=== PATIENT | female | born 2000 | race Caucasian/White ===

== ENCOUNTER 2018-02-19 18:26 | Emergency (ER) | payer SELFPAY ==
[~2018-02-19] VITALS: Ht 154.9 cm; Wt 49.9 kg
--- OUTSIDE RECORDS SUMMARY | 2018-02-19 18:30 | XMS REPORT ---
Author Author ELIZA BARKER Organization [facility] Address [address] [place] [address] Care Team Providers Care Derivatives Trader Name Role Phone ELIZA BARKER Unavailable PROBLEMS Type Condition ICD9-CM Code EKS17-GK Code Onset Dates Condition Status SNOMED Code Problem Current moderate episode of major depressive disorder, unspecified whether recurrent F32.1 Active 37857726 Problem Hair loss L65.9 Active 864019965 ALLERGIES Substance Reaction Event Type Date Status Penicillin V Potassium anaphylaxis Drug Allergy Nov, Active ENCOUNTERS Encounter Location Date Diagnosis [facility] [id number] [place] [address] 74998 -3643 Nov, Current moderate episode of major depressive disorder, unspecified whether recurrent F32.1 [facility] [id number] [place] [address] 69525- 3402 Nov, [facility] [id number] [place] [address] 40464- 8747 Nov, [facility] [id number] [place] [address] 53116- 9680 Nov, Unspecified contraceptive management Z30.9 [facility] [id number] [place] [address] 03939 -9906 Nov, [facility] [id number] [place] [address] 84845 -6459 Nov, [facility] [id number] [place] [address] 50283 -3487 Nov, [facility] [id number] [place] [address] 87041- 3025 Nov, Current moderate episode of major depressive disorder, unspecified whether recurrent F32.1 [place] [id number] [place] [address] 35531- 0318 Oct, [place] [id number] [place] [address] 90892- 6794 Sep, Current moderate episode of major depressive disorder, unspecified whether recurrent F32.1 [place] [id number] [place] [address] 30833- 8709 Sep, Current moderate episode of major depressive disorder, unspecified whether recurrent F32.1 [place] [id number] [place] [address] 82249- 1921 August, Current moderate episode of major depressive disorder, unspecified whether recurrent F32.1 [place] [id number] [place] [address] 95246- 4655 August, Pain of left hand M79.642 and Pain in right hand M79.641 [place] [id number] [place] [address] 03149- 1068 August, Pain of left hand M79.642 ; Pain in right hand M79.641 ; Pain in left wrist M25.532 ; Pain in right wrist M25.531 and Bilateral elbow tendonitis M77.8 [place] [id number] [place] [address] 16203- 7287 Jul, Hair loss L65.9 [place] [id number] [place] [address] 02835- 7655 28 May, 2017 Fatigue, unspecified type R53.83 and Family history of diabetes mellitus Z83.3 [place] [id number] [place] [address] 11844- 3773 May, Unspecified contraceptive management Z30.9 [place] [id number] [place] [address] 73682- 9556 Apr, Encounter for Depo-Provera contraception Z30.42 [place] [id number] [place] [address] 25640- 2587 Apr, [facility] [id number] [place] [address] 29804- 6899 Feb, Encounter for Depo-Provera contraception Z30.42 [facility] [id number] [place] [address] 32720 -5124 Jan, Colitis K52.9 [facility] [address] 16781- 7973 Dec, Sore throat J02.9 and Acute nasopharyngitis J00 [place] [id number] [place] [address] 25471- 4715 Nov, control counseling Z30.09 ; Screening for STD sexually transmitted disease Z11.3 and Encounter for Depo-Provera contraception Z30.42 [place] [id number] [place] [address] 55420- 7105 August, [facility] [id number] [place] [address] 70936 -7225 Jul, Screening breast examination Z12.39 [place] [address] 96039- 5886 Jul, Encounter for Depo-Provera contraception Z30.42 [place] [id number] [place] [address] 11271- 5434 Apr, Encounter for Depo-Provera contraception Z30.42 [place] [id number] [place] [address] 45425- 0750 Feb, Encounter for Depo-Provera contraception Z30.42 [place] [id number] [place] [address] 52568- 9305 07 Dec, 2015 Pelvic pain R10.2 [place] [id number] [place] [address] 05396- 8362 Oct, Well child check Z00.129 ; Encounter for immunization Z23 ; Dietary counseling Z71.3 and Exercise counseling Z71.89 [facility] [address] [address]- 8852 Oct, Encounter for Depo-Provera contraception Z30.42 [facility] [address] [address]- 9656 Jul, Encounter for Depo-Provera contraception Z30.42 [address] [id number] Jun, Dental examination Z01.20 [facility] [address] [address] Jun, Encounter for dental examination Z01.20 [place] [address] [place] [address] 20264- 9208 May, Surveillance of contraceptive injection Z30.42 ; Encounter for Depo-Provera contraception Z30.42 and Routine screening for STI (sexually transmitted infection) Z11.3 [place] [address] [place] [address] 11226- 5644 Feb, Initiation of Depo Provera Z30.8 and Encounter for prescription for depo-Provera Z30.013 [place] [address] [place] [address] 41364- 8988 Jan, Sore throat J02.9 and Chronic tonsillitis J35.01 [place] [address] [place] [address] 58660- 0275 Oct, Routine child health exam V20.2 ; Dietary counseling and surveillance V65.3 and Exercise counseling V65.41 [place] [address] [place] [address] 89135- 2712 Jul, [place] [address] [place] [address] 31415- 9484 Jul, [place] [address] [place] [address] 94344- 4637 Apr, [place] [id number] [place] [address]- 4763 Apr, [facility] [address] [id number] [place] [address]- 7228 Apr, [facility] [place] [facility] [address] [id number] [place] [address]- 0814 Apr, [facility] [address] [id number] [place] [address]- 8010 Apr, [facility] [address] [id number] [place] [address]- 2895 Apr, [facility] [address] [id number] [place] [address]- 1913 Mar, [facility] [address] [id number] [place] [address]- 3639 Mar, [facility] [address] [id number] [place] [address]- 7344 Mar, [facility] [address] [id number] [place] [address]- 8536 Mar, [facility] [address] [id number] [place] [address]- 8805 Mar, [facility] [address] [id number] [place] [address]- 6117 Mar, [facility] [place] [facility] [address] [id number] [place] [address]- 1786 Mar, [facility] [place] [facility] [address] [id number] [place] [address]- 0594 Mar, [facility] [place] [facility] [address] [id number] [place] [address] Mar, [facility] [place] [facility] [address] [id number] [place] [address]- 8976 17 Mar, 2014 [facility] [place] [facility] [address] [id number] [place] [address]- 2759 Mar, [facility] [place] [facility] [address] [id number] [place] [address]- 5891 Mar, [facility] [place] [facility] [address] [id number] [place] [address]- 1255 Jan, [facility] [place] [facility] [address] [id number] [place] [address]- 3040 Jan, [facility] [place] [facility] [address] [id number] [place] [address]- 9496 Jan, [facility] [place] [facility] [address] [id number] [place] [address]- 8612 Jan, [facility] [place] [facility] [address] [id number] [place] [address]- 3546 Dec, [facility] [place] [facility] [address] [id number] [place] [address]- 5782 Dec, [facility] [place] [facility] [address] [id number] [place] [address]- 9945 August, [facility] [place] [facility] [address] [id number] [place] [address]- 5676 August, [facility] [place] [facility] [address] [id number] [place] [address]- 5033 Jun, [facility] [place] [facility] [address] [id number] [place] [address]- 1389 Jun, [facility] [place] [facility] [address] [id number], [place] [address]- 5378 Apr, [facility] [place] [facility] [address] [id number] [place] [address]- 0040 Apr, [facility] [place] [facility] [address] [id number] [place] [address]- 8036 Mar, [facility] [place] [facility] [address] [id number] [place] [address]- 7845 Mar, [facility] [place] [facility] [address] [id number], [place] [address]- 3056 14 Feb, 2013 [facility] [address] [facility] [id number] [address]- 5964 14 Feb, 2013 [facility] [id number] [address]- 8926 Oct, [facility] [id number], [place] [address]- 7067 Jul, [facility] [id number], [place] [address]- 5610 Jul, [facility] [id number], [place] [address]- 2935 Mar, [facility] [address] [id number], [place] [address]- 1272 August, IMMUNIZATIONS No Known Immunizations SOCIAL HISTORY Never Assessed REASON FOR VISIT Depression F/U for meds uzma SOLOMON PLAN OF CARE Activity Details Follow Up 3 Months, prn Reason:depression VITAL SIGNS Height 60.5 in 2017-11-28 Weight 108 lbs 2017-11-28 Temperature 98.1 degrees Fahrenheit 2017-11-28 Heart Rate 78 bpm 2017-11-28 Respiratory Rate 16 2017-11-28 BMI 20.74 kg/m2 2017-11-28 Blood pressure systolic 102 mmHg 2017-11-28 Blood pressure diastolic 66 mmHg 2017-11-28 MEDICATIONS Medication Instructions Dosage Frequency Start Date End Date Duration Status Ortho Tri-Cyclen (28) 0.18/0.215/0.25 MG-35 MCG Orally Once a day 1 tablet 24h May, 28 day(s) Active Paroxetine HCl 20 mg Orally Once a day 1 tablet in the morning 24h August, 30 day(s) Active Doxycycline 40 MG Orally Once a day 1 capsule on an empty stomach in the morning 24h Active RESULTS No Results PROCEDURES No Known procedures INSTRUCTIONS MEDICATIONS ADMINISTERED No Known Medications MEDICAL (GENERAL) HISTORY Type Description Date Medical History Depressive disorder, not elsewhere classified Surgical History myringotomy with ventilating tube Surgical History umbilical hernia surgery 2010
--- OUTSIDE RECORDS SUMMARY | 2018-02-19 18:30 | XMS REPORT ---
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 Name Role Phone ELIZA BARKER Unavailable PROBLEMS Type Condition ICD9-CM Code SKK80-DL Code Onset Dates Condition Status SNOMED Code Problem Current moderate episode of major depressive disorder, unspecified whether recurrent F32.1 Active 37997018 Problem Hair loss L65.9 Active 749335391 ALLERGIES No Information ENCOUNTERS Encounter Location Date Diagnosis [facility] [id number] [place] [address] 60598 -2150 Nov, Current moderate episode of major depressive disorder, unspecified whether recurrent F32.1 [facility] [id number] [place] [address] 59682- 0165 Nov, Unspecified contraceptive management Z30.9 [facility] [address] 81767- 0544 Nov, [facility] [id number] [place] [address] 00792- 8037 Nov, [facility] [id number] [place] [address] 91226 -2942 Nov, [facility] [id number] [place] [address] 75871 -0455 Nov, [facility] [id number] [place] [address] 11636 -5830 Nov, [facility] [id number] [place] [address] 47124- 7498 Nov, Current moderate episode of major depressive disorder, unspecified whether recurrent F32.1 [facility] [address] [place] [address]- 0917 Oct, [place] [id number] [place] [address] 90158- 1683 Sep, Current moderate episode of major depressive disorder, unspecified whether recurrent F32.1 [place] [id number] [place] [address] 98242- 9178 Sep, Current moderate episode of major depressive disorder, unspecified whether recurrent F32.1 [place] [id number] [place] [address] 89723- 5724 August, Current moderate episode of major depressive disorder, unspecified whether recurrent F32.1 [place] [id number] [place] [address] 31994- 1506 August, Pain of left hand M79.642 and Pain in right hand M79.641 [place] [address] 35484- 8610 August, Pain of left hand M79.642 ; Pain in right hand M79.641 ; Pain in left wrist M25.532 ; Pain in right wrist M25.531 and Bilateral elbow tendonitis M77.8 [place] [id number] [place] [address] 51865- 3716 Jul, Hair loss L65.9 [place] [id number] [place] [address] 88783- 6499 28 May, 2017 Fatigue, unspecified type R53.83 and Family history of diabetes mellitus Z83.3 [place] [id number] [place] [address] 29552- 4147 May, Unspecified contraceptive management Z30.9 [place] [address] 43344- 3171 Apr, Encounter for Depo-Provera contraception Z30.42 [place] [id number] [place] [address] 65463- 1969 Apr, [place] [id number] [place] [address] 15378- 5853 Feb, Encounter for Depo-Provera contraception Z30.42 [facility] [id number] [place] [address] 62516 -0998 Jan, Colitis K52.9 [facility] [id number] [place] [address] 77687- 2385 Dec, Sore throat J02.9 and Acute nasopharyngitis J00 [place] [id number] [place] [address] 29575- 2223 Nov, control counseling Z30.09 ; Screening for STD sexually transmitted disease Z11.3 and Encounter for Depo-Provera contraception Z30.42 [place] [id number] [place] [address] 24779- 7704 August, [facility] [id number] [place] [address] 68625 -5733 Jul, Screening breast examination Z12.39 [place] [id number] [place] [address] 20850- 0586 Jul, Encounter for Depo-Provera contraception Z30.42 [place] [id number] [place] [address] 53481- 9939 Apr, Encounter for Depo-Provera contraception Z30.42 [place] [id number] [place] [address] 46864- 7858 Feb, Encounter for Depo-Provera contraception Z30.42 [place] [id number] [place] [address] 51033- 4872 07 Dec, 2015 Pelvic pain R10.2 [place] [id number] [place] [address] 01929- 5905 Oct, Well child check Z00.129 ; Encounter for immunization Z23 ; Dietary counseling Z71.3 and Exercise counseling Z71.89 [place] [id number], [place] [address]- 6774 Oct, Encounter for Depo-Provera contraception Z30.42 [place] [address] [place] [address] 81813- 9612 Jul, Encounter for Depo-Provera contraception Z30.42 [place] [address] [id number] [id number] Jun, Dental examination Z01.20 [facility] [address] [id number] Jun, Encounter for dental examination Z01.20 [place] [id number] [place] [address] 16110- 8832 May, Surveillance of contraceptive injection Z30.42 ; Encounter for Depo-Provera contraception Z30.42 and Routine screening for STI (sexually transmitted infection) Z11.3 [place] [id number] [place] [address] 37120- 5289 Feb, Initiation of Depo Provera Z30.8 and Encounter for prescription for depo-Provera Z30.013 [place] [id number] [place] [address] 78549- 1171 Jan, Sore throat J02.9 and Chronic tonsillitis J35.01 [place] [address] [place] [address] 01649- 0636 Oct, Routine child health exam V20.2 ; Dietary counseling and surveillance V65.3 and Exercise counseling V65.41 [place] [address], [place] [address]- 6770 Jul, [place] [id number] [place] [address] 30936- 4700 Jul, [place] [id number] [place] [address] 15600- 3657 Apr, [place] [id number] [place] [address] 20915- 3732 Apr, [facility] [place] [facility] [address] [id number] [place] [address]- 9395 Apr, [facility] [place] [facility] [address] [id number] [place] [address]- 9428 Apr, [facility] [place] [facility] [address] [id number] [place] 7834 Apr, [facility] [place] [facility] [address] [id number] [place] [address]- 8654 Apr, [facility] [place] [facility] [address] [id number] [place] [address]- 2992 Mar, [facility] [place] [facility] [address] [id number] [place] [address]- 1991 Mar, [facility] [place] [facility] [address] [id number] [place] [address]- 1637 Mar, [facility] [place] [facility] [address] [id number] [place] [address]- 5376 Mar, [facility] [place] [facility] [address] [id number] [place] [address]- 3342 Mar, [facility] [place] [facility] [address] [id number] [place] [address]- 0730 Mar, [facility] [place] [facility] [address] [id number] [place] [address]- 8056 Mar, [facility] [place] [facility] [address] [id number] [place] [address]- 9240 Mar, [facility] [place] [facility] [address] [id number] [place] [address]- 3229 Mar, [facility] [place] [facility] [address] [id number] [place] [address]- 0884 17 Mar, 2014 [facility] [place] [facility] [address] [id number] [place] 9109 Mar, [facility] [place] [facility] [address] [id number] [place] [address]- 9103 Mar, [facility] [address] [id number] [place] [address]- 0695 Jan, [facility] [place] [facility] [address] [id number] [place] [address]- 3776 Jan, [facility] [address] [id number] [place] [address]- 0256 Jan, [facility] [place] [facility] [address] [id number] [place] [address] 2542 Jan, [facility] [place] [facility] [address] [id number] [place] [address]- 6727 Dec, [facility] [place] [facility] [address] [id number] [place] [address]- 4358 Dec, [facility] [address] [id number] [place] [address]- 8239 August, [facility] [address] [id number] [place] [address]- 9253 August, [facility] [place] [facility] [address] [id number] [place] [address]- 0290 Jun, [facility] [place] [facility] [address] [id number] [place] [address]- 1565 Jun, [facility] [place] [facility] [address] [id number] [place] [address]- 7784 Apr, [facility] [place] [facility] [address] [id number] [place] [address]- 8668 Apr, [facility] [place] [facility] [address] [id number] [place] [address]- 9402 Mar, [facility] [place] [facility] [address] [id number] [place] [address]- 8640 Mar, [facility] [place] [facility] [address] [id number] [place] [address]- 7561 14 Feb, 2013 [facility] [address] [id number], [place] [address]- 7116 14 Feb, 2013 [facility] [id number] [address] Oct, [facility] [id number], [place] [address] Jul, [facility] [id number], [place] [address] Jul, [facility] [id number], [place] [address] Mar, [facility] [address] [id number], [place] [address] August, IMMUNIZATIONS No Known Immunizations SOCIAL HISTORY Never Assessed REASON FOR VISIT New Refill Request PLAN OF CARE VITAL SIGNS MEDICATIONS No Known Medications RESULTS No Results PROCEDURES No Known procedures INSTRUCTIONS MEDICATIONS ADMINISTERED No Known Medications MEDICAL (GENERAL) HISTORY Type Description Date Medical History Depressive disorder, not elsewhere classified Surgical History myringotomy with ventilating tube Surgical History umbilical hernia surgery 2010
--- OUTSIDE RECORDS SUMMARY | 2018-02-19 18:30 | XMS REPORT ---
Author Author ELIZA BARKER Organization [facility] Address [address] [place] [address] Care Team Providers Care Diabetologist Name Role Phone ELIZA BARKER Unavailable PROBLEMS Type Condition ICD9-CM Code [id number] Code Onset Dates Condition Status SNOMED Code Problem Current moderate episode of major depressive disorder, unspecified whether recurrent F32.1 Active 37548807 Problem Hair loss L65.9 Active [id number] ALLERGIES No Information ENCOUNTERS Encounter Location Date Diagnosis [facility] [id number] [place] [address] [id number] Dec, [facility] [address] [address]17 -[address] Nov, Current moderate episode of major depressive disorder, unspecified whether recurrent F32.1 [facility] [id number] [place] [address] 20754- 1046 Nov, Unspecified contraceptive management Z30.9 [facility] [id number] [place] [address] 97318- 7775 Nov, [facility] [id number] [place] [address] 00643- 4514 Nov, [facility] [id number] [place] [address] 19662 -1773 Nov, [facility] [id number] [place] [address] 45502 -8211 Nov, [facility] [id number] [place] [address] 04280 -6067 Nov, [facility] [id number] [place] [address] 14038- 7564 Nov, Current moderate episode of major depressive disorder, unspecified whether recurrent F32.1 [address], [place] [address] 0177 Oct, [place] [id number] [place] [address] 60895- 9626 Sep, Current moderate episode of major depressive disorder, unspecified whether recurrent F32.1 [place] [id number] [place] [address] 29698- 6083 Sep, Current moderate episode of major depressive disorder, unspecified whether recurrent F32.1 [place] [id number] [place] [address] 09458- 9556 August, Current moderate episode of major depressive disorder, unspecified whether recurrent F32.1 [place] [id number] [place] [address] 05471- 6242 August, Pain of left hand M79.642 and Pain in right hand M79.641 [place] [id number] [place] [address] 67159- 2540 August, Pain of left hand M79.642 ; Pain in right hand M79.641 ; Pain in left wrist M25.532 ; Pain in right wrist M25.531 and Bilateral elbow tendonitis M77.8 [place] [id number] [place] [address] 22291- 4399 Jul, Hair loss L65.9 [place] [id number] [place] [address] 63275- 5697 May, Fatigue, unspecified type R53.83 and Family history of diabetes mellitus Z83.3 [place] [id number] [place] [address] 97433- 3655 May, Unspecified contraceptive management Z30.9 [address] [id number] [place] [address] 94045- 2670 Apr, Encounter for Depo-Provera contraception Z30.42 [place] [id number] [place] [address] 36048- 9527 Apr, [facility] [id number] [place] [address] 15365- 5323 Feb, Encounter for Depo-Provera contraception Z30.42 [facility] [id number] [place] [address] 90600 -6135 Jan, Colitis K52.9 [facility] [address] 31413- 5688 Dec, Sore throat J02.9 and Acute nasopharyngitis J00 [address] 88849- 3305 Nov, control counseling Z30.09 ; Screening for STD sexually transmitted disease Z11.3 and Encounter for Depo-Provera contraception Z30.42 [place] [id number] [place] [address] 07626- 4183 August, [facility] [id number] [place] [address] 11760 -4139 Jul, Screening breast examination Z12.39 [place] [id number] [place] [address] 45874- 8538 Jul, Encounter for Depo-Provera contraception Z30.42 [place] [id number] [place] [address] 13534- 6404 Apr, Encounter for Depo-Provera contraception Z30.42 [place] [id number] [place] [address] 16531- 3331 Feb, Encounter for Depo-Provera contraception Z30.42 [place] [address] 60797- 6317 Dec, Pelvic pain R10.2 [place] [id number] [place] [address] 63305- 8763 Oct, Well child check Z00.129 ; Encounter for immunization Z23 ; Dietary counseling Z71.3 and Exercise counseling Z71.89 [address], [place] [address] 6927 Oct, Encounter for Depo-Provera contraception Z30.42 [address], [place] [address]- 9563 Jul, Encounter for Depo-Provera contraception Z30.42 [id number] [id number] Jun, Dental examination Z01.20 [facility] [address] [place] [address] [id number] Jun, Encounter for dental examination Z01.20 [address] [id number] [place] [address] 84220- 1119 May, Surveillance of contraceptive injection Z30.42 ; Encounter for Depo-Provera contraception Z30.42 and Routine screening for STI (sexually transmitted infection) Z11.3 [id number] [place] [address] 33939- 3294 Feb, Initiation of Depo Provera Z30.8 and Encounter for prescription for depo-Provera Z30.013 [place] [address], [place] [address]- 9463 07 Jan, 2015 Sore throat J02.9 and Chronic tonsillitis J35.01 [place] [address] [address] [place] [address] 00300- 4104 08 Oct, 2014 Routine child health exam V20.2 ; Dietary counseling and surveillance V65.3 and Exercise counseling V65.41 [place] [id number] [place] [address] 06393- 8775 14 Jul, 2014 [place] [id number] [place] [address] 89945- 3259 13 Jul, 2014 [place] [id number] [place] [address] 99740- 3369 Apr, [facility] [place] [facility] [address] [id number] [place] [address]- 6346 Apr, [facility] [place] [facility] [address] [id number] [place] [address]- 8791 Apr, [facility] [place] [facility] [address] [id number] [place] [address]- 9214 Apr, [facility] [place] [facility] [address] [id number] [place] [address]- 3019 Apr, [facility] [place] [facility] [address] [id number] [place] [address]- 2975 Apr, [facility] [place] [facility] [address] [id number] [place] [address]- 8295 Mar, [facility] [place] [facility] [address] [id number] [place] [address]- 0021 Mar, [facility] [place] [facility] [address] [id number] [place] [address]- 1481 Mar, [facility] [place] [facility] [address] [id number] [place] [address]- 3385 Mar, [facility] [place] [facility] [address] [id number] [place] [address]- 8594 Mar, [facility] [place] [facility] [address] [id number] [place] [address]- 9255 18 Mar, 2014 [facility] [place] [facility] [address] [id number] [place] [address]- 9115 18 Mar, 2014 [facility] [place] [facility] [address] [id number] [place] [address]- 7777 18 Mar, 2014 [facility] [place] [facility] [address] [id number] [place] [address]- 3323 18 Mar, 2014 [facility] [place] [facility] [address] [id number] [place] [address]- 0139 17 Mar, 2014 [facility] [place] [facility] [address] [id number] [place] [address]- 2016 Mar, [facility] [place] [facility] [address] [id number] [place] [address]- 6858 Mar, [facility] [place] [facility] [address] [id number] [place] [address]- 2702 Jan, [facility] [place] [facility] [address] [id number] [place] [address]- 5043 Jan, [facility] [place] [facility] [address] [id number] [place] [address]- 5122 Jan, [facility] [place] [facility] [address] [id number] [place] [address]- 6516 Jan, [facility] [place] [facility] [address] [id number] [place] [address]- 7100 Dec, [facility] [place] [facility] [address] [id number] [place] [address]- 0030 Dec, [facility] [place] [facility] [address] [id number] [place] [address]- 3137 August, [facility] [place] [facility] [address] [id number] [place] [address]- 3131 August, [facility] [place] [facility] [address] [facility] [id number] [place] [address]- 5105 Jun, [facility] [place] [facility] [address] [id number] [place] [address]- 2671 Jun, [facility] [place] [facility] [address] [id number] [place] [address]- 4922 Apr, [facility] [place] [facility] [address] [id number] [place] [address]- 1498 Apr, [facility] [place] [facility] [address] [id number] [place] [address]- 2365 Mar, [facility] [place] [facility] [address] [id number] [place] [address]- 8467 Mar, [facility] [id number], [place] [address]- 9685 Feb, [facility] [address], [place] [address]- 5316 Feb, [facility] [address], [place] [address]- 4933 Oct, [facility] [id number] [place] [address] 08689- 7240 Jul, [facility] [address], [place] [address]- 2761 Jul, [facility] [address], [place] [address]- 2932 Mar, [facility] [id number], [place] [address]- 4420 August, IMMUNIZATIONS No Known Immunizations SOCIAL HISTORY Never Assessed REASON FOR VISIT New Refill Request PLAN OF CARE VITAL SIGNS MEDICATIONS Unknown Medications RESULTS No Results PROCEDURES No Known procedures INSTRUCTIONS MEDICATIONS ADMINISTERED No Known Medications MEDICAL (GENERAL) HISTORY Type Description Date Medical History Depressive disorder, not elsewhere classified Surgical History myringotomy with ventilating tube Surgical History umbilical hernia surgery 2010
--- OUTSIDE RECORDS SUMMARY | 2018-02-19 18:30 | XMS REPORT ---
Author Author MAZIN BABIN Organization [facility] Address [address] [place] [address] Care Team Providers Care Passenger Coach Driver Name Role Phone MAZIN BABIN Unavailable PROBLEMS Type Condition ICD9-CM Code ISC06-PT Code Onset Dates Condition Status SNOMED Code Problem Current moderate episode of major depressive disorder, unspecified whether recurrent F32.1 Active [id number] Problem Hair loss L65.9 Active 045014913 ALLERGIES Substance Reaction Event Type Date Status Penicillin V Potassium anaphylaxis Drug Allergy Jan, Active ENCOUNTERS Encounter Location Date Diagnosis [facility] [id number] [place] [address] 09145 -3942 Jan, Acute suppurative otitis media of left ear without spontaneous rupture of tympanic membrane, recurrence not specified H66.002 [facility] [id number] [place] [address] [id number] Dec, [facility] [id number] [place] [address] 35784 -2600 Nov, Current moderate episode of major depressive disorder, unspecified whether recurrent F32.1 [facility] [id number] [place] [address] 36578- 7596 Nov, Unspecified contraceptive management Z30.9 [facility] [id number] [place] [address] 00853- 9269 Nov, [facility] [id number] [place] [address] 00624- 7399 Nov, [facility] [id number] [place] [address] 92345 -8832 Nov, [facility] [id number] [place] [address] 23791 -4515 Nov, [facility] [address], [place] [address] -4928 Nov, [facility] [id number] [place] [address] 52557- 2275 Nov, Current moderate episode of major depressive disorder, unspecified whether recurrent F32.1 [facility] [id number] [place] [address] 16658- 3950 Oct, [facility] [id number] [place] [address] 19530- 9791 Sep, Current moderate episode of major depressive disorder, unspecified whether recurrent F32.1 [facility] [address], [place] [address]- 1474 Sep, Current moderate episode of major depressive disorder, unspecified whether recurrent F32.1 [facility] [id number] [place] [address] 73573- 2785 August, Current moderate episode of major depressive disorder, unspecified whether recurrent F32.1 [place] [id number] [place] [address] 72805- 4897 August, Pain of left hand M79.642 and Pain in right hand M79.641 [place], [place] [address]- 7389 August, Pain of left hand M79.642 ; Pain in right hand M79.641 ; Pain in left wrist M25.532 ; Pain in right wrist M25.531 and Bilateral elbow tendonitis M77.8 [place] [address] [place] [address] 03958- 7806 Jul, Hair loss L65.9 [facility] [address], [place] [address]- 1041 May, Fatigue, unspecified type R53.83 and Family history of diabetes mellitus Z83.3 [place] [address], [place] [address]- 3965 May, Unspecified contraceptive management Z30.9 [place] [id number] [place] [address] 37554- 3719 Apr, Encounter for Depo-Provera contraception Z30.42 [place] [id number] [place] [address] 95345- 9008 Apr, [place] [id number] [place] [address] 76608- 9752 Feb, Encounter for Depo-Provera contraception Z30.42 [facility] [id number] [place] [address] 48385 -6929 Jan, Colitis K52.9 [place] [id number] [place] [address] 49048- 2754 Dec, Sore throat J02.9 and Acute nasopharyngitis J00 [place] [address] [id number] [place] [address] 16309- 7097 Nov, control counseling Z30.09 ; Screening for STD sexually transmitted disease Z11.3 and Encounter for Depo-Provera contraception Z30.42 [place] [address] [address] [place] [address] 09927- 5807 August, [facility] [address] [place] [address] 32339 -8913 Jul, Screening breast examination Z12.39 [place] [id number] [place] [address] 15452- 0688 Jul, Encounter for Depo-Provera contraception Z30.42 [place] [id number] [place] [address] 65353- 8849 Apr, Encounter for Depo-Provera contraception Z30.42 [place] [id number] [place] [address] 73429- 7967 Feb, Encounter for Depo-Provera contraception Z30.42 [place] [address], [place] [address]- 2763 07 Dec, 2015 Pelvic pain R10.2 [address] [place] [address] 87307- 2392 Oct, Well child check Z00.129 ; Encounter for immunization Z23 ; Dietary counseling Z71.3 and Exercise counseling Z71.89 [address] [place] [address] 50379- 2300 Oct, Encounter for Depo-Provera contraception Z30.42 [id number] [place] [address] 79956- 5965 Jul, Encounter for Depo-Provera contraception Z30.[address] [id number] [place] [id number] Jun, Dental examination Z01.20 [facility] [address] [place] [address] [id number] Jun, Encounter for dental examination Z01.20 [address] [place] [address] 97111- 3954 May, Surveillance of contraceptive injection Z30.42 ; Encounter for Depo-Provera contraception Z30.42 and Routine screening for STI (sexually transmitted infection) Z11.3 [address] [place] [address] 01621- 8493 Feb, Initiation of Depo Provera Z30.8 and Encounter for prescription for depo-Provera Z30.013 [place] [address] [place] [address] 87432- 4560 07 Jan, 2015 Sore throat J02.9 and Chronic tonsillitis J35.01 [place] [address] [place] [address] 65880- 2734 08 Oct, 2014 Routine child health exam V20.2 ; Dietary counseling and surveillance V65.3 and Exercise counseling V65.41 [place] [address] [facility] [id number] [place] [address]- 4485 14 Jul, 2014 [facility] [address] [id number] [place] [address]- 8815 13 Jul, 2014 [facility] [place] [facility] [address] [id number] [place] [address]- 3337 Apr, [facility] [address] [id number] [place] [address]- 1189 Apr, [facility] [place] [facility] [address] [id number] [place] [address]- 6785 Apr, [facility] [address] [id number] [place] [address]- 9704 Apr, [facility] [address] [id number] [place] [address]- 7081 Apr, [facility] [address] [id number] [place] [address]- 8817 Apr, [facility] [address] [id number] [place] [address]- 7076 Mar, [facility] [place] [facility] [address] [id number] [place] [address]- 5673 Mar, [facility] [address] [id number] [place] [address]- 0422 Mar, [facility] [place] [facility] [address] [id number] [place] [address]- 3617 Mar, [facility] [place] [facility] [address] [id number] [place] [address]- 2523 Mar, [facility] [place] [facility] [address] [id number] [place] [address]- 0134 Mar, [facility] [place] [facility] [address] [id number] [place] [address]- 7516 Mar, [facility] [place] [facility] [address] [id number] [place] [address]- 0281 Mar, [facility] [place] [facility] [address] [id number] [place] [address]- 2932 Mar, [facility] [place] [facility] [address] [id number] [place] [address]- 5582 Mar, [facility] [place] [facility] [address] [id number] [place] [address]- 0112 Mar, [facility] [place] [facility] [address] [id number] [place] [address]- 7609 Mar, [facility] [place] [facility] [address] [id number] [place]297 Jan, [facility] [place] [facility] [address] [id number] [place] 7041 Jan, [facility] [place] [facility] [address] [id number] [place] [address]- 2831 Jan, [facility] [place] [facility] [address] [id number] [place] [address]- 8149 Jan, [facility] [place] [facility] [address] [id number] [place] [address]- 7553 Dec, [facility] [place] [facility] [address] [id number] [place] [address]- 3298 Dec, [facility] [place] [facility] [address] [id number] [place] [address]- 8474 August, [facility] [place] [facility] [address] [id number] [address]- 7761 August, [facility] [place] [facility] [address] [id number] [place] [address]- 8249 Jun, [facility] [place] [facility] [address] [id number] [place] [address]- 6025 Jun, [facility] [place] [facility] [address] [id number] [place] [address]- 7545 Apr, [facility] [place] [facility] [id number] [address]- 6659 Apr, [facility] [id number] [address]- 0341 Mar, [facility] [address] 0575 Mar, [facility] [address], [place] [address]- 8912 Feb, [facility] [address], [place] [address]- 3255 Feb, [facility] [address], [place] [address]- 6250 Oct, [facility] [address], [place] [address]- 2870 Jul, [facility] [address], [place] [address] Jul, [facility] [id number] [address] Mar, [facility] [id number], [place] [address] August, IMMUNIZATIONS No Known Immunizations SOCIAL HISTORY Never Assessed REASON FOR VISIT Face pain, left side. History of bells palsy right side [id number] PLAN OF CARE Activity Details Follow Up prn Reason: VITAL SIGNS Height 60.5 in 2018-02-06 Weight 108.8 lbs 2018-02-06 Temperature 98.9 degrees Fahrenheit 2018-02-06 Heart Rate 76 bpm 2018-02-06 Respiratory Rate 20 2018-02-06 BMI 20.90 kg/m2 2018-02-06 Blood pressure systolic 100 mmHg 2018-02-06 Blood pressure diastolic 68 mmHg 2018-02-06 MEDICATIONS Medication Instructions Dosage Frequency Start Date End Date Duration Status Paroxetine HCl 20 mg Orally Once a day 1 tablet in the morning 24h August, 30 day(s) Active Doxycycline 40 MG Orally Once a day 1 capsule on an empty stomach in the morning 24h Active Clindamycin HCl 300 MG Orally every 6 hrs 1 capsule 6h 24 Oct, 2018 10 days Active RESULTS No Results PROCEDURES No Known procedures INSTRUCTIONS MEDICATIONS ADMINISTERED No Known Medications MEDICAL (GENERAL) HISTORY Type Description Date Medical History Depressive disorder, not elsewhere classified Surgical History myringotomy with ventilating tube Surgical History umbilical hernia surgery 2010
--- OUTSIDE RECORDS SUMMARY | 2018-02-19 18:31 | XMS REPORT ---
Author Author ELIZA BARKER Organization [facility] Address [address] [place] [address] Care Team Providers Care Electric Mule Operator Name Role Phone ELIZA BARKER Unavailable PROBLEMS Type Condition ICD9-CM Code [id number] Code Onset Dates Condition Status SNOMED Code Problem Current moderate episode of major depressive disorder, unspecified whether recurrent F32.1 Active 55869066 Problem Hair loss L65.9 Active 150865533 ALLERGIES No Information ENCOUNTERS Encounter Location Date Diagnosis [facility] [id number] [place] [address] 08870 -8197 Nov, Current moderate episode of major depressive disorder, unspecified whether recurrent F32.1 [facility] [id number] [place] [address] 85680- 6858 Nov, Unspecified contraceptive management Z30.9 [facility] [address] 52356- 6848 Nov, [facility] [id number] [place] [address] 36141- 9753 Nov, [facility] [id number] [place] [address] 02691 -1443 Nov, [facility] [id number] [place] [address] 63799 -9368 Nov, [facility] [id number] [place] [address] 29650 -2501 Nov, [facility] [id number] [place] [address] 15157- 5428 Nov, Current moderate episode of major depressive disorder, unspecified whether recurrent F32.1 [facility] [address] [place] [address]- 6013 Oct, [place] [id number] [place] [address] 71963- 5864 Sep, Current moderate episode of major depressive disorder, unspecified whether recurrent F32.1 [place] [id number] [place] [address] 27269- 9506 Sep, Current moderate episode of major depressive disorder, unspecified whether recurrent F32.1 [place] [id number] [place] [address] 40238- 4606 August, Current moderate episode of major depressive disorder, unspecified whether recurrent F32.1 [place] [id number] [place] [address] 97153- 1763 August, Pain of left hand M79.642 and Pain in right hand M79.641 [place] [address] 11352- 2035 August, Pain of left hand M79.642 ; Pain in right hand M79.641 ; Pain in left wrist M25.532 ; Pain in right wrist M25.531 and Bilateral elbow tendonitis M77.8 [place] [id number] [place] [address] 19408- 3222 Jul, Hair loss L65.9 [place] [id number] [place] [address] 54252- 6527 28 May, 2017 Fatigue, unspecified type R53.83 and Family history of diabetes mellitus Z83.3 [place] [id number] [place] [address] 14602- 0746 May, Unspecified contraceptive management Z30.9 [place] [address] 93716- 8182 Apr, Encounter for Depo-Provera contraception Z30.42 [place] [id number] [place] [address] 28068- 3161 Apr, [place] [id number] [place] [address] 90852- 6326 Feb, Encounter for Depo-Provera contraception Z30.42 [facility] [id number] [place] [address] 16013 -4202 Jan, Colitis K52.9 [facility] [id number] [place] [address] 59440- 3811 Dec, Sore throat J02.9 and Acute nasopharyngitis J00 [place] [id number] [place] [address] 00811- 3058 Nov, control counseling Z30.09 ; Screening for STD sexually transmitted disease Z11.3 and Encounter for Depo-Provera contraception Z30.42 [place] [id number] [place] [address] 27802- 4952 August, [facility] [id number] [place] [address] 19594 -9178 Jul, Screening breast examination Z12.39 [place] [id number] [place] [address] 56518- 2209 Jul, Encounter for Depo-Provera contraception Z30.42 [place] [id number] [place] [address] 84737- 2322 Apr, Encounter for Depo-Provera contraception Z30.42 [place] [id number] [place] [address] 22967- 8518 Feb, Encounter for Depo-Provera contraception Z30.42 [place] [id number] [place] [address] 15103- 2456 07 Dec, 2015 Pelvic pain R10.2 [place] [id number] [place] [address] 96277- 7868 Oct, Well child check Z00.129 ; Encounter for immunization Z23 ; Dietary counseling Z71.3 and Exercise counseling Z71.89 [place] [id number] [address]- 0118 Oct, Encounter for Depo-Provera contraception Z30.42 [place] [id number] [place] [address] 36451- 1860 Jul, Encounter for Depo-Provera contraception Z30.42 [place] [address] [place] [id number] [id number] Jun, Dental examination Z01.20 [facility] [address] [address] Jun, Encounter for dental examination Z01.20 [place] [id number] [place] [address] 60620- 8585 May, Surveillance of contraceptive injection Z30.42 ; Encounter for Depo-Provera contraception Z30.42 and Routine screening for STI (sexually transmitted infection) Z11.3 [place] [id number] [place] [address] 54700- 3797 Feb, Initiation of Depo Provera Z30.8 and Encounter for prescription for depo-Provera Z30.013 [place] [id number] [place] [address] 56003- 4312 Jan, Sore throat J02.9 and Chronic tonsillitis J35.01 [place] [address] [place] [address] 36776- 4099 Oct, Routine child health exam V20.2 ; Dietary counseling and surveillance V65.3 and Exercise counseling V65.41 [place] [address] [address]- 8464 Jul, [place] [id number] [place] [address] 62504- 2985 Jul, [place] [id number] [place] [address] 45233- 7781 Apr, [place] [id number] [place] [address] 31748- 0197 Apr, [facility] [place] [facility] [address] [id number] [place] [address]- 4891 Apr, [facility] [place] [facility] [address] [id number] [place] [address]- 1733 Apr, [facility] [place] [facility] [address] [id number] [place] 5214 Apr, [facility] [place] [facility] [address] [id number] [place] [address]- 1670 Apr, [facility] [place] [facility] [address] [id number] [place] [address]- 4042 Mar, [facility] [place] [facility] [address] [id number] [place] [address]- 8421 Mar, [facility] [place] [facility] [address] [id number] [place] [address]- 0785 Mar, [facility] [place] [facility] [address] [id number] [place] [address]- 0508 Mar, [facility] [place] [facility] [address] [id number] [place] [address]- 2952 Mar, [facility] [place] [facility] [address] [id number] [place] [address]- 5886 Mar, [facility] [place] [facility] [address] [id number] [place] [address]- 2600 Mar, [facility] [place] [facility] [address] [id number] [place] [address]- 5967 Mar, [facility] [place] [facility] [address] [id number] [place] [address]- 3737 Mar, [facility] [place] [facility] [address] [id number] [place] [address]- 8935 17 Mar, 2014 [facility] [place] [facility] [address] [id number] [place] 8680 Mar, [facility] [place] [facility] [address] [id number] [place] [address]- 9400 Mar, [facility] [address] [id number] [place] [address]- 0421 Jan, [facility] [place] [facility] [address] [id number] [place] [address]- 3256 Jan, [facility] [address] [id number] [place] [address]- 2416 Jan, [facility] [place] [facility] [address] [id number] [place] [address] 2545 Jan, [facility] [place] [facility] [address] [id number] [place] [address]- 6307 Dec, [facility] [place] [facility] [address] [id number] [place] [address]- 1970 Dec, [facility] [address] [id number] [place] [address]- 2904 August, [facility] [address] [id number] [place] [address]- 8731 August, [facility] [place] [facility] [address] [id number] [place] [address]- 0482 Jun, [facility] [place] [facility] [address] [id number] [place] [address]- 5215 Jun, [facility] [place] [facility] [address] [id number] [place] [address]- 5833 Apr, [facility] [place] [facility] [address] [id number] [place] [address]- 2074 Apr, [facility] [place] [facility] [address] [id number] [place] [address]- 0122 Mar, [facility] [place] [facility] [address] [id number] [place] [address]- 6728 Mar, [facility] [place] [facility] [address] [id number] [place] [address]- 1557 14 Feb, 2013 [facility] [id number] [address]- 4100 14 Feb, 2013 [facility] [address] [address] 2546 Oct, [facility] [address] [address]- 7745 Jul, [facility] [address] [address] 2546 Jul, [facility] [address] [address]- 6421 Mar, [facility] [address] [id number] [address]- 4674 August, IMMUNIZATIONS No Known Immunizations SOCIAL HISTORY Never Assessed REASON FOR VISIT Update Demographics - Personal Info PLAN OF CARE VITAL SIGNS MEDICATIONS No Known Medications RESULTS No Results PROCEDURES No Known procedures INSTRUCTIONS MEDICATIONS ADMINISTERED No Known Medications MEDICAL (GENERAL) HISTORY Type Description Date Medical History Depressive disorder, not elsewhere classified Surgical History myringotomy with ventilating tube Surgical History umbilical hernia surgery 2010
--- OUTSIDE RECORDS SUMMARY | 2018-02-19 18:31 | XMS REPORT ---
Author Author ELIZA BARKER Organization [facility] Address [address] [place] [address] Care Team Providers Care Supply Chain Generalist Name Role Phone ELIZA BARKER Unavailable PROBLEMS Type Condition ICD9-CM Code [id number] Code Onset Dates Condition Status SNOMED Code Problem Current moderate episode of major depressive disorder, unspecified whether recurrent F32.1 Active 52765916 Problem Hair loss L65.9 Active [id number] ALLERGIES No Information ENCOUNTERS Encounter Location Date Diagnosis [facility] [id number] [place] [address] 92939 -8179 Nov, Current moderate episode of major depressive disorder, unspecified whether recurrent F32.1 [facility] [id number] [place] [address] 27567- 3054 Nov, Unspecified contraceptive management Z30.9 [facility] [address] 91051- 2937 Nov, [facility] [id number] [place] [address] 79063- 3770 Nov, [facility] [id number] [place] [address] 49837 -6546 Nov, [facility] [id number] [place] [address] 62829 -4413 Nov, [facility] [id number] [place] [address] 52701 -0051 Nov, [facility] [id number] [place] [address] 26983- 9079 Nov, Current moderate episode of major depressive disorder, unspecified whether recurrent F32.1 [facility] [address] [place] [address]- 2200 Oct, [place] [id number] [place] [address] 25308- 8513 Sep, Current moderate episode of major depressive disorder, unspecified whether recurrent F32.1 [place] [id number] [place] [address] 23792- 7779 Sep, Current moderate episode of major depressive disorder, unspecified whether recurrent F32.1 [place] [id number] [place] [address] 85119- 4135 August, Current moderate episode of major depressive disorder, unspecified whether recurrent F32.1 [place] [id number] [place] [address] 26326- 4947 August, Pain of left hand M79.642 and Pain in right hand M79.641 [place] [address] 88932- 3292 August, Pain of left hand M79.642 ; Pain in right hand M79.641 ; Pain in left wrist M25.532 ; Pain in right wrist M25.531 and Bilateral elbow tendonitis M77.8 [place] [id number] [place] [address] 40242- 0869 Jul, Hair loss L65.9 [place] [id number] [place] [address] 31025- 0254 28 May, 2017 Fatigue, unspecified type R53.83 and Family history of diabetes mellitus Z83.3 [place] [id number] [place] [address] 14842- 1049 May, Unspecified contraceptive management Z30.9 [place] [address] 07047- 2282 Apr, Encounter for Depo-Provera contraception Z30.42 [place] [id number] [place] [address] 14940- 6172 Apr, [place] [address] [place] [address] 04217- 3228 Feb, Encounter for Depo-Provera contraception Z30.42 [facility] [id number] [place] [address] 49517 -0614 Jan, Colitis K52.9 [facility] [id number] [place] [address] 84916- 1465 Dec, Sore throat J02.9 and Acute nasopharyngitis J00 [place] [id number] [place] [address] 03331- 2606 Nov, control counseling Z30.09 ; Screening for STD sexually transmitted disease Z11.3 and Encounter for Depo-Provera contraception Z30.42 [place] [id number] [place] [address] 83748- 5294 August, [facility] [id number] [place] [address] 32583 -4509 Jul, Screening breast examination Z12.39 [place] [id number] [place] [address] 61566- 2237 Jul, Encounter for Depo-Provera contraception Z30.42 [place] [id number] [place] [address] 18379- 0405 Apr, Encounter for Depo-Provera contraception Z30.42 [place] [id number] [place] [address] 46458- 2499 Feb, Encounter for Depo-Provera contraception Z30.42 [place] [id number] [place] [address] 45877- 2222 07 Dec, 2015 Pelvic pain R10.2 [place] [id number] [place] [address] 77928- 7507 Oct, Well child check Z00.129 ; Encounter for immunization Z23 ; Dietary counseling Z71.3 and Exercise counseling Z71.89 [place] [id number] [address]- 7597 Oct, Encounter for Depo-Provera contraception Z30.42 [place] [address] [place] [address] 45167- 0518 Jul, Encounter for Depo-Provera contraception Z30.42 [place] [address] [place] [id number] [id number] Jun, Dental examination Z01.20 [facility] [address] [address] Jun, Encounter for dental examination Z01.20 [place] [id number] [place] [address] 06770- 4250 May, Surveillance of contraceptive injection Z30.42 ; Encounter for Depo-Provera contraception Z30.42 and Routine screening for STI (sexually transmitted infection) Z11.3 [place] [id number] [place] [address] 43007- 3220 Feb, Initiation of Depo Provera Z30.8 and Encounter for prescription for depo-Provera Z30.013 [place] [id number] [place] [address] 85270- 6145 Jan, Sore throat J02.9 and Chronic tonsillitis J35.01 [place] [address] [place] [address] 70749- 0809 Oct, Routine child health exam V20.2 ; Dietary counseling and surveillance V65.3 and Exercise counseling V65.41 [place] [address] [address]- 2765 Jul, [place] [id number] [place] [address] 66502- 0861 Jul, [place] [address] [place] [address] 93415- 5020 Apr, [place] [id number] [place] [address] 86098- 8414 Apr, [facility] [place] [facility] [address] [id number] [place] [address]- 0551 Apr, [facility] [place] [facility] [address] [id number] [place] [address]- 4402 Apr, [facility] [place] [facility] [address] [id number] [place] 5607 Apr, [facility] [place] [facility] [address] [id number] [place] [address]- 7210 Apr, [facility] [place] [facility] [address] [id number] [place] [address]- 5122 Mar, [facility] [place] [facility] [address] [id number] [place] [address]- 2371 Mar, [facility] [place] [facility] [address] [id number] [place] [address]- 2522 Mar, [facility] [place] [facility] [address] [id number] [place] [address]- 7666 Mar, [facility] [place] [facility] [address] [id number] [place] [address]- 2539 Mar, [facility] [place] [facility] [address] [id number] [place] [address]- 5169 Mar, [facility] [place] [facility] [address] [id number] [place] [address]- 0804 Mar, [facility] [place] [facility] [address] [id number] [place] [address]- 7861 Mar, [facility] [place] [facility] [address] [id number] [place] [address]- 7897 Mar, [facility] [place] [facility] [address] [id number] [place] [address]- 3724 17 Mar, 2014 [facility] [place] [facility] [address] [id number] [place] 3572 Mar, [facility] [place] [facility] [address] [id number] [place] [address]- 4676 Mar, [facility] [address] [id number] [place] [address]- 8163 Jan, [facility] [place] [facility] [address] [id number] [place] [address]- 7416 Jan, [facility] [address] [id number] [place] [address]- 7006 Jan, [facility] [place] [facility] [address] [id number] [place] [address] 2541 Jan, [facility] [place] [facility] [address] [id number] [place] [address]- 0195 Dec, [facility] [place] [facility] [address] [id number] [place] [address]- 6297 Dec, [facility] [address] [id number] [place] [address]- 9810 August, [facility] [address] [id number] [place] [address]- 1991 August, [facility] [place] [facility] [address] [id number] [place] [address]- 4776 Jun, [facility] [place] [facility] [address] [id number] [place] [address]- 7840 Jun, [facility] [place] [facility] [address] [id number] [place] [address]- 8400 Apr, [facility] [place] [facility] [address] [id number] [place] [address]- 1706 Apr, [facility] [place] [facility] [address] [id number] [place] [address]- 1210 Mar, [facility] [place] [facility] [address] [id number] [place] [address]- 6138 Mar, [facility] [place] [facility] [address] [id number] [place] [address]- 4629 14 Feb, 2013 [facility] [address] [id number] [address] 2546 14 Feb, 2013 [facility] [address] [address]- 2546 Oct, [facility] [address] [address]- 2546 Jul, [facility] [id number] [address] Jul, [facility] [id number] [address] Mar, [facility] [address] [id number] [address] August, IMMUNIZATIONS No Known Immunizations SOCIAL HISTORY Never Assessed REASON FOR VISIT New Refill Request PLAN OF CARE VITAL SIGNS MEDICATIONS Medication Instructions Dosage Frequency Start Date End Date Duration Status Paroxetine HCl 20 mg Orally Once a day 1 tablet in the morning 24h August, 30 day(s) Active RESULTS No Results PROCEDURES No Known procedures INSTRUCTIONS MEDICATIONS ADMINISTERED No Known Medications MEDICAL (GENERAL) HISTORY Type Description Date Medical History Depressive disorder, not elsewhere classified Surgical History myringotomy with ventilating tube Surgical History umbilical hernia surgery 2010
--- OUTSIDE RECORDS SUMMARY | 2018-02-19 18:31 | XMS REPORT ---
Author Author ELIZA BARKER Organization [facility] Address [address] [place] [address] Care Team Providers Care Magnetic Prospector Name Role Phone ELIZA BARKER Unavailable PROBLEMS Type Condition ICD9-CM Code AJP18-WE Code Onset Dates Condition Status SNOMED Code Problem Current moderate episode of major depressive disorder, unspecified whether recurrent F32.1 Active 11266178 Problem Hair loss L65.9 Active [id number] ALLERGIES No Information ENCOUNTERS Encounter Location Date Diagnosis [facility] [id number] [place] [address] 35077 -0413 Nov, Current moderate episode of major depressive disorder, unspecified whether recurrent F32.1 [facility] [id number] [place] [address] 98077- 0306 Nov, Unspecified contraceptive management Z30.9 [facility] [address] 22201- 6760 Nov, [facility] [id number] [place] [address] 59000- 9543 Nov, [facility] [id number] [place] [address] 61144 -1642 Nov, [facility] [id number] [place] [address] 81894 -1410 Nov, [facility] [id number] [place] [address] 93431 -4535 Nov, [facility] [id number] [place] [address] 27739- 6743 Nov, Current moderate episode of major depressive disorder, unspecified whether recurrent F32.1 [facility] [address] [place] [address]- 3598 Oct, [place] [id number] [place] [address] 43268- 0865 Sep, Current moderate episode of major depressive disorder, unspecified whether recurrent F32.1 [place] [id number] [place] [address] 49100- 7855 Sep, Current moderate episode of major depressive disorder, unspecified whether recurrent F32.1 [place] [id number] [place] [address] 01895- 9432 August, Current moderate episode of major depressive disorder, unspecified whether recurrent F32.1 [place] [id number] [place] [address] 16522- 0179 August, Pain of left hand M79.642 and Pain in right hand M79.641 [place] [address] 86345- 3746 August, Pain of left hand M79.642 ; Pain in right hand M79.641 ; Pain in left wrist M25.532 ; Pain in right wrist M25.531 and Bilateral elbow tendonitis M77.8 [place] [id number] [place] [address] 28014- 4812 Jul, Hair loss L65.9 [place] [id number] [place] [address] 18118- 2553 28 May, 2017 Fatigue, unspecified type R53.83 and Family history of diabetes mellitus Z83.3 [place] [id number] [place] [address] 39421- 0519 May, Unspecified contraceptive management Z30.9 [place] [address] 62821- 9902 Apr, Encounter for Depo-Provera contraception Z30.42 [place] [id number] [place] [address] 81670- 7953 Apr, [place] [id number] [place] [address] 92874- 9807 Feb, Encounter for Depo-Provera contraception Z30.42 [facility] [id number] [place] [address] 26306 -4824 Jan, Colitis K52.9 [facility] [id number] [place] [address] 03594- 0178 Dec, Sore throat J02.9 and Acute nasopharyngitis J00 [place] [id number] [place] [address] 35616- 7673 Nov, control counseling Z30.09 ; Screening for STD sexually transmitted disease Z11.3 and Encounter for Depo-Provera contraception Z30.42 [place] [id number] [place] [address] 49501- 6262 August, [facility] [id number] [place] [address] 46991 -9025 Jul, Screening breast examination Z12.39 [place] [id number] [place] [address] 23233- 2556 Jul, Encounter for Depo-Provera contraception Z30.42 [place] [id number] [place] [address] 29829- 8079 Apr, Encounter for Depo-Provera contraception Z30.42 [place] [id number] [place] [address] 36455- 5058 Feb, Encounter for Depo-Provera contraception Z30.42 [place] [id number] [place] [address] 84986- 9327 07 Dec, 2015 Pelvic pain R10.2 [place] [id number] [place] [address] 58635- 9160 Oct, Well child check Z00.129 ; Encounter for immunization Z23 ; Dietary counseling Z71.3 and Exercise counseling Z71.89 [place] [id number] [address] 4150 Oct, Encounter for Depo-Provera contraception Z30.42 [place] [address] [place] [address] 72089- 7269 Jul, Encounter for Depo-Provera contraception Z30.42 [place] [address] [place] [id number] [id number] Jun, Dental examination Z01.20 [facility] [address] [address] Jun, Encounter for dental examination Z01.20 [place] [id number] [place] [address] 37123- 0820 May, Surveillance of contraceptive injection Z30.42 ; Encounter for Depo-Provera contraception Z30.42 and Routine screening for STI (sexually transmitted infection) Z11.3 [place] [id number] [place] [address] 73678- 6535 Feb, Initiation of Depo Provera Z30.8 and Encounter for prescription for depo-Provera Z30.013 [place] [id number] [place] [address] 99658- 0994 Jan, Sore throat J02.9 and Chronic tonsillitis J35.01 [place] [address] [place] [address] 11283- 7028 Oct, Routine child health exam V20.2 ; Dietary counseling and surveillance V65.3 and Exercise counseling V65.41 [place] [address] [address]- 8091 Jul, [place] [id number] [place] [address] 30955- 9979 Jul, [place] [address] [place] [address] 86082- 9184 Apr, [place] [id number] [place] [address] 51432- 9476 Apr, [facility] [place] [facility] [address] [id number] [place] [address]- 6661 Apr, [facility] [place] [facility] [address] [id number] [place] [address]- 3500 Apr, [facility] [place] [facility] [address] [id number] [place] 6164 Apr, [facility] [place] [facility] [address] [id number] [place] [address]- 2204 Apr, [facility] [place] [facility] [address] [id number] [place] [address]- 8875 Mar, [facility] [place] [facility] [address] [id number] [place] [address]- 5220 Mar, [facility] [place] [facility] [address] [id number] [place] [address]- 7613 Mar, [facility] [place] [facility] [address] [id number] [place] [address]- 4698 Mar, [facility] [place] [facility] [address] [id number] [place] [address]- 3276 Mar, [facility] [place] [facility] [address] [id number] [place] [address]- 7876 Mar, [facility] [place] [facility] [address] [id number] [place] [address]- 1121 Mar, [facility] [place] [facility] [address] [id number] [place] [address]- 4498 Mar, [facility] [place] [facility] [address] [id number] [place] [address]- 9543 Mar, [facility] [place] [facility] [address] [id number] [place] [address]- 2259 17 Mar, 2014 [facility] [place] [facility] [address] [id number] [place] 7210 Mar, [facility] [place] [facility] [address] [id number] [place] [address]- 5092 Mar, [facility] [address] [id number] [place] [address]- 9293 Jan, [facility] [place] [facility] [address] [id number] [place] [address]- 7906 Jan, [facility] [address] [id number] [place] [address]- 2096 Jan, [facility] [place] [facility] [address] [id number] [place] [address] 2549 Jan, [facility] [place] [facility] [address] [id number] [place] [address]- 2981 Dec, [facility] [place] [facility] [address] [id number] [place] [address]- 9545 Dec, [facility] [address] [id number] [place] [address]- 8912 August, [facility] [address] [id number] [place] [address]- 6451 August, [facility] [place] [facility] [address] [id number] [place] [address]- 7262 Jun, [facility] [place] [facility] [address] [id number] [place] [address]- 1091 Jun, [facility] [place] [facility] [address] [id number] [place] [address]- 3873 Apr, [facility] [place] [facility] [address] [id number] [place] [address]- 1042 Apr, [facility] [place] [facility] [address] [id number] [place] [address]- 2703 Mar, [facility] [place] [facility] [address] [id number] [place] [address]- 8429 Mar, [facility] [place] [facility] [address] [id number] [place] [address]- 8218 14 Feb, 2013 [facility] [id number] [address]- 5926 14 Feb, 2013 [facility] [address], [place] [address] 2546 Oct, [facility] [address], [place] [address]- 3634 Jul, [facility] [address], [place] [address] 2546 Jul, [facility] [address] [address]- 1978 Mar, [facility] [id number], [place] [address]- 5341 August, IMMUNIZATIONS No Known Immunizations SOCIAL HISTORY [...]
--- OUTSIDE RECORDS SUMMARY | 2018-02-19 18:31 | XMS REPORT ---
Author Author DAVE LUTZ [facility] Address [address] [place] [address] Care Team Providers Care Battery Charger Tester Name Role Phone DAVE LUTZ Unavailable PROBLEMS Type Condition ICD9-CM Code RON30-HS Code Onset Dates Condition Status SNOMED Code Problem Current moderate episode of major depressive disorder, unspecified whether recurrent F32.1 Active [id number] Problem Hair loss L65.9 Active [id number] ALLERGIES No Information ENCOUNTERS Encounter Location Date Diagnosis [facility] [id number] [place] [address] 31439 -0507 Nov, Current moderate episode of major depressive disorder, unspecified whether recurrent F32.1 [facility] [id number] [place] [address] 41620- 4379 Nov, Unspecified contraceptive management Z30.9 [facility] [address] 91913- 3778 Nov, [facility] [id number] [place] [address] 13911- 5682 Nov, [facility] [id number] [place] [address] 97723 -9793 Nov, [facility] [id number] [place] [address] 58888 -2920 Nov, [facility] [id number] [place] [address] 33380 -5286 Nov, [facility] [id number] [place] [address] 69837- 1040 Nov, Current moderate episode of major depressive disorder, unspecified whether recurrent F32.1 [facility] [address] [place] [address]- 1402 Oct, [place] [id number] [place] [address] 57219- 3854 Sep, Current moderate episode of major depressive disorder, unspecified whether recurrent F32.1 [place] [id number] [place] [address] 15110- 9387 Sep, Current moderate episode of major depressive disorder, unspecified whether recurrent F32.1 [place] [id number] [place] [address] 32188- 0462 August, Current moderate episode of major depressive disorder, unspecified whether recurrent F32.1 [place] [id number] [place] [address] 27457- 6723 August, Pain of left hand M79.642 and Pain in right hand M79.641 [place] [id number] [place] [address] 62109- 2974 August, Pain of left hand M79.642 ; Pain in right hand M79.641 ; Pain in left wrist M25.532 ; Pain in right wrist M25.531 and Bilateral elbow tendonitis M77.8 [place] [id number] [place] [address] 84815- 0376 Jul, Hair loss L65.9 [place] [id number] [place] [address] 58807- 4955 May, Fatigue, unspecified type R53.83 and Family history of diabetes mellitus Z83.3 [place] [id number] [place] [address] 00524- 4190 May, Unspecified contraceptive management Z30.9 [place] [id number] [place] [address] 24202- 0507 Apr, Encounter for Depo-Provera contraception Z30.42 [place] [id number] [place] [address] 64803- 9167 Apr, [facility] [id number] [place] [address] 79843- 3016 Feb, Encounter for Depo-Provera contraception Z30.42 [facility] [id number] [place] [address] 00233 -1792 Jan, Colitis K52.9 [place] [id number] [place] [address] 54654- 1180 Dec, Sore throat J02.9 and Acute nasopharyngitis J00 [place] [id number] [place] [address] 52587- 2399 Nov, control counseling Z30.09 ; Screening for STD sexually transmitted disease Z11.3 and Encounter for Depo-Provera contraception Z30.42 [place] [id number] [place] [address] 56007- 6394 August, [facility] [id number] [place] [address] 14224 -0485 Jul, Screening breast examination Z12.39 [place] [address] 50085- 1906 Jul, Encounter for Depo-Provera contraception Z30.42 [place] [id number] [place] [address] 92636- 8959 Apr, Encounter for Depo-Provera contraception Z30.42 [place] [id number] [place] [address] 30512- 4749 Feb, Encounter for Depo-Provera contraception Z30.42 [place] [id number] [place] [address] 16425- 1310 07 Dec, 2015 Pelvic pain R10.2 [place] [id number] [place] [address] 44152- 0797 Oct, Well child check Z00.129 ; Encounter for immunization Z23 ; Dietary counseling Z71.3 and Exercise counseling Z71.89 [place] [address] [address]- 1921 Oct, Encounter for Depo-Provera contraception Z30.42 [facility] [address], [place] [address]- 4062 Jul, Encounter for Depo-Provera contraception Z30.[address] [id number] [id number] Jun, Dental examination Z01.20 [facility] [address] [place] [address] [id number] Jun, Encounter for dental examination Z01.20 [place] [id number] [place] [address] 79155- 7987 May, Surveillance of contraceptive injection Z30.42 ; Encounter for Depo-Provera contraception Z30.42 and Routine screening for STI (sexually transmitted infection) Z11.3 [place] [address] [place] [address] 27495- 9077 Feb, Initiation of Depo Provera Z30.8 and Encounter for prescription for depo-Provera Z30.013 [place] [id number] [place] [address] 92123- 1302 Jan, Sore throat J02.9 and Chronic tonsillitis J35.01 [place] [id number] [place] [address] 41163- 4207 Oct, Routine child health exam V20.2 ; Dietary counseling and surveillance V65.3 and Exercise counseling V65.41 [place] [address], [place] [address]- 7056 Jul, [place] [id number] [place] [address] 06814- 5782 Jul, [place] [id number] [place] [address] 97101- 3268 Apr, [place] [id number] [place] [address] 66061- 4080 Apr, [facility] [place] [facility] [address] [id number] [place] [address]- 9575 Apr, [facility] [place] [facility] [address] [id number] [place] 9684 Apr, [facility] [place] [facility] [address] [id number] [place] [address]- 8667 Apr, [facility] [place] [facility] [address] [id number] [place] [address]- 2226 Apr, [facility] [place] [facility] [address] [id number] [place] [address]- 8585 Mar, [facility] [place] [facility] [address] [id number] [place] [address]- 4549 Mar, [facility] [place] [facility] [address] [id number] [place] [address]- 6058 Mar, [facility] [place] [facility] [address] [id number] [place] [address]- 7594 Mar, [facility] [place] [facility] [address] [id number] [place] [address]- 2455 Mar, [facility] [place] [facility] [address] [id number] [place] [address]- 6963 Mar, [facility] [place] [facility] [address] [id number] [place] [address]- 6811 Mar, [facility] [place] [facility] [address] [id number] [place] [address]- 6178 Mar, [facility] [place] [facility] [address] [id number] [place] [address]- 9017 Mar, [facility] [place] [facility] [address] [id number] [place] [address]- 1885 Mar, [facility] [place] [facility] [address] [id number] [place] 9858 Mar, [facility] [place] [facility] [address] [id number] [place] [address]- 2546 Mar, [facility] [place] [facility] [address] [id number] [place] [address]- 0405 Jan, [facility] [place] [facility] [address] [id number] [place] [address]- 2546 Jan, [facility] [address] [id number] [place] [address]- 2546 Jan, [facility] [place] [facility] [address] [id number] [place] [address]- 2546 Jan, [facility] [address] [id number] [place] [address]- 4965 Dec, [facility] [place] [facility] [address] [id number] [place] [address]- 8436 Dec, [facility] [place] [facility] [address] [id number] [place] [address]- 3176 August, [facility] [place] [facility] [address] [id number] [place] [address]- 5662 August, [facility] [place] [facility] [address] [id number] [place] [address]- 7785 Jun, [facility] [place] [facility] [address] [id number] [place] [address]- 0211 Jun, [facility] [place] [facility] [address] [id number] [place] [address]- 2166 Apr, [facility] [place] [facility] [address] [id number] [place] [address]- 2546 Apr, [facility] [place] [facility] [address] [id number] [place] [address]- 2436 Mar, [facility] [place] [facility] [address] [id number] [place] [address]- 2546 Mar, [facility] [place] [facility] [address] [id number] [place] [address]- 7717 Feb, [facility] [address] [facility] [id number] [address]- 1936 Feb, [facility] [address], [place] [address]- 2546 Oct, [facility] [id number] [address]- 3906 Jul, [facility] [address], [place] [address]- 2546 Jul, [facility] [id number], [place] [address]- 3810 Mar, [facility] [id number], [place] [address]- 2436 August, IMMUNIZATIONS No Known Immunizations SOCIAL HISTORY Never Assessed REASON FOR VISIT New Refill Request PLAN OF CARE VITAL SIGNS MEDICATIONS Medication Instructions Dosage Frequency Start Date End Date Duration Status Ortho Tri-Cyclen (28) 0.18/0.215/0.25 MG-35 MCG Orally Once a day 1 tablet 24h May, 28 day(s) Active RESULTS No Results PROCEDURES No Known procedures INSTRUCTIONS MEDICATIONS ADMINISTERED No Known Medications MEDICAL (GENERAL) HISTORY Type Description Date Medical History Depressive disorder, not elsewhere classified Surgical History myringotomy with ventilating tube Surgical History umbilical hernia surgery 2010
--- OUTSIDE RECORDS SUMMARY | 2018-02-19 18:31 | XMS REPORT ---
Author Author ELIZA BARKER Organization [facility] Address [address] [place] [address] Care Team Providers Care Olive Knocker Name Role Phone ELIZA BARKER Unavailable PROBLEMS Type Condition ICD9-CM Code DKO32-VA Code Onset Dates Condition Status SNOMED Code Problem Current moderate episode of major depressive disorder, unspecified whether recurrent F32.1 Active 17089238 Problem Hair loss L65.9 Active [id number] ALLERGIES No Information ENCOUNTERS Encounter Location Date Diagnosis [facility] [id number] [place] [address] 63382 -1025 Nov, Current moderate episode of major depressive disorder, unspecified whether recurrent F32.1 [facility] [id number] [place] [address] 17260- 8644 Nov, Unspecified contraceptive management Z30.9 [facility] [address] 41792- 2187 Nov, [facility] [id number] [place] [address] 47144- 4885 Nov, [facility] [id number] [place] [address] 49254 -4422 Nov, [facility] [id number] [place] [address] 84609 -3764 Nov, [facility] [id number] [place] [address] 08808 -6695 Nov, [facility] [id number] [place] [address] 02743- 5529 Nov, Current moderate episode of major depressive disorder, unspecified whether recurrent F32.1 [facility] [address] [place] [address]- 4629 Oct, [place] [id number] [place] [address] 37685- 8810 Sep, Current moderate episode of major depressive disorder, unspecified whether recurrent F32.1 [place] [id number] [place] [address] 18670- 4204 Sep, Current moderate episode of major depressive disorder, unspecified whether recurrent F32.1 [place] [id number] [place] [address] 54010- 3853 August, Current moderate episode of major depressive disorder, unspecified whether recurrent F32.1 [place] [id number] [place] [address] 74592- 0453 August, Pain of left hand M79.642 and Pain in right hand M79.641 [place] [address] 28906- 4070 August, Pain of left hand M79.642 ; Pain in right hand M79.641 ; Pain in left wrist M25.532 ; Pain in right wrist M25.531 and Bilateral elbow tendonitis M77.8 [place] [id number] [place] [address] 89661- 4254 Jul, Hair loss L65.9 [place] [id number] [place] [address] 06232- 4140 28 May, 2017 Fatigue, unspecified type R53.83 and Family history of diabetes mellitus Z83.3 [place] [id number] [place] [address] 81905- 7716 May, Unspecified contraceptive management Z30.9 [place] [address] 47423- 1666 Apr, Encounter for Depo-Provera contraception Z30.42 [place] [id number] [place] [address] 46761- 4520 Apr, [place] [id number] [place] [address] 13860- 8466 Feb, Encounter for Depo-Provera contraception Z30.42 [facility] [id number] [place] [address] 58109 -4391 Jan, Colitis K52.9 [facility] [id number] [place] [address] 18794- 0800 Dec, Sore throat J02.9 and Acute nasopharyngitis J00 [place] [id number] [place] [address] 86567- 6954 Nov, control counseling Z30.09 ; Screening for STD sexually transmitted disease Z11.3 and Encounter for Depo-Provera contraception Z30.42 [place] [id number] [place] [address] 05946- 1435 August, [facility] [id number] [place] [address] 21761 -3520 Jul, Screening breast examination Z12.39 [place] [id number] [place] [address] 93718- 6238 Jul, Encounter for Depo-Provera contraception Z30.42 [place] [id number] [place] [address] 18270- 4164 Apr, Encounter for Depo-Provera contraception Z30.42 [place] [id number] [place] [address] 72546- 8291 Feb, Encounter for Depo-Provera contraception Z30.42 [place] [id number] [place] [address] 82210- 1880 07 Dec, 2015 Pelvic pain R10.2 [place] [id number] [place] [address] 06771- 9690 Oct, Well child check Z00.129 ; Encounter for immunization Z23 ; Dietary counseling Z71.3 and Exercise counseling Z71.89 [place] [id number] [address]- 8690 Oct, Encounter for Depo-Provera contraception Z30.42 [place] [address] [place] [address] 92757- 6721 Jul, Encounter for Depo-Provera contraception Z30.42 [place] [id number] [id number] Jun, Dental examination Z01.20 [facility] [address] [address] Jun, Encounter for dental examination Z01.20 [place] [id number] [place] [address] 06627- 5009 May, Surveillance of contraceptive injection Z30.42 ; Encounter for Depo-Provera contraception Z30.42 and Routine screening for STI (sexually transmitted infection) Z11.3 [place] [id number] [place] [address] 93679- 4080 Feb, Initiation of Depo Provera Z30.8 and Encounter for prescription for depo-Provera Z30.013 [place] [id number] [place] [address] 58278- 9692 Jan, Sore throat J02.9 and Chronic tonsillitis J35.01 [place] [address] [place] [address] 86444- 8837 Oct, Routine child health exam V20.2 ; Dietary counseling and surveillance V65.3 and Exercise counseling V65.41 [place] [address] [address]- 3030 Jul, [place] [id number] [place] [address] 37445- 9199 Jul, [place] [id number] [place] [address] 07328- 8453 Apr, [place] [id number] [place] [address] 52933- 2005 Apr, [facility] [place] [facility] [address] [id number] [place] [address]- 4545 Apr, [facility] [place] [facility] [address] [id number] [place] [address]- 2650 Apr, [facility] [place] [facility] [address] [id number] [place] 0679 Apr, [facility] [place] [facility] [address] [id number] [place] [address]- 1066 Apr, [facility] [place] [facility] [address] [id number] [place] [address]- 4587 Mar, [facility] [place] [facility] [address] [id number] [place] [address]- 5253 Mar, [facility] [place] [facility] [address] [id number] [place] [address]- 4900 Mar, [facility] [place] [facility] [address] [id number] [place] [address]- 2135 Mar, [facility] [place] [facility] [address] [id number] [place] [address]- 7263 Mar, [facility] [place] [facility] [address] [id number] [place] [address]- 2890 Mar, [facility] [place] [facility] [address] [id number] [place] [address]- 5955 Mar, [facility] [place] [facility] [address] [id number] [place] [address]- 9292 Mar, [facility] [place] [facility] [address] [id number] [place] [address]- 5427 Mar, [facility] [place] [facility] [address] [id number] [place] [address]- 5537 17 Mar, 2014 [facility] [place] [facility] [address] [id number] [place] 0733 Mar, [facility] [place] [facility] [address] [id number] [place] [address]- 9913 Mar, [facility] [address] [id number] [place] [address]- 6822 Jan, [facility] [place] [facility] [address] [id number] [place] [address]- 4156 Jan, [facility] [address] [id number] [place] [address]- 7746 Jan, [facility] [place] [facility] [address] [id number] [place] [address] 2542 Jan, [facility] [place] [facility] [address] [id number] [place] [address]- 9604 Dec, [facility] [place] [facility] [address] [id number] [place] [address]- 2088 Dec, [facility] [address] [id number] [place] [address]- 8546 August, [facility] [address] [id number] [place] [address]- 9439 August, [facility] [place] [facility] [address] [id number] [place] [address]- 8303 Jun, [facility] [place] [facility] [address] [id number] [place] [address]- 1890 Jun, [facility] [place] [facility] [address] [id number] [place] [address]- 3600 Apr, [facility] [place] [facility] [address] [id number] [place] [address]- 8679 Apr, [facility] [place] [facility] [address] [id number] [place] [address]- 1408 Mar, [facility] [place] [facility] [address] [id number] [place] [address]- 9496 Mar, [facility] [place] [facility] [address] [id number] [place] [address]- 9210 14 Feb, 2013 [facility] [id number] [address]- 5000 14 Feb, 2013 [facility] [address], [place] [address] 2546 Oct, [facility] [address], [place] [address]- 3571 Jul, [facility] [address], [place] [address] 2546 Jul, [facility] [address], [place] [address]- 0375 Mar, [facility] [address], [place] [address]- 1208 August, IMMUNIZATIONS No Known Immunizations SOCIAL HISTORY Never Assessed REASON FOR VISIT Update Demographics - Additional Info PLAN OF CARE VITAL SIGNS MEDICATIONS No Known Medications RESULTS No Results PROCEDURES No Known procedures INSTRUCTIONS MEDICATIONS ADMINISTERED No Known Medications MEDICAL (GENERAL) HISTORY Type Description Date Medical History Depressive disorder, not elsewhere classified Surgical History myringotomy with ventilating tube Surgical History umbilical hernia surgery 2010
--- OUTSIDE RECORDS SUMMARY | 2018-02-19 18:32 | XMS REPORT ---
Author Author ELIZA BARKER Organization [facility] Address [address] [place] [address] Care Team Providers Care Chief Client Officer Name Role Phone ELIZA BARKER Unavailable PROBLEMS Type Condition ICD9-CM Code JMP74-OQ Code Onset Dates Condition Status SNOMED Code Problem Current moderate episode of major depressive disorder, unspecified whether recurrent F32.1 Active 05246846 Problem Hair loss L65.9 Active [id number] ALLERGIES No Information ENCOUNTERS Encounter Location Date Diagnosis [facility] [id number] [place] [address] 83078 -8658 Nov, Current moderate episode of major depressive disorder, unspecified whether recurrent F32.1 [facility] [id number] [place] [address] 59352- 7460 Nov, Unspecified contraceptive management Z30.9 [facility] [address] 39716- 9921 Nov, [facility] [id number] [place] [address] 41234- 4264 Nov, [facility] [id number] [place] [address] 42520 -0830 Nov, [facility] [id number] [place] [address] 35201 -9197 Nov, [facility] [id number] [place] [address] 00895 -8445 Nov, [facility] [id number] [place] [address] 19874- 9134 Nov, Current moderate episode of major depressive disorder, unspecified whether recurrent F32.1 [facility] [address] [place] [address]- 3377 Oct, [place] [id number] [place] [address] 71309- 9679 Sep, Current moderate episode of major depressive disorder, unspecified whether recurrent F32.1 [place] [id number] [place] [address] 66457- 4553 Sep, Current moderate episode of major depressive disorder, unspecified whether recurrent F32.1 [place] [id number] [place] [address] 55220- 6736 August, Current moderate episode of major depressive disorder, unspecified whether recurrent F32.1 [place] [id number] [place] [address] 16712- 1665 August, Pain of left hand M79.642 and Pain in right hand M79.641 [place] [address] 96618- 8006 August, Pain of left hand M79.642 ; Pain in right hand M79.641 ; Pain in left wrist M25.532 ; Pain in right wrist M25.531 and Bilateral elbow tendonitis M77.8 [place] [id number] [place] [address] 64689- 6299 Jul, Hair loss L65.9 [place] [id number] [place] [address] 00900- 0974 28 May, 2017 Fatigue, unspecified type R53.83 and Family history of diabetes mellitus Z83.3 [place] [id number] [place] [address] 02353- 1701 May, Unspecified contraceptive management Z30.9 [place] [address] 87722- 0962 Apr, Encounter for Depo-Provera contraception Z30.42 [place] [id number] [place] [address] 10901- 0604 Apr, [place] [id number] [place] [address] 25037- 7531 Feb, Encounter for Depo-Provera contraception Z30.42 [facility] [id number] [place] [address] 08730 -0321 Jan, Colitis K52.9 [facility] [id number] [place] [address] 77667- 3585 Dec, Sore throat J02.9 and Acute nasopharyngitis J00 [place] [id number] [place] [address] 15067- 8950 Nov, control counseling Z30.09 ; Screening for STD sexually transmitted disease Z11.3 and Encounter for Depo-Provera contraception Z30.42 [place] [id number] [place] [address] 15855- 0267 August, [facility] [id number] [place] [address] 94719 -0061 Jul, Screening breast examination Z12.39 [place] [id number] [place] [address] 96442- 6740 Jul, Encounter for Depo-Provera contraception Z30.42 [place] [id number] [place] [address] 61873- 4320 Apr, Encounter for Depo-Provera contraception Z30.42 [place] [id number] [place] [address] 73343- 1421 Feb, Encounter for Depo-Provera contraception Z30.42 [place] [id number] [place] [address] 78315- 3667 07 Dec, 2015 Pelvic pain R10.2 [place] [id number] [place] [address] 69447- 5515 Oct, Well child check Z00.129 ; Encounter for immunization Z23 ; Dietary counseling Z71.3 and Exercise counseling Z71.89 [place] [id number] [address]- 6269 Oct, Encounter for Depo-Provera contraception Z30.42 [place] [address] [place] [address] 38279- 4788 Jul, Encounter for Depo-Provera contraception Z30.42 [place] [address] [id number] [id number] Jun, Dental examination Z01.20 [facility] [address] [address] Jun, Encounter for dental examination Z01.20 [place] [id number] [place] [address] 04657- 8982 May, Surveillance of contraceptive injection Z30.42 ; Encounter for Depo-Provera contraception Z30.42 and Routine screening for STI (sexually transmitted infection) Z11.3 [place] [id number] [place] [address] 78779- 3796 Feb, Initiation of Depo Provera Z30.8 and Encounter for prescription for depo-Provera Z30.013 [place] [id number] [place] [address] 88422- 5472 Jan, Sore throat J02.9 and Chronic tonsillitis J35.01 [place] [address] [place] [address] 93842- 3688 Oct, Routine child health exam V20.2 ; Dietary counseling and surveillance V65.3 and Exercise counseling V65.41 [place] [address] [address]- 7062 Jul, [place] [id number] [place] [address] 50507- 3995 Jul, [place] [id number] [place] [address] 38646- 1808 Apr, [place] [id number] [place] [address] 56156- 7078 Apr, [facility] [place] [facility] [address] [id number] [place] [address]- 8676 Apr, [facility] [place] [facility] [address] [id number] [place] [address]- 1462 Apr, [facility] [place] [facility] [address] [id number] [place] 0165 Apr, [facility] [place] [facility] [address] [id number] [place] [address]- 4316 Apr, [facility] [place] [facility] [address] [id number] [place] [address]- 3300 Mar, [facility] [place] [facility] [address] [id number] [place] [address]- 1397 Mar, [facility] [place] [facility] [address] [id number] [place] [address]- 7305 Mar, [facility] [place] [facility] [address] [id number] [place] [address]- 6290 Mar, [facility] [place] [facility] [address] [id number] [place] [address]- 0357 Mar, [facility] [place] [facility] [address] [id number] [place] [address]- 9468 Mar, [facility] [place] [facility] [address] [id number] [place] [address]- 9268 Mar, [facility] [place] [facility] [address] [id number] [place] [address]- 4183 Mar, [facility] [place] [facility] [address] [id number] [place] [address]- 5669 Mar, [facility] [place] [facility] [address] [id number] [place] [address]- 0949 17 Mar, 2014 [facility] [place] [facility] [address] [id number] [place] 6478 Mar, [facility] [place] [facility] [address] [id number] [place] [address]- 8654 Mar, [facility] [address] [id number] [place] [address]- 3736 Jan, [facility] [place] [facility] [address] [id number] [place] [address]- 6656 Jan, [facility] [address] [id number] [place] [address]- 0116 Jan, [facility] [place] [facility] [address] [id number] [place] [address] 2544 Jan, [facility] [place] [facility] [address] [id number] [place] [address]- 1546 Dec, [facility] [place] [facility] [address] [id number] [place] [address]- 8588 Dec, [facility] [address] [id number] [place] [address]- 2431 August, [facility] [address] [id number] [place] [address]- 6141 August, [facility] [place] [facility] [address] [id number] [place] [address]- 9447 Jun, [facility] [place] [facility] [address] [id number] [place] [address]- 0137 Jun, [facility] [place] [facility] [address] [id number] [place] [address]- 1318 Apr, [facility] [place] [facility] [address] [id number] [place] [address]- 7828 Apr, [facility] [place] [facility] [address] [id number] [place] [address]- 2557 Mar, [facility] [place] [facility] [address] [id number] [place] [address]- 8586 Mar, [facility] [place] [facility] [address] [id number] [place] [address]- 4632 14 Feb, 2013 [facility] [id number] 4223 14 Feb, 2013 [facility] [address] [address] 2546 Oct, [facility] [address] [address]- 3020 Jul, [facility] [address] [address] 2546 Jul, [facility] [address] [address]- 8336 Mar, [facility] [id number] [address] 1438 August, IMMUNIZATIONS No Known Immunizations SOCIAL HISTORY Never Assessed REASON FOR VISIT Requests return call PLAN OF CARE VITAL SIGNS MEDICATIONS No Known Medications RESULTS No Results PROCEDURES No Known procedures INSTRUCTIONS MEDICATIONS ADMINISTERED No Known Medications MEDICAL (GENERAL) HISTORY Type Description Date Medical History Depressive disorder, not elsewhere classified Surgical History myringotomy with ventilating tube Surgical History umbilical hernia surgery 2010
--- OUTSIDE RECORDS SUMMARY | 2018-02-19 18:32 | XMS REPORT ---
Author Author DARIUS BOYCE Organization [facility] Address Unknown Care Team Providers Care Neuropsychology Director Name Role Phone AUSTENDARIUS Unavailable PROBLEMS Type Condition ICD9-CM Code ZZT98-HG Code Onset Dates Condition Status SNOMED Code Problem Current moderate episode of major depressive disorder, unspecified whether recurrent F32.1 Active 41765767 Problem Hair loss L65.9 Active [id number] ALLERGIES No Information ENCOUNTERS Encounter Location Date Diagnosis [facility] [address] [address]99 Nov, Current moderate episode of major depressive disorder, unspecified whether recurrent F32.1 [facility] [id number] [place] [address] 92541- 2374 Nov, [facility] [id number] [place] [address] 30197- 2107 Nov, [facility] [address] 29053- 6168 Nov, Unspecified contraceptive management Z30.9 [facility] [id number] [place] [address] 67560 -9225 Nov, [facility] [id number] [place] [address] 67251 -8083 Nov, [facility] [id number] [place] [address] 42581 -6002 Nov, [facility] [address] 77297- 1166 Nov, Current moderate episode of major depressive disorder, unspecified whether recurrent F32.1 [facility] [address] 15829- 7270 Oct, [place] [address] [place] [address] 65879- 5072 Sep, Current moderate episode of major depressive disorder, unspecified whether recurrent F32.1 [place] [address] [place] [address] 56282- 2076 Sep, Current moderate episode of major depressive disorder, unspecified whether recurrent F32.1 [place] [id number] [place] [address] 23330- 9560 August, Current moderate episode of major depressive disorder, unspecified whether recurrent F32.1 [place] [id number] [place] [address] 81354- 8386 August, Pain of left hand M79.642 and Pain in right hand M79.641 [place] [id number] [place] [address] 46930- 8874 August, Pain of left hand M79.642 ; Pain in right hand M79.641 ; Pain in left wrist M25.532 ; Pain in right wrist M25.531 and Bilateral elbow tendonitis M77.8 [place] [id number] [place] [address] 17246- 0932 Jul, Hair loss L65.9 [place] [id number] [place] [address] 42296- 0797 28 May, 2017 Fatigue, unspecified type R53.83 and Family history of diabetes mellitus Z83.3 [place] [address] [place] [address] 99322- 7887 May, Unspecified contraceptive management Z30.9 [place] [id number] [place] [address] 68438- 7263 Apr, Encounter for Depo-Provera contraception Z30.42 [place] [id number] [place] [address] 36062- 5978 Apr, [place] [address] [place] [address]- 4319 Feb, Encounter for Depo-Provera contraception Z30.42 [facility] [address] 40771 -9494 Jan, Colitis K52.9 [facility] [id number] [place] [address] 02094- 3975 Dec, Sore throat J02.9 and Acute nasopharyngitis J00 [place] [address] 93303- 4043 Nov, control counseling Z30.09 ; Screening for STD sexually transmitted disease Z11.3 and Encounter for Depo-Provera contraception Z30.42 [place] [id number] [place] [address] 40722- 1879 August, [facility] [address] 08467 -8953 Jul, Screening breast examination Z12.39 [place] [address] 71319- 1740 Jul, Encounter for Depo-Provera contraception Z30.42 [place] [address] 23194- 3029 Apr, Encounter for Depo-Provera contraception Z30.42 [place] [address] 26425- 5365 Feb, Encounter for Depo-Provera contraception Z30.42 [place] [address] 54558- 7362 07 Dec, 2015 Pelvic pain R10.2 [place] [address] 46663- 0678 Oct, Well child check Z00.129 ; Encounter for immunization Z23 ; Dietary counseling Z71.3 and Exercise counseling Z71.89 [place] [address] 35591- 3845 Oct, Encounter for Depo-Provera contraception Z30.42 [facility] [address] [address]- 7729 Jul, Encounter for Depo-Provera contraception Z30.42 [facility] [id number] [id number] Jun, Dental examination Z01.20 [facility] [address] [id number] [id number] Jun, Encounter for dental examination Z01.20 [facility] [address] [place] [address] 83472- 0772 May, Surveillance of contraceptive injection Z30.42 ; Encounter for Depo-Provera contraception Z30.42 and Routine screening for STI (sexually transmitted infection) Z11.3 [place] [address] [place] [address] 81028- 4885 Feb, Initiation of Depo Provera Z30.8 and Encounter for prescription for depo-Provera Z30.013 [facility] [address] [place] [address] 45945- 1597 Jan, Sore throat J02.9 and Chronic tonsillitis J35.01 [place] [address] [address]- 7072 Oct, Routine child health exam V20.2 ; Dietary counseling and surveillance V65.3 and Exercise counseling V65.41 [facility] [address] [address]- 8026 Jul, [facility] [address] [place] [address] 79792- 6961 Jul, [facility] [id number] [place] [address] 76832- 7671 Apr, [facility] [address] [place] [address] 54828- 7534 Apr, [facility] [place] [facility] [address] [id number] [place] [address]- 4978 Apr, [facility] [place] [facility] [address] [id number] [place] [address]- 1540 Apr, [facility] [place] [facility] [address] [id number] [place] [address]- 4868 Apr, [facility] [place] [facility] [address] [id number] [place] [address]- 3940 Apr, [facility] [place] [facility] [address] [id number] [place] [address]- 1825 Mar, [facility] [place] [facility] [address] [id number] [place] [address]- 0186 Mar, [facility] [place] [facility] [address] [id number] [place] [address]- 2785 Mar, [facility] [place] [facility] [address] [id number] [place] [address]- 0281 Mar, [facility] [place] [facility] [address] [id number] [place] [address]- 3827 Mar, [facility] [place] [facility] [address] [id number] [place] [address]- 0151 Mar, [facility] [place] [facility] [address] [id number] [place] [address]- 9434 Mar, [facility] [place] [facility] [address] [id number] [place] [address]- 9263 Mar, [facility] [place] [facility] [address] [id number] [place] [address]- 3113 Mar, [facility] [place] [facility] [address] [id number] [place] [address]- 8317 17 Mar, 2014 [facility] [place] [facility] [address] [id number] [place] 3496 Mar, [facility] [place] [facility] [address] [id number] [place] [address]- 8266 Mar, [facility] [place] [facility] [address] [id number] [place] [address]- 1122 Jan, [facility] [place] [facility] [address] [id number] [place] [address]- 4806 Jan, [facility] [place] [facility] [address] [id number] [place] [address] 2546 Jan, [facility] [place] [facility] [address] [id number] [place] [address]- 8406 Jan, [facility] [place] [facility] [address] [id number] [place] [address]- 6873 Dec, [facility] [place] [facility] [address] [id number] [place] [address]- 8143 Dec, [facility] [place] [facility] [address] [id number] [place] [address]- 5857 August, [facility] [place] [facility] [address] [id number] [place] [address]- 5486 August, [facility] [place] [facility] [address] [id number] [place] [address]- 0085 Jun, [facility] [place] [facility] [address] [id number] [place] [address]- 4846 Jun, [facility] [place] [facility] [address] [id number] [address]- 5199 Apr, [facility] [place] [facility] [address] [id number] [address]- 9735 Apr, [facility] [place] [facility] [address] [id number] [place] [address]- 3022 Mar, [facility] [place] [facility] [address] [id number] [place] [address]- 3522 Mar, [facility] [place] [facility] [address] [id number] [place] [address]- 3854 Feb, [facility] [place] [facility] [address] [facility] [id number] [address]- 2546 Feb, [facility] [address] [facility] [id number][place] [address]- 2546 Oct, [facility] [address] [id number] [address]- 2546 Jul, [facility] [address] [facility] [id number][place] [address]- 2546 Jul, [facility] [address] [id number] [address]- 2546 Mar, [facility] [address] [facility] [id number], [place] [address]- 0846 August, IMMUNIZATIONS No Known Immunizations SOCIAL HISTORY Never Assessed REASON FOR VISIT intake PLAN OF CARE Activity Details Follow Up next available Reason: VITAL SIGNS MEDICATIONS Medication Instructions Dosage Frequency Start Date End Date Duration Status Paroxetine HCl 20 mg Orally Once a day 1 tablet in the morning 24h August, 30 day(s) Unknown Doxycycline 40 MG Orally Once a day 1 capsule on an empty stomach in the morning 24h Unknown Ortho Tri-Cyclen (28) 0.18/0.215/0.25 MG-35 MCG Orally Once a day 1 tablet 24h May, 28 day(s) Unknown RESULTS No Results PROCEDURES Procedure Date Ordered Result Body Site Psych diagnostic evaluation, established patient September 20, 2017 INSTRUCTIONS MEDICATIONS ADMINISTERED No Known Medications MEDICAL (GENERAL) HISTORY Type Description Date Medical History Depressive disorder, not elsewhere classified Surgical History myringotomy with ventilating tube Surgical History umbilical hernia surgery 2010
--- OUTSIDE RECORDS SUMMARY | 2018-02-19 18:32 | XMS REPORT ---
Author Author ELIZA BARKER Organization [facility] Address [address] [place] [address] Care Team Providers Care Blueprint Assembler Name Role Phone ELIZA BARKER Unavailable PROBLEMS Type Condition ICD9-CM Code USS80-AP Code Onset Dates Condition Status SNOMED Code Problem Current moderate episode of major depressive disorder, unspecified whether recurrent F32.1 Active 46097993 Problem Hair loss L65.9 Active 388000608 ALLERGIES No Information ENCOUNTERS Encounter Location Date Diagnosis [facility] [id number] [place] [address] 01526 -1340 Nov, Current moderate episode of major depressive disorder, unspecified whether recurrent F32.1 [facility] [id number] [place] [address] 52502- 2703 Nov, Unspecified contraceptive management Z30.9 [facility] [address] 69614- 7903 Nov, [facility] [id number] [place] [address] 73581- 2826 Nov, [facility] [id number] [place] [address] 73545 -9852 Nov, [facility] [id number] [place] [address] 94448 -0805 Nov, [facility] [id number] [place] [address] 81229 -7220 Nov, [facility] [id number] [place] [address] 24867- 1137 Nov, Current moderate episode of major depressive disorder, unspecified whether recurrent F32.1 [facility] [address] [place] [address]- 5870 Oct, [place] [id number] [place] [address] 84608- 5475 Sep, Current moderate episode of major depressive disorder, unspecified whether recurrent F32.1 [place] [id number] [place] [address] 44021- 3633 Sep, Current moderate episode of major depressive disorder, unspecified whether recurrent F32.1 [place] [id number] [place] [address] 77324- 0901 August, Current moderate episode of major depressive disorder, unspecified whether recurrent F32.1 [place] [id number] [place] [address] 49416- 2605 August, Pain of left hand M79.642 and Pain in right hand M79.641 [place] [address] 10862- 5927 August, Pain of left hand M79.642 ; Pain in right hand M79.641 ; Pain in left wrist M25.532 ; Pain in right wrist M25.531 and Bilateral elbow tendonitis M77.8 [place] [id number] [place] [address] 75095- 5262 Jul, Hair loss L65.9 [place] [id number] [place] [address] 06284- 8423 28 May, 2017 Fatigue, unspecified type R53.83 and Family history of diabetes mellitus Z83.3 [place] [id number] [place] [address] 24366- 7623 May, Unspecified contraceptive management Z30.9 [place] [address] 17880- 3230 Apr, Encounter for Depo-Provera contraception Z30.42 [place] [id number] [place] [address] 05437- 1345 Apr, [place] [id number] [place] [address] 39859- 9076 Feb, Encounter for Depo-Provera contraception Z30.42 [facility] [id number] [place] [address] 55307 -3163 Jan, Colitis K52.9 [facility] [id number] [place] [address] 32333- 6578 Dec, Sore throat J02.9 and Acute nasopharyngitis J00 [place] [id number] [place] [address] 18764- 6626 Nov, control counseling Z30.09 ; Screening for STD sexually transmitted disease Z11.3 and Encounter for Depo-Provera contraception Z30.42 [place] [id number] [place] [address] 99564- 3933 August, [facility] [id number] [place] [address] 04849 -7198 Jul, Screening breast examination Z12.39 [place] [id number] [place] [address] 16987- 6844 Jul, Encounter for Depo-Provera contraception Z30.42 [place] [id number] [place] [address] 87972- 0498 Apr, Encounter for Depo-Provera contraception Z30.42 [place] [id number] [place] [address] 70025- 1935 Feb, Encounter for Depo-Provera contraception Z30.42 [place] [id number] [place] [address] 09252- 2507 07 Dec, 2015 Pelvic pain R10.2 [place] [id number] [place] [address] 29072- 4960 Oct, Well child check Z00.129 ; Encounter for immunization Z23 ; Dietary counseling Z71.3 and Exercise counseling Z71.89 [place] [address] [id number] [address]- 9200 Oct, Encounter for Depo-Provera contraception Z30.42 [place] [address] [place] [address] 57233- 0238 Jul, Encounter for Depo-Provera contraception Z30.42 [place] [address] [place] [id number] [id number] Jun, Dental examination Z01.20 [facility] [address] [id number] Jun, Encounter for dental examination Z01.20 [place] [id number] [place] [address] 97844- 5942 May, Surveillance of contraceptive injection Z30.42 ; Encounter for Depo-Provera contraception Z30.42 and Routine screening for STI (sexually transmitted infection) Z11.3 [place] [id number] [place] [address] 87895- 8438 Feb, Initiation of Depo Provera Z30.8 and Encounter for prescription for depo-Provera Z30.013 [place] [id number] [place] [address] 57635- 0759 Jan, Sore throat J02.9 and Chronic tonsillitis J35.01 [place] [address] [place] [address] 69289- 5840 Oct, Routine child health exam V20.2 ; Dietary counseling and surveillance V65.3 and Exercise counseling V65.41 [place] [address], [place] [address]- 7990 Jul, [place] [id number] [place] [address] 40572- 3222 Jul, [place] [address] [place] [address] 72263- 4861 Apr, [place] [id number] [place] [address] 79959- 6302 Apr, [facility] [place] [facility] [address] [id number] [place] [address]- 5028 Apr, [facility] [place] [facility] [address] [id number] [place] [address]- 6322 Apr, [facility] [place] [facility] [address] [id number] [place] 8267 Apr, [facility] [place] [facility] [address] [id number] [place] [address]- 9620 Apr, [facility] [place] [facility] [address] [id number] [place] [address]- 4873 Mar, [facility] [place] [facility] [address] [id number] [place] [address]- 2306 Mar, [facility] [place] [facility] [address] [id number] [place] [address]- 4489 Mar, [facility] [place] [facility] [address] [id number] [place] [address]- 7012 Mar, [facility] [place] [facility] [address] [id number] [place] [address]- 7917 Mar, [facility] [place] [facility] [address] [id number] [place] [address]- 0981 Mar, [facility] [place] [facility] [address] [id number] [place] [address]- 6140 Mar, [facility] [place] [facility] [address] [id number] [place] [address]- 6810 Mar, [facility] [place] [facility] [address] [id number] [place] [address]- 2771 Mar, [facility] [place] [facility] [address] [id number] [place] [address]- 5680 17 Mar, 2014 [facility] [place] [facility] [address] [id number] [place] 8940 Mar, [facility] [place] [facility] [address] [id number] [place] [address]- 3969 Mar, [facility] [address] [id number] [place] [address]- 8891 Jan, [facility] [place] [facility] [address] [id number] [place] [address]- 5396 Jan, [facility] [address] [id number] [place] [address]- 6906 Jan, [facility] [place] [facility] [address] [id number] [place] [address] 2543 Jan, [facility] [place] [facility] [address] [id number] [place] [address]- 0334 Dec, [facility] [place] [facility] [address] [id number] [place] [address]- 6117 Dec, [facility] [address] [id number] [place] [address]- 5003 August, [facility] [address] [id number] [place] [address]- 6001 August, [facility] [place] [facility] [address] [id number] [place] [address]- 1187 Jun, [facility] [place] [facility] [address] [id number] [place] [address]- 9243 Jun, [facility] [place] [facility] [address] [id number] [place] [address]- 6559 Apr, [facility] [place] [facility] [address] [id number] [place] [address]- 3525 Apr, [facility] [place] [facility] [address] [id number] [place] [address]- 7886 Mar, [facility] [place] [facility] [address] [id number] [place] [address]- 7305 Mar, [facility] [place] [facility] [address] [id number] [place] [address]- 2642 14 Feb, 2013 [facility] [address] [id number] [address] 2546 14 Feb, 2013 [facility] [address], [place] [address]- 2546 Oct, [facility] [address], [place] [address]- 2546 Jul, [facility] [address], [place] [address]- 2546 Jul, [facility] [address], [place] [address] 2546 Mar, [facility] [id number] [address] 2546 August, IMMUNIZATIONS No Known Immunizations SOCIAL HISTORY Never Assessed REASON FOR VISIT Refill request PLAN OF CARE VITAL SIGNS MEDICATIONS Medication [...]
--- OUTSIDE RECORDS SUMMARY | 2018-02-19 18:32 | XMS REPORT ---
Author Author ELIZA BARKER Organization [facility] Address [address] [place] [address] Care Team Providers Care Director Of District Office Name Role Phone ELIZA BARKER Unavailable PROBLEMS Type Condition ICD9-CM Code RPS18-UY Code Onset Dates Condition Status SNOMED Code Problem Hair loss L65.9 Active 750323135 Problem Current moderate episode of major depressive disorder, unspecified whether recurrent F32.1 Active 66446059 Problem Pain of left hand M79.642 Active 914994902516473 Problem Pain in left wrist M25.532 Active 491308440299560 Problem Pain in right hand M79.641 Active 91165322829948060 Problem Bilateral elbow tendonitis M77.8 Active 40556708359659153 Problem Pain in right wrist M25.531 Active [id number] ALLERGIES No Information ENCOUNTERS Encounter Location Date Diagnosis [facility] [id number] [place] [address] 55076- 7346 Nov, [facility] [id number] [place] [address] 26823- 2270 Nov, Unspecified contraceptive management Z30.9 [facility] [id number] [place] [address] 80155- 0618 Nov, [facility] [id number] [place] [address] 61606- 9392 Nov, [facility] [id number] [place] [address] 91035 -8630 Nov, [facility] [id number] [place] [address] 99517 -8757 Nov, [facility] [id number] [place] [address] 87033 -9832 Nov, [place] [address] [address] 47[address] Nov, Current moderate episode of major depressive disorder, unspecified whether recurrent F32.1 [facility] [address] [address] 6120 Oct, [facility] [id number] [address] 5802 Sep, Current moderate episode of major depressive disorder, unspecified whether recurrent F32.1 [place] [address] [address] 0304 Sep, Current moderate episode of major depressive disorder, unspecified whether recurrent F32.1 [place] [address] [address] 5308 August, Current moderate episode of major depressive disorder, unspecified whether recurrent F32.1 [place] [address] [place] [address] 41745- 4781 August, Pain of left hand M79.642 and Pain in right hand M79.641 [place] [id number] [place] [address] 96438- 5029 August, Pain of left hand M79.642 ; Pain in right hand M79.641 ; Pain in left wrist M25.532 ; Pain in right wrist M25.531 and Bilateral elbow tendonitis M77.8 [place] [address] [place] [address] 63989- 5173 Jul, Hair loss L65.9 [place] [address] [place] [address] 98624- 2490 May, Fatigue, unspecified type R53.83 and Family history of diabetes mellitus Z83.3 [place] [address] [address] 9276 May, Unspecified contraceptive management Z30.9 [place] [id number] [place] [address] 95488- 1643 Apr, Encounter for Depo-Provera contraception Z30.42 [facility] [id number] [place] [address] 61301- 5639 Apr, [facility] [id number] [place] [address] 64072- 8808 Feb, Encounter for Depo-Provera contraception Z30.42 [facility] [id number] [place] [address] 93339 -4786 Jan, Colitis K52.9 [place] [address] 74450- 2991 Dec, Sore throat J02.9 and Acute nasopharyngitis J00 [place] [id number] [place] [address] 31547- 1929 Nov, control counseling Z30.09 ; Screening for STD sexually transmitted disease Z11.3 and Encounter for Depo-Provera contraception Z30.42 [facility] [id number] [place] [address] 06236- 7137 August, [facility] [id number] [place] [address] 63799 -0353 Jul, Screening breast examination Z12.39 [place] [id number] [place] [address] 21369- 3814 Jul, Encounter for Depo-Provera contraception Z30.42 [facility] [id number] [place] [address] 13354- 0508 Apr, Encounter for Depo-Provera contraception Z30.42 [place] [id number] [place] [address] 41254- 9921 Feb, Encounter for Depo-Provera contraception Z30.42 [place] [id number] [place] [address] 82808- 0094 07 Dec, 2015 Pelvic pain R10.2 [place] [address] [address]- 5762 Oct, Well child check Z00.129 ; Encounter for immunization Z23 ; Dietary counseling Z71.3 and Exercise counseling Z71.89 [place] [address] [address]- 9826 Oct, Encounter for Depo-Provera contraception Z30.42 [address] [place] [address] 09209- 0062 Jul, Encounter for Depo-Provera contraception Z30.42 [address] [id number] [address] Jun, Dental examination Z01.20 [facility] [address] [place] [address] [id number] Jun, Encounter for dental examination Z01.20 [address] [place] [address] 89227- 1407 May, Surveillance of contraceptive injection Z30.42 ; Encounter for Depo-Provera contraception Z30.42 and Routine screening for STI (sexually transmitted infection) Z11.3 [address] [place] [address] 44187- 0003 Feb, Initiation of Depo Provera Z30.8 and Encounter for prescription for depo-Provera Z30.013 [address] [place] [address] 58304- 4582 Jan, Sore throat J02.9 and Chronic tonsillitis J35.01 [address] [place] [address] 57147- 5348 Oct, Routine child health exam V20.2 ; Dietary counseling and surveillance V65.3 and Exercise counseling V65.41 [address] [place] [address] 69723- 1303 14 Jul, 2014 [id number] [place] [address] 53427- 1122 Jul, [facility] [place] [facility] [address] [id number] [place] [address]- 9731 Apr, [facility] [place] [facility] [address] [id number] [place] [address]- 6447 Apr, [facility] [place] [facility] [address] [id number] [place] [address]- 4301 Apr, [facility] [place] [facility] [address] [id number] [place] [address]- 8732 Apr, [facility] [place] [facility] [address] [id number] [place] [address]- 9435 Apr, [facility] [place] [facility] [address] [id number] [place] [address]- 7212 Apr, [facility] [place] [facility] [address] [id number] [place] [address]- 6761 Mar, [facility] [place] [facility] [address] [id number] [place] [address]- 7989 30 Mar, 2014 [facility] [place] [facility] [address] [id number] [place] [address]- 0735 Mar, [facility] [place] [facility] [address] [id number] [place] [address]- 1526 Mar, [facility] [place] [facility] [address] [id number] [place] [address]- 8372 Mar, [facility] [place] [facility] [address] [id number] [address]- 8684 Mar, [facility] [place] [facility] [address] [id number] [place] [address]- 5075 Mar, [facility] [place] [facility] [address] [id number] [place] [address]- 8660 Mar, [facility] [place] [facility] [address] [id number] [place] [address]- 2065 Mar, [facility] [place] [facility] [address] [id number] [place] [address]- 7390 Mar, [facility] [address] [id number] [place] [address]- 0015 Mar, [facility] [place] [facility] [address] [id number] [place] [address]- 9776 Mar, [facility] [place] [facility] [address] [id number] [place] [address]- 5046 Jan, [facility] [place] [facility] [address] [id number] [place] [address]- 2431 Jan, [facility] [place] [facility] [address] [id number] [place] [address]- 2617 Jan, [facility] [place] [facility] [address] [id number] [place] [address]- 7636 Jan, [facility] [address] [id number] [place] [address]- 8987 Dec, [facility] [place] [facility] [address] [id number] [place] [address]- 5956 Dec, [facility] [place] [facility] [address] [id number] [place] [address]- 1805 August, [facility] [place] [facility] [address] [id number] [place] [address]- 8353 August, [facility] [place] [facility] [address] [id number] [place] [address]- 1349 Jun, [facility] [place] [facility] [address] [id number] [place] [address]- 0735 Jun, [facility] [place] [facility] [address] [id number] [place] [address]- 8790 Apr, [facility] [place] [facility] [address] [id number] [place] [address]- 2546 Apr, [facility] [place] [facility] [address] [id number] [place] [address]- 3380 Mar, [facility] [address] [facility] [id number] [address]- 6106 13 Mar, 2013 [facility] [id number] [address] 2546 14 Feb, 2013 [facility] [id number] [address] 2546 Feb, [facility] [address] [address]- 2546 Oct, [facility] [id number] [address] 2542 Jul, [facility] [id number] [address] 2546 Jul, [facility] [address] [address]- 4438 Mar, [facility] [id number] [address]- 2556 August, IMMUNIZATIONS No Known Immunizations SOCIAL HISTORY Never Assessed REASON FOR VISIT Xray (walk-in) MHill RT(R) PLAN OF CARE VITAL SIGNS MEDICATIONS Unknown Medications RESULTS Name Result Date Reference Range Xray : Hand, Left 3 views (IN HOUSE) 2017-08-23 Xray : Hand, Right 3 views (IN HOUSE) 2017-08-23 Xray : Wrist, Left 3 views (IN HOUSE) 2017-08-23 Xray : Wrist, Right 3 views (IN HOUSE) 2017-08-23 PROCEDURES Procedure Date Ordered Result Body Site X-RAY EXAM OF WRIST August 23, 2017 X-RAY EXAM OF HAND August 23, 2017 INSTRUCTIONS MEDICATIONS ADMINISTERED No Known Medications MEDICAL (GENERAL) HISTORY Type Description Date Medical History Depressive disorder, not elsewhere classified Surgical History myringotomy with ventilating tube Surgical History umbilical hernia surgery 2010
--- OUTSIDE RECORDS SUMMARY | 2018-02-19 18:32 | XMS REPORT ---
Author Author ELIZA BARKER Organization [facility] Address [address] [place] [address] Care Team Providers Care Steel Rule Die Maker Name Role Phone ELIZA BARKER Unavailable PROBLEMS Type Condition ICD9-CM Code [id number] Code Onset Dates Condition Status SNOMED Code Problem Current moderate episode of major depressive disorder, unspecified whether recurrent F32.1 Active 06788784 Problem Hair loss L65.9 Active 563646740 ALLERGIES Substance Reaction Event Type Date Status Penicillin V Potassium anaphylaxis Drug Allergy August, Active ENCOUNTERS Encounter Location Date Diagnosis [facility] [id number] [place] [address] 75458 -1594 Nov, Current moderate episode of major depressive disorder, unspecified whether recurrent F32.1 [facility] [id number] [place] [address] 75912- 7451 Nov, [facility] [id number] [place] [address] 52479- 3137 Nov, [facility] [id number] [place] [address] 75161- 0558 Nov, Unspecified contraceptive management Z30.9 [facility] [id number] [place] [address] 44272 -5138 Nov, [facility] [id number] [place] [address] 11532 -6342 Nov, [facility] [id number] [place] [address] 04257 -5428 Nov, [facility] [id number] [place] [address] 25025- 1795 Nov, Current moderate episode of major depressive disorder, unspecified whether recurrent F32.1 [place] [address] [place] [address] 96425- 3698 Oct, [place] [id number] [place] [address] 93242- 0163 Sep, Current moderate episode of major depressive disorder, unspecified whether recurrent F32.1 [place] [id number] [place] [address] 92224- 3598 Sep, Current moderate episode of major depressive disorder, unspecified whether recurrent F32.1 [place] [id number] [place] [address] 00631- 5889 August, Current moderate episode of major depressive disorder, unspecified whether recurrent F32.1 [place] [id number] [place] [address] 41174- 5526 August, Pain of left hand M79.642 and Pain in right hand M79.641 [place] [id number] [place] [address] 86091- 9925 August, Pain of left hand M79.642 ; Pain in right hand M79.641 ; Pain in left wrist M25.532 ; Pain in right wrist M25.531 and Bilateral elbow tendonitis M77.8 [place] [id number] [place] [address] 99560- 8486 Jul, Hair loss L65.9 [place] [id number] [place] [address] 50741- 0097 28 May, 2017 Fatigue, unspecified type R53.83 and Family history of diabetes mellitus Z83.3 [place] [id number] [place] [address] 72853- 2312 May, Unspecified contraceptive management Z30.9 [place] [id number] [place] [address] 48734- 1243 Apr, Encounter for Depo-Provera contraception Z30.42 [place] [id number] [place] [address] 24675- 0542 Apr, [facility] [address] [place] [address] 31309- 5385 Feb, Encounter for Depo-Provera contraception Z30.42 [facility] [id number] [place] [address] 91152 -2880 Jan, Colitis K52.9 [facility] [address] 11551- 5123 Dec, Sore throat J02.9 and Acute nasopharyngitis J00 [place] [id number] [place] [address] 32847- 7404 Nov, control counseling Z30.09 ; Screening for STD sexually transmitted disease Z11.3 and Encounter for Depo-Provera contraception Z30.42 [place] [id number] [place] [address] 52901- 2945 August, [facility] [id number] [place] [address] 44521 -2189 Jul, Screening breast examination Z12.39 [place] [address] 37805- 7856 Jul, Encounter for Depo-Provera contraception Z30.42 [place] [id number] [place] [address] 82152- 9708 Apr, Encounter for Depo-Provera contraception Z30.42 [place] [id number] [place] [address] 60531- 0604 Feb, Encounter for Depo-Provera contraception Z30.42 [place] [id number] [place] [address] 66719- 9198 07 Dec, 2015 Pelvic pain R10.2 [place] [id number] [place] [address] 01595- 4136 Oct, Well child check Z00.129 ; Encounter for immunization Z23 ; Dietary counseling Z71.3 and Exercise counseling Z71.89 [facility] [address], [place] [address]- 0191 Oct, Encounter for Depo-Provera contraception Z30.42 [facility] [address], [place] [address]- 2758 Jul, Encounter for Depo-Provera contraception Z30.42 [address] [id number] Jun, Dental examination Z01.20 [facility] [address] [id number] Jun, Encounter for dental examination Z01.20 [place] [address] [place] [address] 49480- 0386 May, Surveillance of contraceptive injection Z30.42 ; Encounter for Depo-Provera contraception Z30.42 and Routine screening for STI (sexually transmitted infection) Z11.3 [place] [address] [place] [address] 83696- 1919 Feb, Initiation of Depo Provera Z30.8 and Encounter for prescription for depo-Provera Z30.013 [place] [address] [place] [address] 78834- 4833 Jan, Sore throat J02.9 and Chronic tonsillitis J35.01 [place] [address] [place] [address] 13717- 2257 Oct, Routine child health exam V20.2 ; Dietary counseling and surveillance V65.3 and Exercise counseling V65.41 [place] [address] [place] [address] 85024- 0428 Jul, [place] [address] [place] [address] 18412- 4561 Jul, [place] [address] [place] [address] 56918- 5607 Apr, [place] [id number] [address]- 2640 Apr, [facility] [address] [id number] [place] [address]- 1288 Apr, [facility] [place] [facility] [address] [id number] [place] [address]- 3308 Apr, [facility] [address] [id number] [place] [address]- 2290 Apr, [facility] [address] [id number] [place] [address]- 9296 Apr, [facility] [address] [id number] [place] [address]- 9440 Mar, [facility] [address] [id number] [place] [address]- 0152 Mar, [facility] [address] [id number] [place] [address]- 1748 Mar, [facility] [address] [id number] [place] [address]- 4846 Mar, [facility] [address] [id number] [place] [address]- 4401 Mar, [facility] [address] [id number] [place] [address]- 8614 Mar, [facility] [place] [place] [facility] [address] [id number] [place] [address]- 0828 Mar, [facility] [place] [place] [facility] [address] [id number] [place] [address]- 8327 Mar, [facility] [place] [facility] [address] [id number] [place] [address] Mar, [facility] [place] [facility] [address] [id number] [place] [address]- 0636 17 Mar, 2014 [facility] [place] [facility] [address] [id number] [place] [address]- 7887 Mar, [facility] [place] [facility] [address] [id number] [place] [address]- 1298 Mar, [facility] [place] [facility] [address] [id number] [place] [address]- 8478 Jan, [facility] [place] [facility] [address] [id number] [place] [address]- 5861 Jan, [facility] [place] [facility] [address] [id number] [place] [address]- 7876 Jan, [facility] [place] [facility] [address] [id number] [place] [address]- 6801 Jan, [facility] [place] [facility] [address] [id number] [place] [address]- 5627 Dec, [facility] [place] [facility] [address] [id number] [place] [address]- 1286 Dec, [facility] [place] [facility] [address] [id number] [place] [address]- 9100 August, [facility] [place] [facility] [address] [id number] [place] [address]- 9539 August, [facility] [place] [facility] [address] [id number] [place] [address]- 4571 Jun, [facility] [place] [facility] [address] [id number] [place] [address]- 6934 Jun, [facility] [place] [facility] [address] [id number], [place] [address]- 8458 Apr, [facility] [place] [facility] [address] [id number] [place] [address]- 8399 Apr, [facility] [place] [facility] [address] [id number] [place] [address]- 1246 Mar, [facility] [place] [facility] [address] [id number] [place] [address]- 5369 Mar, [facility] [place] [facility] [address] [id number], [place] [address] 14 Feb, 2013 [facility] [address] [facility] [id number], [place] [address] 14 Feb, 2013 [facility] [address] [id number], [place] [address] Oct, [facility] [address] [id number], [place] [address] Jul, [facility] [address] [id number], [place] [address] Jul, [facility] [address] [id number], [place] [address] Mar, [facility] [address] [id number], [place] [address] August, IMMUNIZATIONS No Known Immunizations SOCIAL HISTORY Never Assessed REASON FOR VISIT Depression [facility], [facility] Activity Details Follow Up 4 Weeks, prn Reason:depression f/u VITAL SIGNS Height 60.5 in 2017-09-05 Weight 113.7 lbs 2017-09-05 Temperature 99.0 degrees Fahrenheit 2017-09-05 Heart Rate 104 bpm 2017-09-05 Respiratory Rate 20 2017-09-05 BMI 21.84 kg/m2 2017-09-05 Blood pressure systolic 118 mmHg 2017-09-05 Blood pressure diastolic 70 mmHg 2017-09-05 MEDICATIONS Medication Instructions Dosage Frequency Start Date [...]
--- OUTSIDE RECORDS SUMMARY | 2018-02-19 18:33 | XMS REPORT ---
Author Author ELIZA BARKER Organization [facility] Address [address] [place] [address] Care Team Providers Care Blanket Maker Name Role Phone ELIZA BARKER Unavailable PROBLEMS Type Condition ICD9-CM Code UIP05-MI Code Onset Dates Condition Status SNOMED Code Problem Hair loss L65.9 Active 050545227 Problem Current moderate episode of major depressive disorder, unspecified whether recurrent F32.1 Active 03058120 Problem Pain of left hand M79.642 Active 977092314814765 Problem Pain in left wrist M25.532 Active 175804249510819 Problem Pain in right hand M79.641 Active 22380943120541289 Problem Bilateral elbow tendonitis M77.8 Active 84932258052736018 Problem Pain in right wrist M25.531 Active [id number] ALLERGIES Substance Reaction Event Type Date Status Penicillin V Potassium anaphylaxis Drug Allergy August, Active ENCOUNTERS Encounter Location Date Diagnosis [facility] [id number] [place] [address] 28151- 2838 Nov, [facility] [id number] [place] [address] 15233- 4882 Nov, Unspecified contraceptive management Z30.9 [facility] [id number] [place] [address] 02530- 8251 Nov, [facility] [id number] [place] [address] 58903- 1816 Nov, [facility] [id number] [place] [address] 57412 -1331 Nov, [facility] [id number] [place] [address] 62666 -0924 Nov, [facility] [id number] [place] [address] 21615 -8074 Nov, [place] [address], [place] [address] Nov, Current moderate episode of major depressive disorder, unspecified whether recurrent F32.1 [facility] [address], [place] [address] Oct, [place] [id number] [place] [address] 85464- 7377 Sep, Current moderate episode of major depressive disorder, unspecified whether recurrent F32.1 [place] [id number] [place] [address] 57365- 9320 Sep, Current moderate episode of major depressive disorder, unspecified whether recurrent F32.1 [place] [address], [place] [address] 1656 August, Current moderate episode of major depressive disorder, unspecified whether recurrent F32.1 [place] [address], [place] [address] 7306 August, Pain of left hand M79.642 and Pain in right hand M79.641 [place] [address] [place] [address] 13363- 3093 August, Pain of left hand M79.642 ; Pain in right hand M79.641 ; Pain in left wrist M25.532 ; Pain in right wrist M25.531 and Bilateral elbow tendonitis M77.8 [place] [address] [place] [address] 26991- 8755 Jul, Hair loss L65.9 [place] [id number] [place] [address] 52630- 0593 May, Fatigue, unspecified type R53.83 and Family history of diabetes mellitus Z83.3 [place] [address], [place] [address] 8006 May, Unspecified contraceptive management Z30.9 [facility] [address], [place] [address] 4745 Apr, Encounter for Depo-Provera contraception Z30.42 [facility] [address] [place] [address] 05412- 2882 Apr, [facility] [id number] [place] [address] 76070- 7970 Feb, Encounter for Depo-Provera contraception Z30.42 [facility] [id number] [place] [address] 65227 -5722 Jan, Colitis K52.9 [facility] [id number] [place] [address] 98182- 5777 Dec, Sore throat J02.9 and Acute nasopharyngitis J00 [place] [id number] [place] [address] 69808- 3851 Nov, control counseling Z30.09 ; Screening for STD sexually transmitted disease Z11.3 and Encounter for Depo-Provera contraception Z30.42 [place] [id number] [place] [address] 68494- 8564 August, [facility] [id number] [place] [address] 94307 -9009 Jul, Screening breast examination Z12.39 [place] [id number] [place] [address] 59172- 7579 Jul, Encounter for Depo-Provera contraception Z30.42 [facility] [address] [place] [address] 38015- 7747 Apr, Encounter for Depo-Provera contraception Z30.42 [facility] [address] [place] [address] 56541- 4208 Feb, Encounter for Depo-Provera contraception Z30.42 [facility] [address] [place] [address] 21628- 9688 Dec, Pelvic pain R10.2 [place] [address], [place] [address] 8551 Oct, Well child check Z00.129 ; Encounter for immunization Z23 ; Dietary counseling Z71.3 and Exercise counseling Z71.89 [place] [address] [place] [address] 28502- 6808 Oct, Encounter for Depo-Provera contraception Z30.42 [place] [address] [place] [address] 39634- 7050 Jul, Encounter for Depo-Provera contraception Z30.42 [address] [id number] Jun, Dental examination Z01.20 [facility] [address] [place] [address] [id number] Jun, Encounter for dental examination Z01.20 [address] [place] [address] 52848- 0044 May, Surveillance of contraceptive injection Z30.42 ; Encounter for Depo-Provera contraception Z30.42 and Routine screening for STI (sexually transmitted infection) Z11.3 [address] [place] [address] 36370- 2375 Feb, Initiation of Depo Provera Z30.8 and Encounter for prescription for depo-Provera Z30.013 [place] [address] [place] [address] 83187- 8616 Jan, Sore throat J02.9 and Chronic tonsillitis J35.01 [id number] [place] [address] 82860- 8737 08 Oct, 2014 Routine child health exam V20.2 ; Dietary counseling and surveillance V65.3 and Exercise counseling V65.41 [address] [place] [address] 97889- 6748 Jul, [place] [id number] [address]- 8638 Jul, [facility] [address] [id number] [place] [address]- 9564 Apr, [facility] [place] [facility] [address] [id number] [place] [address]- 8760 Apr, [facility] [address] [id number] [place] [address]- 3018 Apr, [facility] [address] [id number] [place] [address]- 8986 Apr, [facility] [address] [id number] [place] [address]- 2134 Apr, [facility] [address] [id number] [place] [address]- 1863 Apr, [facility] [address] [id number] [place] [address]- 5469 Mar, [facility] [address] [id number] [place] [address]- 4904 Mar, [facility] [address] [id number] [place] [address]- 6572 Mar, [facility] [address] [id number] [place] [address]- 6596 Mar, [facility] [place] [facility] [address] [id number] [place] [address]- 4787 Mar, [facility] [address] [id number] [place] [address]- 6736 Mar, [facility] [place] [facility] [address] [id number] [place] 9790 Mar, [facility] [place] [facility] [address] [id number] [place] 6077 Mar, [facility] [place] [facility] [address] [id number] [place] 4942 Mar, [facility] [place] [facility] [address] [id number] [place] [address]- 8469 Mar, [facility] [place] [facility] [address] [id number] [place] [address]- 5991 Mar, [facility] [place] [facility] [address] [id number] [place] [address]- 0646 Mar, [facility] [place] [facility] [address] [id number] [place] [address]- 0779 Jan, [facility] [place] [facility] [address] [id number] [place] [address]- 6619 Jan, [facility] [place] [facility] [address] [id number] [place] [address]- 5216 Jan, [facility] [place] [facility] [address] [id number] [place] [address]- 3244 Jan, [facility] [place] [facility] [address] [id number] [place] [address]- 1129 Dec, [facility] [place] [facility] [address] [id number] [place] [address]- 1417 Dec, [facility] [place] [facility] [address] [id number] [place] [address]- 1652 August, [facility] [place] [facility] [address] [id number] [place] [address]- 4276 August, [facility] [place] [facility] [address] [id number] [place] [address]- 6603 Jun, [facility] [place] [facility] [address] [id number] [place] [address]- 3205 Jun, [facility] [place] [facility] [address] [id number] [place] [address]- 7536 Apr, [facility] [place] [facility] [address] [id number] [place] [address]- 6806 Apr, [facility] [place] [facility] [address] [id number] [address]- 8268 Mar, [facility] [address], [place] [address]- 5610 Mar, [facility] [address], [place] [address]- 9071 Feb, [facility] [address], [place] [address]- 1224 Feb, [facility] [id number] [place] [address] 78976- 3377 Oct, [facility] [id number] [place] [address] 39534- 8600 Jul, [facility] [id number] [place] [address] 03609- 3987 Jul, [facility] [id number] [place] [address] 85549- 6504 Mar, [facility] [address], [place] [address]- 1472 August, IMMUNIZATIONS No Known Immunizations SOCIAL HISTORY Never Assessed REASON FOR VISIT hand pain--Josh pt explains she has pain in her wrists and hands, pt has a family history of arthiritis PLAN OF CARE Activity Details Follow Up prn Reason:pending xray results VITAL SIGNS Height 60.5 in 2017-08-22 Weight 120.8 lbs 2017-08-22 Temperature 98.0 degrees Fahrenheit 2017-08-22 Heart Rate 80 bpm 2017-08-22 Respiratory Rate 20 2017-08-22 BMI 23.20 kg/m2 2017-08-22 Blood pressure systolic 104 mmHg 2017-08-22 Blood pressure diastolic 60 mmHg 2017-08-22 MEDICATIONS Medication Instructions Dosage Frequency Start Date End Date Duration Status Doxycycline 40 MG Orally Once a day 1 capsule on an empty stomach in the morning 24h Active Ortho Tri-Cyclen (28) 0.18/0.215/0.25 MG-35 MCG Orally Once a day 1 tablet 24h May, 28 day(s) Active RESULTS No Results PROCEDURES No Known procedures INSTRUCTIONS MEDICATIONS ADMINISTERED No Known Medications MEDICAL (GENERAL) HISTORY Type Description Date Medical History Depressive disorder, not elsewhere classified Surgical History myringotomy with ventilating tube Surgical History umbilical hernia surgery 2010
--- OUTSIDE RECORDS SUMMARY | 2018-02-19 18:33 | XMS REPORT ---
Author Author TAIWO SUAZO Organization [facility] Address [address] [place] [address] Care Team Providers Care Emergency Care Tech Name Role Phone TAIWO SUAZO Unavailable PROBLEMS Type Condition ICD9-CM Code WFE18-FS Code Onset Dates Condition Status SNOMED Code Problem Hair loss L65.9 Active 393011002 Problem Current moderate episode of major depressive disorder, unspecified whether recurrent F32.1 Active 26778243 Problem Pain of left hand M79.642 Active 990957534133800 Problem Pain in left wrist M25.532 Active 550778151307887 Problem Pain in right hand M79.641 Active 32575233710105576 Problem Bilateral elbow tendonitis M77.8 Active 37189540355162808 Problem Pain in right wrist M25.531 Active [id number] ALLERGIES No Information ENCOUNTERS Encounter Location Date Diagnosis [place] [id number] [place] [address] 74102- 1832 Oct, [facility] [id number] [place] [address] 00644- 8468 Sep, [facility] [address] [place] [address] 01239- 1183 Sep, [facility] [id number] [place] [address] 25111- 5189 August, Current moderate episode of major depressive disorder, unspecified whether recurrent F32.1 [facility] [id number] [place] [address] 53683- 8638 August, Pain of left hand M79.642 and Pain in right hand M79.641 [facility] [id number] [place] [address] 05169- 4740 August, Pain of left hand M79.642 ; Pain in right hand M79.641 ; Pain in left wrist M25.532 ; Pain in right wrist M25.531 and Bilateral elbow tendonitis M77.8 [place] [id number] [place] [address] 05377- 4249 Jul, Hair loss L65.9 [place] [address] 50328- 4343 May, Fatigue, unspecified type R53.83 and Family history of diabetes mellitus Z83.3 [place] [address] 93729- 8625 May, Unspecified contraceptive management Z30.9 [place] [address] 17203- 7621 Apr, Encounter for Depo-Provera contraception Z30.42 [place] [address] 82255- 7847 Apr, [place] [address] 42331- 0177 Feb, Encounter for Depo-Provera contraception Z30.42 [facility] [address] 97121 -9676 Jan, Colitis K52.9 [place] [address] 67303- 2344 Dec, Sore throat J02.9 and Acute nasopharyngitis J00 [place] [address] 16940- 3183 Nov, control counseling Z30.09 ; Screening for STD sexually transmitted disease Z11.3 and Encounter for Depo-Provera contraception Z30.42 [place] [id number] [place] [address] 85109- 0447 August, [facility] [address] 35352 -1629 Jul, Screening breast examination Z12.39 [facility] [address] [address]- 9161 Jul, Encounter for Depo-Provera contraception Z30.42 [place] [address] [place] [address] 03425- 9324 Apr, Encounter for Depo-Provera contraception Z30.42 [place] [id number] [place] [address] 39129- 8590 Feb, Encounter for Depo-Provera contraception Z30.42 [place] [address] [place] [address] 73658- 3063 Dec, Pelvic pain R10.2 [place] [address] [place] [address] 71914- 4849 Oct, Well child check Z00.129 ; Encounter for immunization Z23 ; Dietary counseling Z71.3 and Exercise counseling Z71.89 [place] [address] [place] [address] 53929- 4816 Oct, Encounter for Depo-Provera contraception Z30.42 [place] [address] [place] [address] 65828- 3930 Jul, Encounter for Depo-Provera contraception Z30.[address] [id number] [id number] Jun, Dental examination Z01.20 [facility] [id number] [id number] Jun, Encounter for dental examination Z01.20 [facility] [address] [place] [address] 51477- 5192 May, Surveillance of contraceptive injection Z30.42 ; Encounter for Depo-Provera contraception Z30.42 and Routine screening for STI (sexually transmitted infection) Z11.3 [place] [address] [place] [address] 12599- 2991 Feb, Initiation of Depo Provera Z30.8 and Encounter for prescription for depo-Provera Z30.013 [facility] [id number] [place] [address] 43927- 5724 Jan, Sore throat J02.9 and Chronic tonsillitis J35.01 [facility] [id number] [place] [address] 22932- 1046 Oct, Routine child health exam V20.2 ; Dietary counseling and surveillance V65.3 and Exercise counseling V65.41 [facility] [id number] [place] [address] 37593- 3006 Jul, [facility] [id number] [place] [address] 51642- 4510 Jul, [facility] [id number] [place] [address] 83287- 4887 Apr, [facility] [id number] [place] [address] 12632- 9759 Apr, [facility] [id number] [place] [address] 34507- 0387 Apr, [facility] [id number] [place] [address] 30863- 8064 Apr, [facility] [address] [place] [address] 36638- 7826 Apr, [facility] [id number] [place] [address] 97673- 8825 Apr, [facility] [address] [place] [address] 45753- 3595 Mar, [facility] [id number] [place] [address] 99957- 7633 Mar, [facility] [address] [place] [address] 75258- 6576 Mar, [facility] [id number] [place] [address], [place] [address]- 3112 Mar, [facility] [place] [facility] [address] [id number] [place] [address]66 Mar, [facility] [place] [facility] [address] [id number] [place] 8722 Mar, [facility] [place] [facility] [address] [id number] [place] [address]- 3555 Mar, [facility] [place] [facility] [address] [id number] [place] 2331 Mar, [facility] [place] [facility] [address] [id number] [place] 5911 Mar, [facility] [place] [facility] [address] [id number] [place] [address]- 2120 Mar, [facility] [place] [facility] [address] [id number] [place] [address]- 0414 Mar, [facility] [place] [facility] [address] [id number] [place] [address]- 6772 Mar, [facility] [place] [facility] [address] [id number] [place] [address]- 9374 Jan, [facility] [place] [facility] [address] [facility] [id number] [place] [address]- 1906 Jan, [facility] [place] [facility] [address] [id number] [place] [address]- 2244 Jan, [facility] [place] [facility] [address] [id number] [place] [address]- 0351 Jan, [facility] [place] [facility] [address] [id number] [place] [address]- 3621 Dec, [facility] [place] [facility] [address] [id number] [place] [address]- 9651 Dec, [facility] [place] [facility] [address] [facility] [id number] [place] [address]- 2699 August, [facility] [place] [facility] [address] [address]- 5188 August, [facility] [address] [address]- 8314 Jun, [facility] [address] [address]- 4595 Jun, [facility] [address] [address]- 6880 Apr, [facility] [address] [facility] [id number] [address]- 6899 Apr, [facility] [place] [address] [address] Mar, [facility] [place] [address] [address] Mar, [facility] [place] [address] [address] Feb, [facility] [place] [address] [address] Feb, [facility] [place] [address] [address] Oct, [facility] [place] [id number] [address] Jul, [facility] [place] [id number] [address] Jul, [facility] [place] [id number] [address] Mar, [facility] [place] [address] [id number] August, IMMUNIZATIONS No Known Immunizations SOCIAL HISTORY Never Assessed REASON FOR VISIT Medication Request PLAN OF CARE VITAL SIGNS MEDICATIONS Unknown Medications RESULTS No Results PROCEDURES No Known procedures INSTRUCTIONS MEDICATIONS ADMINISTERED No Known Medications MEDICAL (GENERAL) HISTORY Type Description Date Medical History Depressive disorder, not elsewhere classified Surgical History myringotomy with ventilating tube Surgical History umbilical hernia surgery 2010
--- OUTSIDE RECORDS SUMMARY | 2018-02-19 18:33 | XMS REPORT ---
Author Author ELIZA BARKER Organization [facility] Address [address] [place] [address] Care Team Providers Care Retail Training Manager Name Role Phone ELIZA BARKER Unavailable PROBLEMS Type Condition ICD9-CM Code OHD66-WV Code Onset Dates Condition Status SNOMED Code Problem Hair loss L65.9 Active 103102679 Problem Current moderate episode of major depressive disorder, unspecified whether recurrent F32.1 Active 01635156 Problem Pain of left hand M79.642 Active 794458194871746 Problem Pain in left wrist M25.532 Active 652811028448382 Problem Pain in right hand M79.641 Active 30647126398165284 Problem Bilateral elbow tendonitis M77.8 Active 44141616491256400 Problem Pain in right wrist M25.531 Active 82310545894095847 ALLERGIES Substance Reaction Event Type Date Status Penicillin V Potassium anaphylaxis Drug Allergy Jul, Active ENCOUNTERS Encounter Location Date Diagnosis [place] [id number] [place] [address] 94789- 0511 Oct, [place] [id number] [place] [address] 74998- 9543 Sep, Current moderate episode of major depressive disorder, unspecified whether recurrent F32.1 [facility] [id number] [place] [address] 42212- 6546 Sep, Current moderate episode of major depressive disorder, unspecified whether recurrent F32.1 [place] [id number] [place] [address] 42913- 9502 August, Current moderate episode of major depressive disorder, unspecified whether recurrent F32.1 [facility] [id number] [place] [address] 13429- 0916 August, Pain of left hand M79.642 and Pain in right hand M79.641 [place] [id number] [place] [address] 13139- 8236 August, Pain of left hand M79.642 ; Pain in right hand M79.641 ; Pain in left wrist M25.532 ; Pain in right wrist M25.531 and Bilateral elbow tendonitis M77.8 [place] [id number] [place] [address] 38631- 1360 Jul, Hair loss L65.9 [place] [id number] [place] [address] 28198- 9518 May, Fatigue, unspecified type R53.83 and Family history of diabetes mellitus Z83.3 [place] [id number] [place] [address] 97508- 6128 May, Unspecified contraceptive management Z30.9 [place] [id number] [place] [address] 37607- 8221 Apr, Encounter for Depo-Provera contraception Z30.42 [place] [id number] [place] [address] 37841- 8211 Apr, [place] [id number] [place] [address] 69324- 1426 Feb, Encounter for Depo-Provera contraception Z30.42 [facility] [id number] [place] [address] 24402 -2389 Jan, Colitis K52.9 [place] [id number] [place] [address] 56927- 5514 Dec, Sore throat J02.9 and Acute nasopharyngitis J00 [place] [id number] [place] [address] 53306- 7293 Nov, control counseling Z30.09 ; Screening for STD sexually transmitted disease Z11.3 and Encounter for Depo-Provera contraception Z30.42 [place] [id number] [address] August, [facility] [address] [place] [address] 99474 -0928 Jul, Screening breast examination Z12.39 [facility] [address] [place] [address] 30933- 1601 Jul, Encounter for Depo-Provera contraception Z30.42 [place] [id number] [place] [address] 88594- 9438 Apr, Encounter for Depo-Provera contraception Z30.42 [place] [address] 22831- 6410 Feb, Encounter for Depo-Provera contraception Z30.42 [place] [id number] [place] [address] 52041- 9732 Dec, Pelvic pain R10.2 [place] [id number] [place] [address] 72490- 3802 Oct, Well child check Z00.129 ; Encounter for immunization Z23 ; Dietary counseling Z71.3 and Exercise counseling Z71.89 [place] [address] [place] [address] 51714- 9030 Oct, Encounter for Depo-Provera contraception Z30.42 [place] [address] [place] [address] 91464- 7844 Jul, Encounter for Depo-Provera contraception Z30.42 [facility] [address] [id number] [id number] Jun, Dental examination Z01.20 [facility] [address] [place] [address] [id number] Jun, Encounter for dental examination Z01.20 [facility] [address] [place] [address] 92973- 1351 May, Surveillance of contraceptive injection Z30.42 ; Encounter for Depo-Provera contraception Z30.42 and Routine screening for STI (sexually transmitted infection) Z11.3 [facility] [address] [place] [address] 97110- 6498 18 Feb, 2015 Initiation of Depo Provera Z30.8 and Encounter for prescription for depo-Provera Z30.013 [facility] [id number] [place] [address] 13244- 0643 07 Jan, 2015 Sore throat J02.9 and Chronic tonsillitis J35.01 [facility] [id number] [place] [address] 76323- 6352 08 Oct, 2014 Routine child health exam V20.2 ; Dietary counseling and surveillance V65.3 and Exercise counseling V65.41 [place] [id number] [place] [address] 38908- 0019 14 Jul, 2014 [facility] [id number] [place] [address] 70016- 3069 Jul, [facility] [id number] [place] [address] 56616- 0389 Apr, [facility] [id number] [place] [address] 13298- 3487 Apr, [facility] [id number] [place] [address] 56182- 1722 Apr, [facility] [id number] [place] [address] 63622- 1112 Apr, [facility] [id number] [place] [address] 33718- 1739 Apr, [facility] [id number] [place] [address] 18701- 2568 Apr, [facility] [id number] [place] [address] 01205- 4525 Mar, [facility] [id number] [place] [address] 61874- 2606 Mar, [facility] [place] [facility] [address] [id number] [place] [address]- 7774 Mar, [facility] [place] [facility] [address] [id number] [place] [address]- 2277 Mar, [facility] [place] [facility] [address] [id number] [place] 6934 Mar, [facility] [place] [facility] [address] [id number] [place] [address]- 8432 Mar, [facility] [place] [facility] [address] [id number] [place] [address]- 4689 Mar, [facility] [place] [facility] [address] [id number] [place] [address]- 4257 Mar, [facility] [place] [facility] [address] [id number] [place] [address]- 7930 Mar, [facility] [place] [facility] [address] [id number] [place] [address]- 2187 Mar, [facility] [place] [facility] [address] [id number] [place] [address]- 0275 Mar, [facility] [place] [facility] [address] [id number] [place] [address]- 8851 Mar, [facility] [place] [facility] [address] [id number], [place] [address]- 1588 Jan, [facility] [place] [facility] [address] [id number], [place] [address]- 9569 Jan, [facility] [place] [facility] [address] [id number] [place] [address]- 8352 Jan, [facility] [place] [facility] [address] [id number] [place] [address]- 7972 Jan, [facility] [place] [facility] [address] [id number], [place] [address]- 3559 Dec, [facility] [place] [facility] [address] [id number], [place] [address]- 6156 Dec, [facility] [address] [facility] [id number] [place] [address]- 1192 August, [facility] [address] [facility] [id number], [place] [address]- 3266 August, [facility] [address] [facility] [id number] [place] [address]- 4937 Jun, [facility] [address] [facility] [id number] [place] [address]- 2981 Jun, [facility] [address] [facility] [id number] [place] [address]- 4269 Apr, [facility] [address] [facility] [id number] [place] [address]- 2156 Apr, [facility] [address] [address]- 2230 Mar, [facility] [id number] [address]- 1618 13 Mar, 2013 [facility] [id number], [place] [address]- 1360 14 Feb, 2013 [facility] [id number], [place] [address]- 1041 14 Feb, 2013 [facility] [id number], [place] [address]- 0611 Oct, [facility] [address] [facility] [id number], [place] [address]- 1689 15 Jul, 2012 [facility] [address] [facility] [id number], [place] [address]- 2487 Jul, [facility] [address] [facility] [id number] 2614 13 Mar, 2011 [facility] [id number], [place] [address]- 9229 August, IMMUNIZATIONS No Known Immunizations SOCIAL HISTORY Never Assessed REASON FOR VISIT hair loss--tcuppeRachna, -Reports increased hairloss over past few months. Is concerned because her mother has a disorder and lost all of her hair. Requesting thyroid check PLAN OF CARE Activity Details Follow Up prn, with PCP Reason: VITAL SIGNS Height 60.5 in 2017-07-23 Weight 117.5 lbs 2017-07-23 Temperature 97.9 degrees Fahrenheit 2017-07-23 Heart Rate 76 bpm 2017-07-23 Respiratory Rate 18 2017-07-23 BMI 22.57 kg/m2 2017-07-23 Blood pressure systolic 108 mmHg 2017-07-23 Blood pressure diastolic 60 mmHg 2017-07-23 MEDICATIONS Medication Instructions Dosage Frequency Start Date End Date Duration Status Spironolactone 50 mg Orally twice a day 1 tablet 12h Active Ortho Tri-Cyclen (28) 0.18/0.215/0.25 MG-35 MCG Orally Once a day 1 tablet 24h May, 28 day(s) Active RESULTS No Results PROCEDURES Procedure Date Ordered Result Body Site Hemoglobin Test Send Out 0 dollar July 23, 2017 LAB NOT BILLED BY [email or web address] July 23, 2017 INSTRUCTIONS MEDICATIONS ADMINISTERED No Known Medications MEDICAL (GENERAL) HISTORY Type Description Date Medical History Depressive disorder, not elsewhere classified Surgical History myringotomy with ventilating tube Surgical History umbilical hernia surgery 2010
--- OUTSIDE RECORDS SUMMARY | 2018-02-19 18:33 | XMS REPORT ---
Author Author LUCY SUE Organization [facility] Address [address] [place] [address] Care Team Providers Care Planning Technician Name Role Phone LUCY SUE Unavailable PROBLEMS Type Condition ICD9-CM Code RZG08-TF Code Onset Dates Condition Status SNOMED Code Problem Hair loss L65.9 Active 852705769 Problem Current moderate episode of major depressive disorder, unspecified whether recurrent F32.1 Active 99457366 Problem Pain of left hand M79.642 Active 303749484568270 Problem Pain in left wrist M25.532 Active 686476766792805 Problem Pain in right hand M79.641 Active 54942499962173759 Problem Bilateral elbow tendonitis M77.8 Active 77536849177253275 Problem Pain in right wrist M25.531 Active 53671203271856433 ALLERGIES Substance Reaction Event Type Date Status Penicillin V Potassium anaphylaxis Drug Allergy May, Active ENCOUNTERS Encounter Location Date Diagnosis [place] [id number] [place] [address] 93438- 9940 Oct, [place] [address] [id number] [place] [address] 20165- 0247 Sep, Current moderate episode of major depressive disorder, unspecified whether recurrent F32.1 [facility] [id number] [place] [address] 66050- 1037 Sep, Current moderate episode of major depressive disorder, unspecified whether recurrent F32.1 [place] [address] [id number] [place] [address] 23906- 4249 August, Current moderate episode of major depressive disorder, unspecified whether recurrent F32.1 [place] [address] [place] [id number] [address]- 7362 August, Pain of left hand M79.642 and Pain in right hand M79.641 [place] [address] 30306- 0639 August, Pain of left hand M79.642 ; Pain in right hand M79.641 ; Pain in left wrist M25.532 ; Pain in right wrist M25.531 and Bilateral elbow tendonitis M77.8 [place] [address] 14245- 7094 Jul, Hair loss L65.9 [place] [address] 19873- 1610 May, Fatigue, unspecified type R53.83 and Family history of diabetes mellitus Z83.3 [place] [address] 76618- 7053 May, Unspecified contraceptive management Z30.9 [place] [address] 02352- 3280 Apr, Encounter for Depo-Provera contraception Z30.42 [place] [address] 80914- 0604 Apr, [place] [id number] [place] [address] 34041- 4685 Feb, Encounter for Depo-Provera contraception Z30.42 [facility] [address] 31948 -1506 Jan, Colitis K52.9 [place] [id number] [place] [address] 90551- 3755 Dec, Sore throat J02.9 and Acute nasopharyngitis J00 [place] [address] 27194- 3654 Nov, control counseling Z30.09 ; Screening for STD sexually transmitted disease Z11.3 and Encounter for Depo-Provera contraception Z30.42 [place] [address], [place] [address]- 3326 August, [facility] [id number] [place] [address] 91296 -2579 Jul, Screening breast examination Z12.39 [facility] [address] [place] [address] 40030- 5429 Jul, Encounter for Depo-Provera contraception Z30.42 [facility] [id number] [place] [address] 26332- 7715 Apr, Encounter for Depo-Provera contraception Z30.42 [place] [id number] [place] [address] 18026- 6717 Feb, Encounter for Depo-Provera contraception Z30.42 [facility] [id number] [place] [address] 95225- 9918 Dec, Pelvic pain R10.2 [facility] [id number] [place] [address] 65496- 5652 Oct, Encounter for immunization Z23 ; Well child check Z00.129 ; Dietary counseling Z71.3 and Exercise counseling Z71.89 [place] [address] [place] [address] 73742- 3269 Oct, Encounter for Depo-Provera contraception Z30.42 [facility] [address] [place] [address] 19033- 4472 Jul, Encounter for Depo-Provera contraception Z30.42 [facility] [address] [id number] [id number] Jun, Dental examination Z01.20 [facility] [address] [address] Jun, Encounter for dental examination Z01.20 [facility] [address], [place] [address]- 8756 May, Encounter for Depo-Provera contraception Z30.42 ; Surveillance of contraceptive injection Z30.42 and Routine screening for STI ( sexually transmitted infection) Z11.3 [facility] [id number] [place] [address] 48136- 7734 18 Feb, 2015 Initiation of Depo Provera Z30.8 and Encounter for prescription for depo-Provera Z30.013 [facility] [id number] [place] [address] 68686- 8980 07 Jan, 2015 Sore throat J02.9 and Chronic tonsillitis J35.01 [facility] [id number] [place] [address] 95459- 4661 08 Oct, 2014 Routine child health exam V20.2 ; Dietary counseling and surveillance V65.3 and Exercise counseling V65.41 [facility] [id number] [place] [address] 21463- 9211 14 Jul, 2014 [facility] [id number] [place] [address] 74308- 7884 Jul, [facility] [id number] [place] [address] 75977- 7843 Apr, [facility] [id number] [place] [address] 85350- 2630 Apr, [facility] [id number] [place] [address] 66225- 0285 Apr, [facility] [id number] [place] [address] 05465- 7384 Apr, [facility] [id number] [place] [address] 73695- 5707 Apr, [facility] [id number] [place] [address] 68584- 5977 Apr, [facility] [id number] [place] [address] 43070- 4508 Mar, [facility] [id number] [place] [address] 24620- 7553 Mar, [facility] [place] [facility] [address] [id number] [place] [address]- 2412 Mar, [facility] [place] [facility] [address] [id number] [place] [address]- 0003 Mar, [facility] [place] [facility] [address] [id number] [place] [address]- 3737 Mar, [facility] [place] [facility] [address] [id number] [place] [address]- 2822 Mar, [facility] [place] [facility] [address] [id number] [place] [address]- 6042 Mar, [facility] [place] [facility] [address] [id number] [place] [address]- 1366 Mar, [facility] [place] [facility] [address] [id number] [place] [address]- 5962 Mar, [facility] [place] [facility] [address] [id number] [place] [address]- 7709 Mar, [facility] [place] [facility] [address] [id number] [place] [address]- 0808 Mar, [facility] [place] [facility] [address] [id number] [place] [address]- 9658 Mar, [facility] [place] [facility] [address] [id number] [place] [address]- 7209 Jan, [facility] [place] [facility] [address] [id number], [place] [address]- 4645 Jan, [facility] [place] [facility] [address] [id number] [place] [address]- 5144 Jan, [facility] [place] [facility] [address] [id number] [place] [address]- 8826 Jan, [facility] [place] [facility] [address] [id number] [place] [address]- 4787 Dec, [facility] [place] [facility] [address] [id number] [place] [address]- 2206 Dec, [facility] [address] [id number] [place] [address]- 1011 August, [facility] [address] [facility] [id number] [place] [address]- 3486 August, [facility] [address] [facility] [id number] [place] [address]- 3296 Jun, [facility] [address] [id number] [place] [address]- 2980 Jun, [facility] [address] [facility] [id number] [place] [address]- 7880 Apr, [facility] [address] [facility] [id number] [place] [address]- 0016 Apr, [facility] [id number] [place] [address]- 3500 13 Mar, 2013 [facility] [address] [facility] [id number] [place] [address]- 9067 Mar, [facility] [id number] [place] [address]- 4447 14 Feb, 2013 [facility] [address] [facility] [id number] [place] [address]- 4994 14 Feb, 2013 [facility] [id number] [place] [address]- 5202 Oct, [facility] [address] [facility] [id number], [place] [address]- 7369 15 Jul, 2012 [facility] [address] [facility] [id number], [place] [address]- 6530 02 Jul, 2011 [facility] [address] [facility] [id number], [place] [address]- 9136 13 Mar, 2011 [facility] [address] [facility] [id number], [place] [address]- 2345 August, IMMUNIZATIONS No Known Immunizations SOCIAL HISTORY Never Assessed REASON FOR VISIT Dizziness--tjanssen, --lightheaded, all day long. Been going on for weeks but this past week it has been worse. She is afraid to drive. , --feels weak, very tired even when going to bed early. , --questioned about family hx of diabetes if this could be a symptom. PLAN OF CARE Activity Details Follow Up prn pending lab with Dr. Arita or not improving Reason: VITAL SIGNS Height 60.5 in 2017-06-13 Weight 116.2 lbs 2017-06-13 Temperature 99.0 degrees Fahrenheit 2017-06-13 Heart Rate 88 bpm 2017-06-13 Respiratory Rate 18 2017-06-13 BMI 22.32 kg/m2 2017-06-13 Blood pressure systolic 108 mmHg 2017-06-13 Blood pressure diastolic 62 mmHg 2017-06-13 MEDICATIONS Medication Instructions Dosage Frequency Start Date End Date Duration Status Ortho Tri-Cyclen (28) 0.18/0.215/0.25 MG-35 MCG Orally Once a day 1 tablet 24h May, 28 day(s) Active Spironolactone 50 mg Orally twice a day 1 tablet 12h Active Doxycycline 40 MG Orally Once a day 1 capsule on an empty stomach in the morning 24h Active RESULTS No Results PROCEDURES Procedure Date Ordered Result Body Site LAB NOT BILLED BY [facility] Jun 13, 2017 GLUCOSE BLOOD TEST Jun 13, 2017 VENIPUNCT, ROUTINE* Jun 13, 2017 INSTRUCTIONS MEDICATIONS ADMINISTERED No Known Medications MEDICAL (GENERAL) HISTORY Type Description Date Medical History Depressive disorder, not elsewhere classified Surgical History myringotomy with ventilating tube Surgical History umbilical hernia surgery 2010
--- OUTSIDE RECORDS SUMMARY | 2018-02-19 18:34 | XMS REPORT ---
Author Author OSMAR JAMES [facility] eClinicalWorks Address Unknown Phone Unavailable Care Team Providers Care Debate Director Name Role Phone OSMAR JAMES Unavailable Allergies, Adverse Reactions, Alerts Substance Reaction Event Type Penicillin V Potassium anaphylaxis Drug Allergy Problems Problem Type Condition Code Onset Dates Condition Status Assessment Well child check Z00.129 Active Assessment Encounter for immunization Z23 Active Problem Surveillance of contraceptive injection Z30.42 Active Assessment Dietary counseling Z71.3 Active Assessment Exercise counseling Z71.89 Active Medications Medication Code System Code Instructions Start Date End Date Status Dosage Depo-Provera [facility] [address]-00 150 MG/ML Intramuscular x1 Mar 03, 2015 Feb 26, 2016 1 ml Procedures Procedure Coding System Code Date AUDIOMETRY-SCREEN CPT-4 61965 November 03, 2015 VISUAL ACUITY SCREEN CPT-4 51620 November 03, 2015 Preventive Care Est Pt. Age 12-17 CPT-4 40662 November 03, 2015 BEXSERO (MEN B) CPT-4 41660 November 03, 2015 MENINGOCOCCAL (MENVEO) CPT-4 31201 November 03, 2015 IMMUNIZATION ADMIN, EACH ADD (please include units) CPT-4 05825 November 03, 2015 SINGLE IMMUNIZATION ADMIN CPT-4 99214 November 03, 2015 Vital Signs Date/Time: November 03, 2015 Cardiac Monitoring Heart Rate 78 bpm Weight 98lbs 13oz lbs Height 60.4 in Ht Percentile 7.17 % Hearing Comments:pass both P / L Blood Pressure Diastolic 60 mmHg Blood Pressure Systolic 100 mmHg BMIPercentile 24.79 % Wt Percentile 6.23 % Results No Known Results Immunizations Vaccine Administration Date MENINGOCOCCAL (MENVEO) November 03, 2015 BEXSERO (MEN B) November 03, 2015 Summary Purpose eClinicalWorks Submission
--- OUTSIDE RECORDS SUMMARY | 2018-02-19 18:34 | XMS REPORT ---
Author Author TAIWO SUAZO Organization [facility] Address [address] [place] [address] Care Team Providers Care Medical Secretary Name Role Phone TAIWO SUAZO Unavailable PROBLEMS Type Condition ICD9-CM Code DPN56-DS Code Onset Dates Condition Status SNOMED Code Problem Hair loss L65.9 Active 704644090 ALLERGIES Substance Reaction Event Type Date Status Penicillin V Potassium anaphylaxis Drug Allergy Nov, Active ENCOUNTERS Encounter Location Date Diagnosis [place] [address] [address] Jul, Hair loss L65.9 [facility] [address] [address] 28 May, 2017 Fatigue, unspecified type R53.83 and Family history of diabetes mellitus Z83.3 [place] [address] [address] May, Unspecified contraceptive management Z30.9 [place] [address] [place] [id number] [place] [address] Apr, Encounter for Depo-Provera contraception Z30.42 [facility] [address] [place] [id number] [place] [address] 89554- 5404 Apr, [facility] [address] [place] [id number] [place] [address] 87421- 3937 Feb, Encounter for Depo-Provera contraception Z30.42 [facility] [address] [id number] [place] [address]47 -8052 Jan, Colitis K52.9 [facility] [address] [address] Dec, Sore throat J02.9 and Acute nasopharyngitis J00 [facility] [address] [address] Nov, control counseling Z30.09 ; Screening for STD sexually transmitted disease Z11.3 and Encounter for Depo-Provera contraception Z30.42 [facility] [address] [address] August, [facility] [address] [place] [place] [id number] [place] [address]59 [address]63 Jul, Screening breast examination Z12.39 [place] [address] [place] [id number] [place] [address] 00507- 8164 Jul, Encounter for Depo-Provera contraception Z30.42 [place] [address] [place] [id number] [place] [address] 91821- 2994 Apr, Encounter for Depo-Provera contraception Z30.42 [place] [address] [place] [address] 97830- 4055 Feb, Encounter for Depo-Provera contraception Z30.42 [place] [address] [place] [id number] [place] [address] 02191- 5640 Dec, Pelvic pain R10.2 [place] [address] [place] [id number] [place] [address] 39165- 1588 Oct, Encounter for immunization Z23 ; Well child check Z00.129 ; Dietary counseling Z71.3 and Exercise counseling Z71.89 [place] [address] [place] [address] 78648- 8240 Oct, Encounter for Depo-Provera contraception Z30.42 [place] [address] [place] [id number] [place] [address] 03701- 4441 Jul, Encounter for Depo-Provera contraception Z30.[address] [id number] [id number] Jun, Dental examination Z01.20 [facility] [address] [place] [id number] [address] Jun, Encounter for dental examination Z01.20 [facility] [address] [place] [address] 28085- 5953 03 May, 2015 Encounter for Depo-Provera contraception Z30.42 ; Surveillance of contraceptive injection Z30.42 and Routine screening for STI ( sexually transmitted infection) Z11.3 [facility] [address] [place] [id number] [place] [address] 77422- 7983 Feb, Initiation of Depo Provera Z30.8 and Encounter for prescription for depo-Provera Z30.013 [facility] [address] [place] [id number] [place] [address] 53944- 1263 Jan, Sore throat J02.9 and Chronic tonsillitis J35.01 [facility] [address] [place] [id number] [place] [address] 28130- 8820 Oct, Routine child health exam V20.2 ; Dietary counseling and surveillance V65.3 and Exercise counseling V65.41 [facility] [address] [place] [id number] [place] [address] 98045- 1647 Jul, [facility] [address] [place] [id number] [place] [address] 04160- 5597 Jul, [facility] [address] [place] [id number] [place] [address] 46282- 3793 Apr, [facility] [address] [place] [id number] [place] [address] 46366- 9278 Apr, [facility] [address] [place] [id number] [place] [address] 54645- 8376 Apr, [facility] [address] [place] [id number] [place] [address] 01904- 8884 Apr, [facility] [address] [place] [id number] [place] [address] 31068- 4299 Apr, [facility] [place] [facility] [address] [id number] [place] [address] 1039 Apr, [facility] [place] [facility] [address] [id number] [place] [address] Mar, [facility] [place] [facility] [address] [id number] [place] [address]- 0866 Mar, [facility] [place] [facility] [address] [id number] [place] [address] Mar, [facility] [place] [facility] [address] [id number] [place] [address]- 8097 Mar, [facility] [place] [facility] [address] [id number] [place] [address]- 4869 Mar, [facility] [place] [facility] [address] [id number] [place] [address]- 4536 Mar, [facility] [place] [facility] [address] [id number] [place] [address]- 9627 Mar, [facility] [place] [facility] [address] [id number] [place] [address]- 7187 Mar, [facility] [place] [facility] [address] [id number] [place] [address]- 4255 Mar, [facility] [place] [facility] [address] [id number] [place] [address]- 7253 Mar, [facility] [place] [facility] [address] [id number] [place] [address]- 4994 Mar, [facility] [place] [facility] [address] [id number] [place] [address]- 4751 Mar, [facility] [place] [facility] [address] [id number] [place] [address]- 6772 Jan, [facility] [place] [facility] [address] [id number] [place] [address]- 8186 Jan, [facility] [place] [facility] [address] [id number] [place] [address]- 1860 Jan, [facility] [place] [facility] [address] [id number] [place] [address]- 0318 Jan, [facility] [place] [facility] [address] [id number] [place] [address]- 2236 Dec, [facility] [place] [facility] [address] [id number] [place] [address]- 5546 Dec, [facility] [place] [facility] [address] [id number] [place] [address]- 9446 August, [facility] [place] [facility] [address] [id number] [place] [address]- 8027 August, [facility] [place] [facility] [address] [id number] [place] [address]- 7121 Jun, [facility] [place] [facility] [address] [id number] [place] [address]- 2745 Jun, [facility] [place] [facility] [address] [id number] [place] [address]- 7138 Apr, [facility] [place] [facility] [address] [id number] [place] [address]- 5738 Apr, [facility] [place] [facility] [address] [id number] [place] [address]- 6542 Mar, [facility] [place] [facility] [address] [id number] [place] [address]- 8579 Mar, [facility] [place] [facility] [address] [id number] [place] [address]- 7454 Feb, [facility] [place] [facility] [address] [id number] [place] [address]- 6670 Feb, [facility] [place] [facility] [address] [id number] [place] [address]- 8676 Oct, [facility] [place] [facility] [address] [id number] [place] [address]- 6776 15 Jul, 2012 [facility] [place] [facility] [address] [facility] [id number] [place] [address]- 2516 Jul, [facility] [address] [facility] [id number] [place] [address]- 1031 Mar, [facility] [address] [facility] [id number] [place] [address]- 9076 August, IMMUNIZATIONS Vaccine Route Administration Date Status DEPO PROVERA (150 MG/ML) IM Intramuscular Dec 07, 2016 Administered SOCIAL HISTORY Never Assessed REASON FOR VISIT Transition of Care, pt. 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 has appt for well woman exam with cy to start depo again and would like to do this with you if she can get in earlier PLAN OF CARE Activity Details Follow Up 3 Months (depo) Reason: VITAL SIGNS Height 60.5 in 2016-12-07 Weight 108.5 lbs 2016-12-07 Temperature 97.8 degrees Fahrenheit 2016-12-07 Heart Rate 80 bpm 2016-12-07 Respiratory Rate 18 2016-12-07 BMI 20.84 kg/m2 2016-12-07 Blood pressure systolic 110 mmHg 2016-12-07 Blood pressure diastolic 68 mmHg 2016-12-07 MEDICATIONS Medication Instructions Dosage Frequency Start Date End Date Duration Status Depo-Provera 150 MG/ML Intramuscular q 3 months 1 ml Nov,Dec 30 day(s) Active RESULTS No Results PROCEDURES Procedure Date Ordered Result Body Site URINE TEST Dec 07, 2016 DEPO PROVERA (150 MG/ML) Dec 07, 2016 THER/PROPH/DIAG INJ, SC/IM Dec 07, 2016 INSTRUCTIONS MEDICATIONS ADMINISTERED No Known Medications MEDICAL (GENERAL) HISTORY Type Description Date Medical History Depressive disorder, not elsewhere classified Surgical History myringotomy with ventilating tube Surgical History umbilical hernia surgery 2010
--- OUTSIDE RECORDS SUMMARY | 2018-02-19 18:34 | XMS REPORT ---
Author RUBEN Oquendo [facility] eClinicalWorks Address Unknown Phone Unavailable Care Team Providers Care Debt And Budget Counselor Name Role Phone RUBEN KAISER CP Unavailable Allergies No Known Allergies Problems Problem Type Condition Code Onset Dates Condition Status Problem Surveillance of contraceptive injection Z30.42 Active Assessment Encounter for Depo-Provera contraception Z30.42 Active Problem Encounter for dental examination Z01.20 Active Medications No Known Medications Procedures Procedure Coding System Code Date DEPO PROVERA (150 MG/ML) CPT-4 J1050 October 25, 2015 THER/PROPH/DIAG INJ, SC/IM CPT-4 00345 October 25, 2015 URINE TEST CPT-4 91746 October 25, 2015 Results No Known Results Summary Purpose eClinicalWorks Submission
--- OUTSIDE RECORDS SUMMARY | 2018-02-19 18:34 | XMS REPORT ---
Author Author BATOOL DOUGLASS Organization [facility] Address [address] [place] [address] Care Team Providers Care Soccer Referee Name Role Phone BATOOL DOUGLASS Unavailable PROBLEMS Type Condition ICD9-CM Code CTY68-HT Code Onset Dates Condition Status SNOMED Code Problem Hair loss L65.9 Active [id number] ALLERGIES Substance Reaction Event Type Date Status Penicillin V Potassium anaphylaxis Drug Allergy Dec, Active ENCOUNTERS Encounter Location Date Diagnosis [place] [address] [address] Jul, Hair loss L65.9 [facility] [address] [address] May, Fatigue, unspecified type R53.83 and Family history of diabetes mellitus Z83.3 [place] [address] [address]- [address] May, Unspecified contraceptive management Z30.9 [place] [address] [place] [id number] [place] [address]229- 3901 Apr, Encounter for Depo-Provera contraception Z30.42 [facility] [address] [place] [id number] [place] [address] 24176- 4455 Apr, [facility] [address] [place] [id number] [place] [address] 75135- 1576 Feb, Encounter for Depo-Provera contraception Z30.42 [facility] [address] [place] [id number] [place] [address]75 -6572 Jan, Colitis K52.9 [facility] [address] [address]- [address] Dec, Sore throat J02.9 and Acute nasopharyngitis J00 [facility] [address], [place] [address]- 18[address] Nov, control counseling Z30.09 ; Screening for STD sexually transmitted disease Z11.3 and Encounter for Depo-Provera contraception Z30.42 [facility] [address], [place] [address]- [address] August, [facility] [address] [place] [id number] [place] [address] 77167 -8318 Jul, Screening breast examination Z12.39 [place] [address] [place] [id number] [place] [address] 26813- 8442 Jul, Encounter for Depo-Provera contraception Z30.42 [place] [address] [place] [id number] [place] [address] 28396- 9963 Apr, Encounter for Depo-Provera contraception Z30.42 [place] [address] [place] [address] 08200- 9454 Feb, Encounter for Depo-Provera contraception Z30.42 [place] [address] [place] [id number] [place] [address] 16945- 6671 Dec, Pelvic pain R10.2 [place] [address] [place] [id number] [place] [address] 53447- 6828 Oct, Encounter for immunization Z23 ; Well child check Z00.129 ; Dietary counseling Z71.3 and Exercise counseling Z71.89 [place] [address] [place] [address] 64456- 5093 Oct, Encounter for Depo-Provera contraception Z30.42 [place] [address] [place] [id number] [place] [address] 98325- 6646 Jul, Encounter for Depo-Provera contraception Z30.[address] [id number] [id number] Jun, Dental examination Z01.20 [facility] [address] [place] [address] [id number] [address] Jun, Encounter for dental examination Z01.20 [facility] [address] [place] [address] 93453- 1944 03 May, 2015 Encounter for Depo-Provera contraception Z30.42 ; Surveillance of contraceptive injection Z30.42 and Routine screening for STI ( sexually transmitted infection) Z11.3 [facility] [address] [place] [id number] [place] [address] 50776- 3802 Feb, Initiation of Depo Provera Z30.8 and Encounter for prescription for depo-Provera Z30.013 [facility] [address] [place] [id number] [place] [address] 95824- 8277 Jan, Sore throat J02.9 and Chronic tonsillitis J35.01 [facility] [address] [place] [id number] [place] [address] 98281- 3280 Oct, Routine child health exam V20.2 ; Dietary counseling and surveillance V65.3 and Exercise counseling V65.41 [facility] [address] [place] [id number] [place] [address] 99502- 8125 Jul, [facility] [address] [place] [id number] [place] [address] 15446- 1796 Jul, [facility] [address] [place] [id number] [place] [address] 19804- 1838 Apr, [facility] [address] [place] [id number] [place] [address] 18369- 9800 Apr, [facility] [address] [place] [id number] [place] [address] 18917- 7813 Apr, [facility] [address] [place] [id number] [place] [address] 28272- 4075 Apr, [facility] [address] [place] [id number] [place] [address] 54674- 0490 Apr, [facility] [place] [facility] [address] [id number] [place] [address]- 3728 Apr, [facility] [place] [facility] [address] [id number] [place] [address] Mar, [facility] [place] [facility] [address] [id number] [place] [address]- 9456 Mar, [facility] [place] [facility] [address] [id number] [place] [address] Mar, [facility] [place] [facility] [address] [id number] [place] [address]- 5306 Mar, [facility] [place] [facility] [address] [id number] [place] [address]- 9046 Mar, [facility] [place] [facility] [address] [id number] [place] [address]- 5430 Mar, [facility] [place] [facility] [address] [id number] [place] [address]- 8929 Mar, [facility] [place] [facility] [address] [id number] [place] [address]- 8868 Mar, [facility] [place] [facility] [address] [id number] [place] [address]- 2639 Mar, [facility] [place] [facility] [address] [id number] [place] [address]- 1782 Mar, [facility] [place] [facility] [address] [id number] [place] [address]- 5909 Mar, [facility] [place] [facility] [address] [id number] [place] [address]- 1353 Mar, [facility] [place] [facility] [address] [id number] [place] [address]- 8453 Jan, [facility] [place] [facility] [address] [id number] [place] [address]- 0081 Jan, [facility] [place] [facility] [address] [id number] [place] [address]- 4379 Jan, [facility] [place] [facility] [address] [id number] [place] [address]- 1791 Jan, [facility] [place] [facility] [address] [id number] [place] [address]- 8646 Dec, [facility] [place] [facility] [address] [id number] [place] [address]- 9046 Dec, [facility] [place] [facility] [address] [id number] [place] [address]- 2706 August, [facility] [place] [facility] [address] [id number] [place] [address]- 3985 August, [facility] [place] [facility] [address] [id number] [place] [address]- 1736 Jun, [facility] [place] [facility] [address] [id number] [place] [address]- 7409 Jun, [facility] [place] [facility] [address] [id number], [place] [address]- 1456 Apr, [facility] [place] [facility] [address] [id number] [place] [address]- 9932 Apr, [facility] [place] [facility] [address] [id number], [place] [address]- 2982 Mar, [facility] [place] [facility] [address] [id number], [place] [address]- 0302 Mar, [facility] [place] [facility] [address] [id number], [place] [address]- 2106 Feb, [facility] [place] [facility] [address] [id number] [place] [address]- 3787 Feb, [facility] [place] [facility] [address] [id number], [place] [address]- 7846 Oct, [facility] [place] [facility] [address] [id number], [place] [address]- 5696 15 Jul, 2012 [facility] [place] [facility] [address] [facility] [id number] [place] [address]- 0366 Jul, [facility] [address] [facility] [id number] [place] [address]- 0093 Mar, [facility] [address] [facility] [id number] [place] [address]- 4[address] August, IMMUNIZATIONS No Known Immunizations SOCIAL HISTORY Never Assessed REASON FOR VISIT Sore throat x 3 days. No known fever. Feels hot at times-WHITNEY Lamas PLAN OF CARE Activity Details Follow Up prn Reason: VITAL SIGNS Height 60.5 in 2016-12-25 Weight 110 lbs 2016-12-25 Temperature 98.3 degrees Fahrenheit 2016-12-25 Heart Rate 88 bpm 2016-12-25 Respiratory Rate 16 2016-12-25 BMI 21.13 kg/m2 2016-12-25 Blood pressure systolic 100 mmHg 2016-12-25 Blood pressure diastolic 60 mmHg 2016-12-25 MEDICATIONS Medication Instructions Dosage Frequency Start Date End Date Duration Status Depo-Provera 150 MG/ML Intramuscular q 3 months 1 ml Nov,Dec 30 day(s) Active Hydrocodone-Acetaminophen 5-325 MG Orally every 6 hrs 1 tablet as needed 6h Active RESULTS Name Result Date Reference Range STREP A (IN HOUSE) 2016-12-25 STREP A negative Control + Lot # [id number] Exp date 12/2017 PROCEDURES Procedure Date Ordered Result Body Site STREP A ASSAY W/OPTIC Dec 25, 2016 INSTRUCTIONS MEDICATIONS ADMINISTERED No Known Medications MEDICAL (GENERAL) HISTORY Type Description Date Medical History Depressive disorder, not elsewhere classified Surgical History myringotomy with ventilating tube Surgical History umbilical hernia surgery 2010
--- OUTSIDE RECORDS SUMMARY | 2018-02-19 18:34 | XMS REPORT ---
Author Author CARIE MARIE [facility] eClinicalWorks Address Unknown Phone Unavailable Care Team Providers Care Urology Nurse Name Role Phone CARIE MARIE Unavailable Allergies, Adverse Reactions, Alerts Substance Reaction Event Type Penicillin V Potassium Info Not Available Drug Allergy Problems Problem Type Condition Code Onset Dates Condition Status Assessment Surveillance of contraceptive injection Z30.42 Active Assessment Encounter for Depo-Provera contraception Z30.42 Active Problem Surveillance of contraceptive injection Z30.42 Active Assessment Routine screening for STI (sexually transmitted infection) Z11.3 Active Medications Medication Code System Code Instructions Start Date End Date Status Dosage Depo-Provera [facility] [address]-41 150 MG/ML Intramuscular x1 Mar 03, 2015 Feb 26, 2016 1 ml Procedures Procedure Coding System Code Date CHYLMD TRACH, DNA, AMP PROBE CPT-4 25800 May 19, 2015 N.GONORRHOEAE, DNA, AMP PROB CPT-4 85217 May 19, 2015 URINE TEST CPT-4 77903 May 19, 2015 DEPO PROVERA (150 MG/ML) CPT-4 J1050 May 19, 2015 Office Visit, Est Pt., Level 3 CPT-4 85124 May 19, 2015 THER/PROPH/DIAG INJ, SC/IM CPT-4 17581 May 19, 2015 Vital Signs Date/Time: May 19, 2015 Temperature 98.8 F BMIPercentile 38.03 % Weight 104.6 lbs Height 61 in BMI 19.76 Index Blood Pressure Diastolic 62 mmHg Blood Pressure Systolic 98 mmHg Cardiac Monitoring Heart Rate 84 bpm Wt Percentile 17.32 % Ht Percentile 11.43 % Results Name Result Date Reference Range Unit Abnormality Flag TEST, URINE (IN HOUSE) ----RESULTS negative [id number] ----Lot # [id number] ----Control + [id number] ----Exp date 20150519 Summary Purpose [employer] Submission
--- OUTSIDE RECORDS SUMMARY | 2018-02-19 18:34 | XMS REPORT ---
Author Author OSMAR JAMES Organization [employer] Address Unknown Phone Unavailable Care Team Providers Care Airway Traffic Controller Name Role Phone OSMAR JAMES Unavailable Allergies, Adverse Reactions, Alerts Substance Reaction Event Type Penicillin V Potassium Info Not Available Drug Allergy Problems Problem Type Condition Code Onset Dates Condition Status Assessment Chronic tonsillitis J35.01 Active Assessment Sore throat J02.9 Active Medications Medication Code System Code Instructions Start Date End Date Status Dosage Loestrin Fe 05/05 [facility] [address]-76 20-75-1 MCG-MG-MG Orally Once a day 1 tablet Doxycycline Hyclate [facility] [address]-03 100 MG Orally Once a day 1 capsule Procedures Procedure Coding System Code Date HETEROPHILE ANTIBODIES CPT-4 11679 Jan 20, 2015 Office Visit, Est Pt., Level 3 CPT-4 69015 Jan 20, 2015 STREP A ASSAY W/OPTIC CPT-4 90265 Jan 20, 2015 Vital Signs Date/Time: Jan 20, 2015 Temperature 98.3 F BMIPercentile 26.1 % Weight 99lbs 6oz lbs Height 61 in BMI 18.77 Index Blood Pressure Diastolic 80 mmHg Blood Pressure Systolic 110 mmHg Cardiac Monitoring Heart Rate 80 bpm Wt Percentile 10.46 % Ht Percentile 11.84 % Results Name Result Date Reference Range Unit Abnormality Flag MONO TEST (IN HOUSE) Summary Purpose [employer] Submission
--- OUTSIDE RECORDS SUMMARY | 2018-02-19 18:34 | XMS REPORT ---
Author Author CAITLIN ANTHONY [facility] eClinicalWorks Address Unknown Phone Unavailable Care Team Providers Care Microelectronics Engineer Name Role Phone CAITLIN ANTHONY CP Unavailable Allergies, Adverse Reactions, Alerts Substance Reaction Event Type Penicillin V Potassium Info Not Available Drug Allergy Problems Problem Type Condition Code Onset Dates Condition Status Assessment Encounter for prescription for depo-Provera Z30.013 Active Assessment Initiation of Depo Provera Z30.8 Active Medications Medication Code System Code Instructions Start Date End Date Status Dosage Depo-Provera [facility] [id number] 150 MG/ML Intramuscular x1 Mar 03, 2015 Feb 26, 2016 1 ml Procedures Procedure Coding System Code Date DEPO PROVERA (150 MG/ML) CPT-4 J1050 Mar 03, 2015 THER/PROPH/DIAG INJ, SC/IM CPT-4 88220 Mar 03, 2015 URINE TEST CPT-4 87658 Mar 03, 2015 Office Visit, Est Pt., Level 3 CPT-4 62417 Mar 03, 2015 Vital Signs Date/Time: Mar 03, 2015 Temperature 98.0 F BMIPercentile 36.41 % Weight 103.6 lbs Height 61 in BMI 19.57 Index Blood Pressure Diastolic 60 mmHg Blood Pressure Systolic 90 mmHg Cardiac Monitoring Heart Rate 72 bpm Wt Percentile 16.45 % Ht Percentile 11.62 % Results Name Result Date Reference Range Unit Abnormality Flag TEST, URINE (IN HOUSE) Summary Purpose eClinicalWorks Submission
--- OUTSIDE RECORDS SUMMARY | 2018-02-19 18:34 | XMS REPORT ---
Author Author PEPE QUINN Organization [facility] Address [address] [place] [address] Care Team Providers Care Head Doffer Name Role Phone PEPE QUINN Unavailable PROBLEMS Type Condition ICD9-CM Code CXE01-PQ Code Onset Dates Condition Status SNOMED Code Problem Surveillance of contraceptive injection Z30.42 Active 753115530 Assessment Pelvic pain R10.2 Dec, Active 76304837 ALLERGIES Substance Reaction Event Type Date Status Penicillin V Potassium anaphylaxis Drug Allergy Dec, Active SOCIAL HISTORY No smoking Hx information available PLAN OF CARE VITAL SIGNS Height 60.4 in 2015-12-22 Weight 105.2 lbs 2015-12-22 Heart Rate 70 bpm 2015-12-22 Respiratory Rate 18 2015-12-22 BMI 20.27 kg/m2 2015-12-22 Blood pressure systolic 102 mmHg 2015-12-22 Blood pressure diastolic 68 mmHg 2015-12-22 MEDICATIONS Medication Instructions Dosage Frequency Start Date End Date Duration Status Depo-Provera 150 MG/ML Intramuscular x1 1 ml Feb, Feb, 90 days Active RESULTS Name Result Date Reference Range TEST, URINE (IN HOUSE) 2015-12-22 RESULTS negative Lot # [id number] Control + Exp date 06/2017 PROCEDURES Procedure Date Ordered Related Diagnosis Body Site URINE TEST Dec 22, 2015 Office Visit, Est Pt., Level 3 Dec 22, 2015 IMMUNIZATIONS No Known Immunizations
--- OUTSIDE RECORDS SUMMARY | 2018-02-19 18:34 | XMS REPORT ---
Author RUBEN Oquendo [facility] eClinicalWorks Address Unknown Phone Unavailable Care Team Providers Care Dynamite Reclaimer Name Role Phone RUBEN KAISER CP Unavailable Allergies No Known Allergies Problems Problem Type Condition Code Onset Dates Condition Status Problem Surveillance of contraceptive injection Z30.42 Active Assessment Encounter for Depo-Provera contraception Z30.42 Active Problem Encounter for dental examination Z01.20 Active Medications No Known Medications Procedures Procedure Coding System Code Date DEPO PROVERA (150 MG/ML) CPT-4 J1050 August 06, 2015 THER/PROPH/DIAG INJ, SC/IM CPT-4 86093 August 06, 2015 URINE TEST CPT-4 48227 August 06, 2015 Results Name Result Date Reference Range Unit Abnormality Flag TEST, URINE (IN HOUSE) ----RESULTS negative [id number] ----Lot # [id number] ----Control + [id number] ----Exp date [id number] Summary Purpose eClinicalWorks Submission
--- OUTSIDE RECORDS SUMMARY | 2018-02-19 18:34 | XMS REPORT ---
Author Author DAVE LUTZ Organization [facility] Address [address] [place] [address] Care Team Providers Care Hoop Expander Name Role Phone DAVE LUTZ Unavailable PROBLEMS Type Condition ICD9-CM Code MCC29-ZO Code Onset Dates Condition Status SNOMED Code Problem Hair loss L65.9 Active 962372039 Problem Current moderate episode of major depressive disorder, unspecified whether recurrent F32.1 Active 57874846 Problem Pain of left hand M79.642 Active 630045840786187 Problem Pain in left wrist M25.532 Active 509184952958757 Problem Pain in right hand M79.641 Active 02482954992495911 Problem Bilateral elbow tendonitis M77.8 Active 17809590247978506 Problem Pain in right wrist M25.531 Active 74730835734109684 ALLERGIES Substance Reaction Event Type Date Status Penicillin V Potassium anaphylaxis Drug Allergy May, Active ENCOUNTERS Encounter Location Date Diagnosis [facility] [id number] [place] [address]409[address] 4089 Oct, [facility] [address] [place] [address]393- 5157 Oct, [facility] [id number] [place] [address] 63594- 7311 Sep, Current moderate episode of major depressive disorder, unspecified whether recurrent F32.1 [facility] [id number] [place] [address] 83646- 8143 Sep, Current moderate episode of major depressive disorder, unspecified whether recurrent F32.1 [facility] [id number] [place] [address] 71894- 7382 August, Current moderate episode of major depressive disorder, unspecified whether recurrent F32.1 [place] [id number] [place] [address] 75645- 6363 August, Pain of left hand M79.642 and Pain in right hand M79.641 [place] [address] 15673- 7009 August, Pain of left hand M79.642 ; Pain in right hand M79.641 ; Pain in left wrist M25.532 ; Pain in right wrist M25.531 and Bilateral elbow tendonitis M77.8 [place] [address] [address]- [address]853 Jul, Hair loss L65.9 [place] [address] 46[address]- [address] 28 May, 2017 Fatigue, unspecified type R53.83 and Family history of diabetes mellitus Z83.3 [place] [address] [address]- 8058 May, Unspecified contraceptive management Z30.9 [place] [id number] [place] [address] 12837- 5676 Apr, Encounter for Depo-Provera contraception Z30.42 [place] [id number] [place] [address] 89860- 8412 Apr, [place] [id number] [place] [address] 54783- 2209 Feb, Encounter for Depo-Provera contraception Z30.42 [facility] [id number] [place] [address] 59587 -6627 Jan, Colitis K52.9 [place] [address] 15003- 8918 11 Dec, 2016 Sore throat J02.9 and Acute nasopharyngitis J00 [place] [address] [address]36- [address]21 Nov, control counseling Z30.09 ; Screening for STD sexually transmitted disease Z11.3 and Encounter for Depo-Provera contraception Z30.42 [facility] [address] [address] August, [facility] [address] [address] Jul, Screening breast examination Z12.39 [facility] [address] [place] [address] 27474- 5286 Jul, Encounter for Depo-Provera contraception Z30.42 [facility] [address] [place] [address] 65451- 4912 Apr, Encounter for Depo-Provera contraception Z30.42 [place] [address] [place] [address] 19957- 6404 Feb, Encounter for Depo-Provera contraception Z30.42 [facility] [address] [place] [address] 07713- 0198 Dec, Pelvic pain R10.2 [facility] [address] [place] [address] 43016- 4799 Oct, Well child check Z00.129 ; Encounter for immunization Z23 ; Dietary counseling Z71.3 and Exercise counseling Z71.89 [facility] [address] [address] Oct, Encounter for Depo-Provera contraception Z30.42 [facility] [address] [address] Jul, Encounter for Depo-Provera contraception Z30.42 [facility] [address] [id number] [id number] Jun, Dental examination Z01.20 [facility] [address] [id number] [id number] Jun, Encounter for dental examination Z01.20 [facility] [id number] [address] 03 May, 2015 Surveillance of contraceptive injection Z30.42 ; Encounter for Depo-Provera contraception Z30.42 and Routine screening for STI (sexually transmitted infection) Z11.3 [place] [id number] [place] [address] 46737- 8716 Feb, Initiation of Depo Provera Z30.8 and Encounter for prescription for depo-Provera Z30.013 [place] [id number] [place] [address] 69383- 6646 Jan, Sore throat J02.9 and Chronic tonsillitis J35.01 [place] [id number] [place] [address] 78589- 4862 Oct, Routine child health exam V20.2 ; Dietary counseling and surveillance V65.3 and Exercise counseling V65.41 [place] [id number] [place] [address] 93775- 9300 Jul, [place] [id number] [place] [address] 90738- 0729 Jul, [place] [id number] [place] [address] 89677- 9007 Apr, [place] [id number] [place] [address] 95461- 9776 Apr, [place] [id number] [place] [address] 09121- 0691 Apr, [place] [id number] [place] [address] 71293- 0499 Apr, [place] [id number] [place] [address] 60042- 8591 Apr, [facility] [id number] [place] [address] 06136- 5218 Apr, [facility] [id number] [place] [address] 61047- 9063 Mar, [facility] [place] [facility] [address] [id number] [place] [address]- 8810 30 Mar, 2014 [facility] [place] [facility] [address] [id number] [place] [address]- 9302 Mar, [facility] [place] [facility] [address] [id number] [place] [address]- 7419 Mar, [facility] [place] [facility] [address] [id number] [place] [address]- 6186 Mar, [facility] [place] [facility] [address] [id number] [place] [address]- 5167 Mar, [facility] [place] [facility] [address] [id number] [place] [address]- 8639 Mar, [facility] [place] [facility] [address] [id number] [place] [address]- 7880 Mar, [facility] [place] [facility] [address] [id number] [place] [address]- 5308 Mar, [facility] [place] [facility] [address] [id number] [place] [address]- 4962 Mar, [facility] [place] [facility] [address] [id number] [place] [address]- 1367 Mar, [facility] [place] [facility] [address] [id number] [place] [address]- 7428 Mar, [facility] [place] [facility] [address] [id number] [address] 0051 Jan, [facility] [place] [facility] [address] [id number] [place] [address]- 4584 Jan, [facility] [place] [facility] [address] [id number] [place] [address]- 4232 Jan, [facility] [place] [facility] [address] [id number] [place] [address] Jan, [facility] [place] [facility] [address] [id number] [place] [address]- 2387 Dec, [facility] [address] [id number] [place] [address]- 6900 Dec, [facility] [place] [facility] [address] [id number] [place] [address]- 6741 August, [facility] [address] [id number] [place] [address]- 2326 August, [facility] [place] [facility] [address] [id number] [place] [address]- 6782 Jun, [facility] [place] [facility] [address] [id number] [place] [address]- 4504 Jun, [facility] [place] [facility] [address] [id number] [place] [address]- 2881 Apr, [facility] [address] [id number] [place] [address]- 5891 Apr, [facility] [address] [id number] [place] [address]- 0432 Mar, [facility] [address] [id number] [place] [address]- 7146 Mar, [facility] [address] [id number] [place] [address]- 4686 14 Feb, 2013 [facility] [place] [facility] [address] [id number] [place] [address]- 3936 14 Feb, 2013 [facility] [place] [facility] [address] [id number] [place] [address]- 3101 Oct, [facility] [place] [facility] [address] [id number] [place] [address]- 5687 15 Jul, 2012 [facility] [place] [facility] [address] [id number] [place] [address]- 8241 Jul, [facility] [place] [facility] [address] [id number] [place] [address]- 9194 13 Mar, 2011 [facility] [place] [facility] [address] [facility] [id number] [place] [address] August, IMMUNIZATIONS No Known Immunizations SOCIAL HISTORY Never Assessed REASON FOR VISIT control consult, Pt has been on depo shot for a long time. WOuld like to switch to an oral pill that might help with acne -WHITNEY Lamas PLAN OF CARE Activity Details Follow Up 1 Year Reason: VITAL SIGNS Height 60.5 in 2017-06-07 Weight 114 lbs 2017-06-07 Temperature 98 degrees Fahrenheit 2017-06-07 Heart Rate 90 bpm 2017-06-07 Respiratory Rate 16 2017-06-07 BMI 21.90 kg/m2 2017-06-07 Blood pressure systolic 110 mmHg 2017-06-07 Blood pressure diastolic 60 mmHg 2017-06-07 MEDICATIONS Medication Instructions Dosage Frequency Start Date End Date Duration Status Ortho Tri-Cyclen (28) 0.18/0.215/0.25 MG-35 MCG Orally Once a day 1 tablet 24h May, 28 day(s) Active Acidophilus 100 mg Orally Once a day 1 capsule 24h Jan, Not- Taking Hydrocodone-Acetaminophen 5-325 MG Orally every 6 hrs 1 tablet as needed 6h Not-Taking Accutane 1 tab Not-Taking Doxycycline 40 MG Orally Once a day 1 capsule on an empty stomach in the morning 24h Active Depo-Provera 150 MG/ML 1 ml Active RESULTS Name Result Date Reference Range TEST, URINE (IN HOUSE) 2017-06-07 RESULTS negative Lot # [id number] Control + Exp date 08/2018 PROCEDURES Procedure Date Ordered Result Body Site URINE TEST Jun 07, 2017 INSTRUCTIONS MEDICATIONS ADMINISTERED No Known Medications MEDICAL (GENERAL) HISTORY Type Description Date Medical History Depressive disorder, not elsewhere classified Surgical History myringotomy with ventilating tube Surgical History umbilical hernia surgery 2010
--- OUTSIDE RECORDS SUMMARY | 2018-02-19 18:34 | XMS REPORT ---
Author Author RUBEN KAISER [facility] Address [address] [place] [address] Care Team Providers Care Membership Administrator Name Role Phone RUBEN KAISER Unavailable PROBLEMS Type Condition ICD9-CM Code XQG09-CA Code Onset Dates Condition Status SNOMED Code Problem Surveillance of contraceptive injection Z30.42 Active 469974154 ALLERGIES No Known Allergies SOCIAL HISTORY No smoking Hx information available PLAN OF CARE VITAL SIGNS MEDICATIONS No Known Medications RESULTS No Results PROCEDURES Procedure Date Ordered Related Diagnosis Body Site DEPO PROVERA (150 MG/ML) May 08, 2016 THER/PROPH/DIAG INJ, SC/IM May 08, 2016 IMMUNIZATIONS Vaccine Route Administration Date Status DEPO PROVERA (150 MG/ML) IM Intramuscular May 08, 2016 Administered
--- OUTSIDE RECORDS SUMMARY | 2018-02-19 18:35 | XMS REPORT | Continuity of Care Document ---
Author Author Formerly [facility], 1928–1983 Ctr of [facility] C[facility] of [facility] Address Unknown Phone Unavailable Allergies Active Description Code Type Severity Reaction Onset Reported/Identified Relationship to Patient Clinical Status Yes NO KNOWN DRUG ALLERGIES NO KNOWN DRUG ALLERG UNKNOWN Yes PENICILLINS PENICILLINS SEVERE Yes PENICILLINS SEVERE RESPIRATORY - WHEEZI Yes Penicillins Drug Allergy 01/12/2009 Yes Penicillins Drug Allergy N/A N/A 01/12/2009 Medications There is no data. Problems Date Dx Coded Attending Type Code Diagnosis Diagnosed By 01/12/2009 553.1 Umbilical Hernia 01/12/2009 V05.4 Varicella, Chickenpox 01/12/2009 V20.2 Preventive Medicine New Patient Evaluation Childhood -01/12/2009 553.1 Umbilical Hernia 01/12/2009 V05.4 Varicella, Chickenpox 01/12/2009 V20.2 Preventive Medicine New Patient Evaluation Childhood -01/12/2009 HELENA ROSS, JUAN PABLO 553.1 Umbilical Hernia 01/12/2009 HELENA ROSS, JUAN PABLO V05.4 Varicella, Chickenpox 01/12/2009 HELENA ROSS, JUAN PABLO V20.2 Preventive Medicine New Patient Evaluation Childhood -01/12/2009 HELENA ROSS, JUAN PABLO 553.1 Umbilical Hernia 01/12/2009 HELENA ROSS, JUAN PABLO V05.4 Varicella, Chickenpox 01/12/2009 HELENA ROSS, JUAN PABLO V20.2 Preventive Medicine New Patient Evaluation Childhood -01/12/2009 HELENA ROSS, JUAN PABLO 553.1 Umbilical Hernia 01/12/2009 HELENA ROSS, JUAN PABLO V05.4 Varicella, Chickenpox 01/12/2009 HELENA ROSS, JUAN PABLO V20.2 Preventive Medicine New Patient Evaluation Childhood -01/12/2009 HELENA ROSS, JUAN PABLO 553.1 Umbilical Hernia 01/12/2009 HELENA ROSS, JUAN PABLO V05.4 Varicella, Chickenpox 01/12/2009 HELENA ROSS, JUAN PABLO V20.2 Preventive Medicine New Patient Evaluation Childhood 5-01/12/2009 NILDA APRN, DONALD A 553.1 Umbilical Hernia 01/12/2009 NILDA HAND MOLDER MEAT, DONALD A V05.4 Varicella, Chickenpox 01/12/2009 NILDA HAND MOLDER MEAT, DONALD A V20.2 Preventive Medicine New Patient Evaluation Childhood -01/12/2009 AUSTEN GRAVEL MACHINE OPERATOR, DARIUS B 553.1 Umbilical Hernia 01/12/2009 AUSTEN GRAVEL MACHINE OPERATOR, DARIUS B V05.4 Varicella, Chickenpox 01/12/2009 AUSTEN GRAVEL MACHINE OPERATOR, DARIUS B V20.2 Preventive Medicine New Patient Evaluation Childhood -01/12/2009 HELENA ROSS, JUAN PABLO 553.1 Umbilical Hernia 01/12/2009 HELENA ROSS, JUAN PABLO V05.4 Varicella, Chickenpox 01/12/2009 HELENA ROSS, JUAN PABLO V20.2 Preventive Medicine New Patient Evaluation Childhood -01/12/2009 NILDATIFF SHAW, DONALD A 553.1 Umbilical Hernia 01/12/2009 KYLIE MUNGUIA APRNIDI A V05.4 Varicella, Chickenpox 01/12/2009 NILDA APRN, DONALD A V20.2 Preventive Medicine New Patient Evaluation Childhood -01/12/2009 HELENA ROSS, JUAN PABLO 553.1 Umbilical Hernia 01/12/2009 HELENA ROSS, JUAN PABLO V05.4 Varicella, Chickenpox 01/12/2009 HELENA ROSS, JUAN PABLO V20.2 Preventive Medicine New Patient Evaluation Childhood 5-01/12/2010 132.0 Pediculus Capitis [head Louse] 01/12/2010 V03.89 Meningococcal Vaccine 01/12/2010 132.0 Pediculus Capitis [head Louse] 01/12/2010 V03.89 Meningococcal Vaccine 01/12/2010 HELENA ROSS, JUAN PABLO 132.0 Pediculus Capitis [head Louse] 01/12/2010 HELENA ROSS, JUAN PABLO V03.89 Meningococcal Vaccine 01/12/2010 HELENA ROSS, JUAN PABLO 132.0 Pediculus Capitis [head Louse] 01/12/2010 HELENA ROSS, JUAN PABLO V03.89 Meningococcal Vaccine 01/12/2010 HELENA ROSS, JUAN PABLO 132.0 Pediculus Capitis [head Louse] 01/12/2010 HELENA ROSS, JUAN PABLO V03.89 Meningococcal Vaccine 01/12/2010 HELENA ROSS, JUAN PABLO 132.0 Pediculus Capitis [head Louse] 01/12/2010 HELENA ROSS, JUAN PABLO V03.89 Meningococcal Vaccine 01/12/2010 DONALD MUNGUIA APRN A 132.0 Pediculus Capitis [head Louse] 01/12/2010 NILDA SHAW, DONALD A V03.89 Meningococcal Vaccine 01/12/2010 DARIUS BOYCE LCPC B 132.0 Pediculus Capitis [head Louse] 01/12/2010 DARIUS BOYCE LCPC B V03.89 Meningococcal Vaccine 01/12/2010 HELENA ROSS, JUAN PABLO 132.0 Pediculus Capitis [head Louse] 01/12/2010 HELENA ROSS, JUAN PABLO V03.89 Meningococcal Vaccine 01/12/2010 NILDA SHAW, DONALD A 132.0 Pediculus Capitis [head Louse] 01/12/2010 DONALD MUNGUIA APRN A V03.89 Meningococcal Vaccine 01/12/2010 HELENA ROSS, JUAN PABLO 132.0 Pediculus Capitis [head Louse] 01/12/2010 HELENA ROSS, JUAN PABLO V03.89 Meningococcal Vaccine 08/25/2010 V05.8 GARDASIL 08/25/2010 V05.8 GARDASIL 08/25/2010 HELENA ROSS, JUAN PABLO V05.8 GARDASIL 08/25/2010 HELENA ROSS, JUAN PABLO V05.8 GARDASIL 08/25/2010 HELENA ROSS, JUAN PABLO V05.8 GARDASIL 08/25/2010 HELENA ROSS, JUAN PABLO V05.8 GARDASIL 08/25/2010 DONALD MUNGUIA APRN A V05.8 GARDASIL 08/25/2010 AZUCENA BOYCE LCPCLEY B V05.8 GARDASIL 08/25/2010 HELENA ROSS, JUAN PABLO V05.8 GARDASIL 08/25/2010 DONALD MUNGUIA APRN A V05.8 GARDASIL 08/25/2010 HELENA ROSS, JUAN PABOL V05.8 GARDASIL 10/19/2010 V03.89 MENINGOCOCCAL DX 10/19/2010 V06.1 TDAP DX 10/19/2010 V03.89 MENINGOCOCCAL DX 10/19/2010 V06.1 TDAP DX 10/19/2010 HELENA ROSS, JUAN PABLO V03.89 MENINGOCOCCAL DX 10/19/2010 HELENA ROSS, JUAN PABLO V06.1 TDAP DX 10/19/2010 HELENA RSOS, JUAN PABLO V03.89 MENINGOCOCCAL DX 10/19/2010 HELENA ROSS, JUAN PABLO V06.1 TDAP DX 10/19/2010 HELENA ROSS, JUAN PABLO V03.89 MENINGOCOCCAL DX 10/19/2010 HELENA ROSS, JUAN PABLO V06.1 TDAP DX 10/19/2010 HELENA ROSS, JUAN PABLO V03.89 MENINGOCOCCAL DX 10/19/2010 HELENA ROSS, JUAN PABLO V06.1 TDAP DX 10/19/2010 NILDA HAND MOLDER MEAT, DONALD A V03.89 MENINGOCOCCAL DX 10/19/2010 NILDA HAND MOLDER MEAT, DONALD A V06.1 TDAP DX 10/19/2010 AUSTEN GRAVEL MACHINE OPERATOR, DARIUS B V03.89 MENINGOCOCCAL DX 10/19/2010 AUSTEN GRAVEL MACHINE OPERATOR, DARIUS B V06.1 TDAP DX 10/19/2010 HELENA ROSS, JUAN PABLO V03.89 MENINGOCOCCAL DX 10/19/2010 HELENA ROSS, JUAN PABLO V06.1 TDAP DX 10/19/2010 NILDA HAND MOLDER MEAT, DONALD A V03.89 MENINGOCOCCAL DX 10/19/2010 NILDA HAND MOLDER MEAT, DONALD A V06.1 TDAP DX 10/19/2010 HELENA ROSS, JUAN PABLO V03.89 MENINGOCOCCAL DX 10/19/2010 HELENA ROSS, JUAN PABLO V06.1 TDAP DX 07/29/2012 V04.89 GARDASIL (HPV ) DX 07/29/2012 V04.89 GARDASIL (HPV ) DX 07/29/2012 HELENA ROSS, JUAN PABLO V04.89 GARDASIL (HPV) DX 07/29/2012 HELENA ROSS, JUAN PABLO V04.89 GARDASIL (HPV) DX 07/29/2012 HELENA ROSS, JUAN PABLO V04.89 GARDASIL (HPV) DX 07/29/2012 HELENA ROSS, JUAN PABLO V04.89 GARDASIL (HPV) DX 07/29/2012 DONALD MUNGUIA APRN A V04.89 GARDASIL (HPV) DX 07/29/2012 DARIUS BOYCE LCPC V04.89 GARDASIL (HPV) DX 07/29/2012 HELENA ROSS, JUAN PABLO V04.89 GARDASIL (HPV) DX 07/29/2012 DONALD MUNGUIA APRN A V04.89 GARDASIL (HPV) DX 07/29/2012 HELENA ROSS, JUAN PABLO V04.89 GARDASIL (HPV) DX 10/15/2012 706.1 ACNE 10/15/2012 HELENA ROSS, JUAN PABLO 706.1 ACNE 10/15/2012 HELENA ROSS, JUAN PABLO 706.1 ACNE 10/15/2012 HELENA ROSS, JUAN PABLO 706.1 ACNE 10/15/2012 HELENA ROSS, JUAN PABLO 706.1 ACNE 10/15/2012 DONALD MUNGUIA APRN A 706.1 ACNE 10/15/2012 DARIUS BOYCE LCPC B 706.1 ACNE 10/15/2012 HELENA ROSS, JUAN PABLO 706.1 ACNE 10/15/2012 DONALD MUNGUIA APRN A 706.1 ACNE 10/15/2012 HELENA ROSS, JUAN PABLO 706.1 ACNE 02/27/2013 HELENA ROSS, JUAN PABLO 719.46 joint pain in both knees 02/27/2013 HELENA ROSS JUAN PABLO 719.46 joint pain in both knees 02/27/2013 HELENA ROSS JUAN PABLO 719.46 joint pain in both knees 02/27/2013 HELENA ROSS, JUAN PABLO 719.46 joint pain in both knees 02/27/2013 DONALD MUNGUIA APRN A 719.46 joint pain in both knees 02/27/2013 DARIUS BOYCE LCPC 719.46 joint pain in both knees 02/27/2013 HELENA ROSS, JUAN PABLO 719.46 joint pain in both knees 02/27/2013 DONALD MUNGUIA APRN A 719.46 joint pain in both knees 02/27/2013 HELENA ROSS, JUAN PABLO 719.46 joint pain in both knees 08/15/2013 HELENA ROSS, JUAN PABLO V58.69 MEDICATION HIGH RISK 08/15/2013 DONALD MUNGUIA APRN A V58.69 MEDICATION HIGH RISK 08/15/2013 DARIUS BOYCE LCPC V58.69 MEDICATION HIGH RISK 08/15/2013 HELENA ROSS, JUAN PABLO V58.69 MEDICATION HIGH RISK 08/15/2013 DONALD MUNGUIA APRN A V58.69 MEDICATION HIGH RISK 08/15/2013 HELENA ROSS, JUAN PABLO V58.69 MEDICATION HIGH RISK 01/07/2014 DONALD MUNGUIA APRN A V25.01 CONTRACEPTION - ORAL CONTRACEPTION 01/07/2014 DONALD MUNGUIA APRN A V74.5 STD SCREEN 01/07/2014 DARIUS BOYCE LCPC V25.01 CONTRACEPTION - ORAL CONTRACEPTION 01/07/2014 DARIUS BOYCE LCPC V74.5 STD SCREEN 01/07/2014 HELENA ROSS, JUAN PABLO V25.01 CONTRACEPTION - ORAL CONTRACEPTION 01/07/2014 HELENA ROSS, JUAN PABLO V74.5 STD SCREEN 01/07/2014 DONALD MUNGUIA APRN A V25.01 CONTRACEPTION - ORAL CONTRACEPTION 01/07/2014 DONALD MUNGUIA APRN A V74.5 STD SCREEN 01/07/2014 HELENA ROSS, JUAN PABLO V25.01 CONTRACEPTION - ORAL CONTRACEPTION 01/07/2014 HELENA ROSS, JUAN PABLO V74.5 STD SCREEN 02/11/2014 DARIUS BOYCE LCPC B 311 DEPRESSIVE DISORDER NOS 02/11/2014 JUAN PABLO MALIK MD 311 DEPRESSIVE DISORDER NOS 02/11/2014 DONALD MUNGUIA APRN A 311 DEPRESSIVE DISORDER NOS 02/11/2014 JUAN PABLO MALIK MD 311 DEPRESSIVE DISORDER NOS 08/10/2016 Con Ramirez 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 08/10/2016 Con Ramirez 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 Procedures Code Description [place] [address] PURE TONE HEARING TEST AIR 03/03/2013 PHYSICAL PHYSICAL THERAPY, VIA MALENA 03/03/2013 79295 TEST, URINE (IN- HOUSE) 08/15/2013 55980 TEST, URINE (IN- HOUSE) 01/07/2014 35519 PSYCH DIAGNOSTIC EVALUATION 02/11/2014 [facility], DERMATOLOGY 03/19/2014 45282 PSYTX PT&/FAMILY 45 MINUTES 04/02/2014 88696 TEST, URINE (IN- HOUSE) 04/02/2014 Results Test Result Range TSH - 06/13/17 10:29 TSH 1.77 mIU/L NRG THYROID ANALYZER - 07/23/17 14:53 TSH 1.02 mIU/L NRG A1C - 07/23/17 14:53 HEMOGLOBIN A1c 4.7 % of total Hgb <5.7 Encounters ACCT No. Visit Date/Time Discharge Status Pt. Type Provider Facility Loc./Unit Complaint [id number] 04/14/2014 09:13:00 04/14/2014 23:59:59 CLS Outpatient JUAN PABLO MALIK MD [id number] 04/02/2014 16:54:00 04/02/2014 23:59:59 CLS Outpatient DONALD MUNGUIA APRN [id number] 03/19/2014 16:16:00 03/19/2014 23:59:59 CLS Outpatient JUAN PABLO MALIK MD [id number] 02/11/2014 14:57:00 02/11/2014 23:59:59 CLS Outpatient DARIUS BOYCE LCPC [id number] 01/07/2014 11:24:00 01/07/2014 23:59:59 CLS Outpatient DONALD MUNGUIA APRN [id number] 08/15/2013 14:04:00 08/15/2013 23:59:59 CLS Outpatient JUAN PABLO MALIK MD [id number] 05/02/2013 09:10:00 05/02/2013 23:59:59 CLS Outpatient JUAN PABLO MALIK MD [id number] 03/28/2013 15:13:00 03/28/2013 23:59:59 CLS Outpatient JUAN PABLO MALIK MD [id number] 02/27/2013 14:37:00 02/27/2013 23:59:59 CLS Outpatient JUAN PABLO MALIK MD [id number] 10/15/2012 13:15:00 Document Registration [id number] 07/29/2012 10:48:00 Document Registration [id number] 08/10/2016 15:28:00 08/10/2016 16:25:00 DIS Outpatient Ramirez, [facility] [place] [id number] 09/20/2017 13:00:00 09/20/2017 23:59:59 CLS Outpatient [facility] [id number] 07/23/2017 14:30:00 Document Registration [id number] 06/13/2017 09:20:00 Document Registration
[2018-02-19] MEDS ORDERED: NS IV 1000 ML 1,000 ML IV SCH (18:45)
[2018-02-19 18:56] LABS: BASOPHILS # (AUTO) 0.1 10^3/uL (0.0-0.1); BASOPHILS % (AUTO) 1 % (0-10); EOSINOPHILS # (AUTO) 0.1 10^3/uL (0.0-0.3); EOSINOPHILS % (AUTO) 1 % (0-10); HEMATOCRIT 40 % (35-52); HEMOGLOBIN 13.6 G/DL (11.5-16.0); LYMPHOCYTES # (AUTO) 2.9 X 10^3 (1.0-4.0); LYMPHOCYTES % (AUTO) 42 % (12-44); MEAN CORPUSCULAR HEMOGLOBIN 30 PG (25-34); MEAN CORPUSCULAR HGB CONC 34 G/DL (32-36); MEAN CORPUSCULAR VOLUME 89 FL (80-99); MEAN PLATELET VOLUME 10.8 FL (7.4-10.4); MONOCYTES # (AUTO) 0.5 X 10^3 (0.0-1.0); MONOCYTES % (AUTO) 7 % (0-12); NEUTROPHILS # (AUTO) 3.4 X 10^3 (1.8-7.8); NEUTROPHILS % (AUTO) 49 % (42-75); PLATELET COUNT 188 10^3/uL (130-400); RED BLOOD COUNT 4.48 10^6/uL (4.35-5.85); RED CELL DISTRIBUTION WIDTH 11.9 % (10.0-14.5)
--- NOTE | 2018-02-19 19:01 | Diagnostic Imaging Report ---
PROCEDURE: CT head without contrast. TECHNIQUE: Multiple contiguous axial images were obtained through the brain without the use of intravenous contrast. INDICATION: Syncope, headache and visual disturbance CT HEAD: Multiple contiguous axial CT images of the head were obtained. FINDINGS: Ventricles and sulci are within normal limits for size. There is no intracranial hemorrhage identified. There is no abnormal mass effect or shift of midline structures. IMPRESSION: Unremarkable CT of the head. Dictated by: Dictated on workstation # [id number]
[2018-02-19 19:20] LABS: ALANINE AMINOTRANSFERASE 16 U/L (0-55); ALBUMIN 4.5 GM/DL (3.2-4.5); ALKALINE PHOSPHATASE 66 U/L (40-136); BUN/CREATININE RATIO 7; CALCIUM 9.7 MG/DL (8.5-10.1); CARBON DIOXIDE 22 MMOL/L (21-32); CHLORIDE 108 MMOL/L (98-107); CREATININE SERUM 0.74 MG/DL (0.60-1.30); GFR ESTIMATED > 60; GLUCOSE 98 MG/DL (70-105); POTASSIUM 3.8 MMOL/L (3.6-5.0); SODIUM 141 MMOL/L (135-145); TOTAL PROTEIN 7.1 GM/DL (6.4-8.2)
--- NOTE | 2018-02-19 19:28 | ED Syncope ---
General Chief Complaint: Neurological Problems Stated Complaint: FAINTING Nursing Triage Note: pt was visiting a pt in another unit of this hospital when she was witnessed as leaning against the wall and sliding to the floor then having a full body stiffness and muscular twitching. was unresponsive to voice. presents to the ED via W/C. Pt states she remembers ringing in her ears and vision changes. Source of Information: Patient Exam Limitations: No Limitations History of Present Illness Date Seen by Provider: Feb 19, 2018 Time Seen by Provider: 18:26 Initial Comments Patient is a 17-year-old female who was brought down to the emergency room by labor and delivery staff after she passed out while visiting a friend. Witnesses report that she was leaning against the wall when she started to slide down to the floor and her body became stiff and she started to twitch. She was unresponsive to voice. The patient reports that she remembers was ringing in her ears and vision changes. She is alert and oriented on arrival to the emergency room. There was no postictal period. She denies head or neck pain. Reports that she's been having sinus pressure and in her ear issues. Timing/Prior Episodes: No Prior History Symptoms Prior to Episode: None Precipitating Factors: None Loss of Consciousness: Brief (Seconds) Current Symptoms: Back to Normal Allergies and Home Medications Allergies Coded Allergies: No Known Drug Allergies (Unverified , 02/19/18) Patient Home Medication List Home Medication List Reviewed: Yes Review of Systems Constitutional: no symptoms reported, see HPI Cardiovascular: see HPI, syncope All Other Systems Reviewed Negative Unless Noted: Yes Past Jngchzr-Ngwpfm-Segnpq Hx Past Med/Social Hx: Reviewed Nursing Past Med/Soc Hx Patient Social History Alcohol Use: Occasionally Uses Alcohol Beverage of Choice: Beer Recreational Drug Use: No Smoking Status: Never a Smoker Recent Foreign Travel: No Contact w/Someone Who Travel: No Recent Infectious Disease Expo: No Recent Hopitalizations: No Immunizations Up To Date PED Vaccines UTD: Yes Seasonal Allergies Seasonal Allergies: No Past Medical History Surgeries: Yes (EAR TUBE PLACEMENT. UMBILLICAL HERNIA REPAIR) Respiratory: No Cardiac: No Neurological: Yes (BELLS PALSY) Genitourinary: No Gastrointestinal: No Musculoskeletal: No Endocrine: No HEENT: No Cancer: No Psychosocial: No Family Medical History Reviewed Nursing Family Hx Physical Exam Vital Signs Vital Signs - First Documented 02/19/18 18:26 Temp 97.3 Pulse 82 Resp 20 B/P (MAP) 119/62 Pulse Ox 99 O2 Delivery Room Air Capillary Refill : Height, Weight, BMI Height: 5'1.00" Weight: 110lbs. oz. 49.216202gl; 14.06 BMI Method:Stated General Appearance: No Apparent Distress, WD/WN Neck: Full Range of Motion, Normal Inspection, Non Tender, Supple Cardiovascular: Regular Rate, Rhythm, No Edema, No Gallop, No JVD, No Murmur, Normal Peripheral Pulses Respiratory: Chest Non Tender, Lungs Clear, Normal Breath Sounds, No Accessory Muscle Use, No Respiratory Distress Gastrointestinal: Normal Bowel Sounds, No Organomegaly, No Pulsatile Mass, Non Tender, Soft Neurologic/Psychiatric: Alert, Oriented x3, Normal Mood/Affect Cranial Nerves: Normal Hearing, Normal Speech, PERRL Coordination/Gait: Normal Finger to Nose, Normal Gait Motor/Sensory: No Motor Deficit, No Sensory Deficit Skin: Normal Color, Warm/Dry Lymphatic: No Adenopathy Progress/Results/Core Measures Results/Orders Lab Results Laboratory Tests Test 02/19/18 18:32 02/19/18 18:47 02/19/18 19:30 Range/Units Glucometer 101 70-110 MG/DL White Blood Count 7.0 4.3-11.0 10^3/uL Red Blood Count 4.48 4.35-5.85 10^6/uL Hemoglobin 13.6 11.5-16.0 G/DL Hematocrit 40 35-52 % Mean Corpuscular Volume 89 80-99 FL Mean Corpuscular Hemoglobin 30 25-34 PG Mean Corpuscular Hemoglobin Concent 34 32-36 G/DL Red Cell Distribution Width 11.9 10.0-14.5 % Platelet Count 188 130-400 10^3/uL Mean Platelet Volume 10.8 H 7.4-10.4 FL Neutrophils (%) (Auto) 49 42-75 % Lymphocytes (%) (Auto) 42 12-44 % Monocytes (%) (Auto) 7 0-12 % Eosinophils (%) (Auto) 1 0-10 % Basophils (%) (Auto) 1 0-10 % Neutrophils # (Auto) 3.4 1.8-7.8 X 10^3 Lymphocytes # (Auto) 2.9 1.0-4.0 X 10^3 Monocytes # (Auto) 0.5 0.0-1.0 X 10^3 Eosinophils # (Auto) 0.1 0.0-0.3 10^3/uL Basophils # (Auto) 0.1 0.0-0.1 10^3/uL Sodium Level 141 135-145 MMOL/L Potassium Level 3.8 3.6-5.0 MMOL/L Chloride Level 108 H 98-107 MMOL/L Carbon Dioxide Level 22 21-32 MMOL/L Anion Gap 11 5-14 MMOL/L Blood Urea Nitrogen 5 L 7-18 MG/DL Creatinine 0.74 0.60-1.30 MG/DL Estimat Glomerular Filtration Rate > 60 BUN/Creatinine Ratio 7 Glucose Level 98 70-105 MG/DL Calcium Level 9.7 8.5-10.1 MG/DL Corrected Calcium 9.3 8.5-10.1 MG/DL Total Bilirubin 1.0 0.1-1.0 MG/DL Aspartate Amino Transf (AST/SGOT) 20 5-34 U/L Alanine Aminotransferase (ALT/SGPT) 16 0-55 U/L Alkaline Phosphatase 66 40-136 U/L Total Protein 7.1 6.4-8.2 GM/DL Albumin 4.5 3.2-4.5 GM/DL Urine Color YELLOW Urine Clarity CLEAR Urine pH 8 5-9 Urine Specific Braggs 1.010 L 1.016-1.022 Urine Protein NEGATIVE NEGATIVE Urine Glucose (UA) NEGATIVE NEGATIVE Urine Ketones NEGATIVE NEGATIVE Urine Nitrite NEGATIVE NEGATIVE Urine Bilirubin NEGATIVE NEGATIVE Urine Urobilinogen NORMAL NORMAL MG/DL Urine Leukocyte Esterase NEGATIVE NEGATIVE Urine RBC (Auto) NEGATIVE NEGATIVE Urine RBC NONE /HPF Urine WBC RARE /HPF Urine Squamous Epithelial Cells 0-2 /HPF Urine Crystals NONE /LPF Urine Bacteria TRACE /HPF Urine Casts NONE /LPF Urine Mucus NEGATIVE /LPF Urine Culture Indicated NO Urine Opiates Screen NEGATIVE NEGATIVE Urine Oxycodone Screen NEGATIVE NEGATIVE Urine Methadone Screen NEGATIVE NEGATIVE Urine Propoxyphene Screen NEGATIVE NEGATIVE Urine Barbiturates Screen NEGATIVE NEGATIVE Ur Tricyclic Antidepressants Screen NEGATIVE NEGATIVE Urine Phencyclidine Screen NEGATIVE NEGATIVE Urine Amphetamines Screen NEGATIVE NEGATIVE Urine Methamphetamines Screen NEGATIVE NEGATIVE Urine Benzodiazepines Screen NEGATIVE NEGATIVE Urine Cocaine Screen NEGATIVE NEGATIVE Urine Cannabinoids Screen POSITIVE H NEGATIVE My Orders Orders - BERNOT,HUNTER Cbc With Automated Diff (02/19/18 18:31) Ekg Tracing (02/19/18 18:31) Comprehensive Metabolic Panel (02/19/18 18:31) Saline Lock/Iv-Start (02/19/18 18:31) Ns Iv 1000 Ml (Sodium Chloride 0.9%) (02/19/18 18:45) Accucheck Stat ONCE (02/19/18 18:31) Ct Head Wo (02/19/18 18:31) Ua Culture If Indicated (02/19/18 18:38) Drug Screen Stat (Urine) (02/19/18 18:38) Vital Signs/I&O 02/19/18 02/19/18 18:26 20:38 Temp 97.3 97.3 Pulse 82 100 Resp 20 16 B/P (MAP) 119/62 Pulse Ox 99 99 O2 Delivery Room Air Room Air FSBG Bedside Testing Finger Stick Blood Glucose: 101 Blood Glucose Action Taken: PROVIDER NOTIFIED. Progress Progress Note : Time: 19:50 Progress Note I have seen and evaluated the patient. She remains free of episodes of fainting during her ER stay. She remains alert and oriented during her stay. She was informed of her laboratory findings. She agrees with plan of care, plans for discharge, return precautions were given. Diagnostic Imaging Diagonstic Imaging: CT Plain Films/CT/US/NM/MRI: head Comments NAME: JENNIFER WILLSON MED REC#: [id number] PHYSICIAN: HUNTER COONEY CC: HUNTER COONEY; RACHEL FONTAINE MD Page 1 of 1 RADIOLOGY REPORT [place]IA [place], [place] CC: CHRISTOPHER COONEY THOMAS J MD Page 1 of 1 RADIOLOGY REPORT NAME: JENNIFER WILLSON [facility] REC#: [id number] PT STATUS: DEP ER : 2000 PHYSICIAN: HUNTER COONEY ADMIT DATE: 02/19/18/ER Signed Date of Exam: 02/19/18 CT HEAD WO PROCEDURE: CT head without contrast. TECHNIQUE: Multiple contiguous axial images were obtained through the brain without the use of intravenous contrast. INDICATION: Syncope, headache and visual disturbance CT HEAD: Multiple contiguous axial CT images of the head were obtained. FINDINGS: Ventricles and sulci are within normal limits for size. There is no intracranial hemorrhage identified. There is no abnormal mass effect or shift of midline structures. IMPRESSION: Unremarkable CT of the head. Dictated by: Dictated on workstation # [id number] Dict: 02/19/181858 Trans: 02/19/182208 Interpreted by: RACHEL FONTAINE MD Electronically signed by: RACHEL FONTAINE MD 02/19/182208 Reviewed: Reviewed by Me Departure Impression Primary Impression: Syncope Additional Impression: Marijuana use Disposition: HOME, SELF-CARE Condition: Stable/Unchanged Departure-Patient Inst. Decision time for Depature: 19:53 Referrals: UNKNOWN (PCP) Primary Care Physician RUBEN KAISER DO Patient Instructions: Syncope (Fainting) (DC) Add. Discharge Instructions: Follow-up with your primary care provider within 1 week for recheck. Return back to the emergency room for any worsening symptoms or if you should have any more fainting spells, or any other concerns as needed. All discharge instructions reviewed with patient and/or family. Voiced understanding. HUNTER COONEY Feb 19, 2018 19:27
[2018-02-19 19:36] LABS: BILIRUBIN,URINE NEGATIVE (NEGATIVE); CLARITY,URINE CLEAR; COLOR,URINE YELLOW; GLUCOSE, URINE (UA) NEGATIVE (NEGATIVE); KETONES,URINE NEGATIVE (NEGATIVE); LEUKOCYTE ESTERASE ,URINE NEGATIVE (NEGATIVE); NITRITE,URINE NEGATIVE (NEGATIVE); PH,URINE 8 (5-9); PROTEIN,URINE NEGATIVE (NEGATIVE); UROBILINOGEN,URINE NORMAL (NORMAL)
[2018-02-19 19:44] LABS: BACTERIA,URINE TRACE /HPF; WBC,URINE RARE /HPF
[2018-02-19 19:48] LABS: SQUAMOUS EPITHELIAL CELL,UR 0-2 /HPF
[2018-02-19 19:49] LABS: AMPHETAMINE SCREEN, URINE NEGATIVE (NEGATIVE); BARBITURATE SCREEN URINE NEGATIVE (NEGATIVE); BENZODIAZEPINES SCREEN URINE NEGATIVE (NEGATIVE); CANNABINOID SCREEN, URINE POSITIVE (NEGATIVE); COCAINE SCREEN URINE NEGATIVE (NEGATIVE); METHADONE STAT NEGATIVE (NEGATIVE); METHAMPHETAMINE SCREEN URINE S NEGATIVE (NEGATIVE); OPIATE SCREEN URINE NEGATIVE (NEGATIVE); OXYCODONE STAT NEGATIVE (NEGATIVE); PROPOXYPHENE STAT NEGATIVE (NEGATIVE); TRICYCLIC ANTIDEPRESSANTS SCRE NEGATIVE (NEGATIVE)
== END 2018-02-19 20:37 | disposition home or self-care (01) ==
LOC: ER 18:26
DX: R55 Syncope and collapse (principal); F12.90 Cannabis use, unspecified, uncomplicated; Z98.890 Other specified postprocedural states
CPT/HCPCS: 36415; 70450; 80053; 80306; 81000; 82962; 85025; 93005; 96360

== ENCOUNTER 2019-10-30 08:03 | Outpatient (RCR) | payer OTHER ==
[2019-10-30] VITALS (16 sets, daily range): BP systolic 100–113; BP diastolic 61–76
[~2019-10-30] VITALS: Ht 154.9 cm; Wt 54.5 kg
[2019-10-30] MEDS ORDERED: NS IV 1000 ML 1,000 ML ONE (08:11)
[2019-10-30] MEDS ORDERED: NS IV 1000 ML 1,000 ML IV SCH (08:15)
[2019-10-30] MEDS ORDERED: ATROPINE INJECTION 1 MG/10 ML SYR (ABBOTT) ONE (08:34)
--- NOTE | 2019-10-30 09:45 | NUR ---
iv dc'd, and drink offered and taken. ambulatory to diagnostics room for monitor
--- NOTE | 2019-11-01 14:12 | Cardiology Tilt Table Test ---
Cardiology-Tilt Table Test Tilt Table Test Date 11/01/19 Baseline Vitals Vital Signs Date Time Temp Pulse Resp B/P (MAP) Pulse Ox O2 Delivery O2 Flow Rate FiO2 10/30/19 08:54 36.7 73 20 107/63 (78) 100 10/30/19 09:05 Room Air Vital Signs VS - Last 72 Hours, by Label 10/30/19 10/30/19 10/30/19 10/30/19 08:54 09:05 09:07 09:08 Temp 36.7 Pulse 73 76 81 89 Resp 20 B/P (MAP) 107/63 (78) 113/66 (82) 106/68 (81) 110/66 (81) Pulse Ox 100 100 100 O2 Delivery Room Air 10/30/19 10/30/19 10/30/19 10/30/19 09:10 09:11 09:12 09:14 Pulse 91 86 84 79 B/P (MAP) 103/68 (80) 111/64 (80) 103/72 (82) 100/65 (77) Pulse Ox 98 10/30/19 10/30/19 10/30/19 10/30/19 09:16 09:19 09:22 09:25 Pulse 67 61 79 90 B/P (MAP) 107/61 (76) 104/65 (78) 107/67 (80) 112/66 (81) Pulse Ox 99 98 10/30/19 10/30/19 10/30/19 10/30/19 09:28 09:31 09:35 09:38 Pulse 89 86 92 93 B/P (MAP) 108/73 (85) 113/68 (83) 111/76 (88) 110/65 (80) Pulse Ox 98 97 99 Patient was tilted to 75 degrees for [10] minutes, then returned to supine position, given [2] sublingual nitroglycerin tablets, then tilted again to 75 degrees for [15] minutes. During test, patient was: asymptomatic In Conclusion;: Negative Tilt Table Test Leidy LAGUNA MD Nov 01, 2019 14:12
== END 2020-01-28 | disposition home or self-care (01) ==
LOC: CARD 08:03
PROVIDERS: ATTEND Internal Medicine Interventional Cardiology
DX: I49.9 Cardiac arrhythmia, unspecified (principal); R55 Syncope and collapse; Z80.9 Family history of malignant neoplasm, unspecified
CPT/HCPCS: 93270; 93306; 93660

== ENCOUNTER 2021-10-13 14:44 | Emergency (ER) | payer SELFPAY | END 2021-10-13 15:15 | disposition left against medical advice (07) | LOC: EDUNIT# 14:44 → ER 14:47 | DX: S61.011A Laceration without foreign body of right thumb without damage to nail, initial encounter (principal); X58.XXXA Exposure to other specified factors, initial encounter ==